=== PATIENT | female | born 1960 | race Caucasian/White ===

== ENCOUNTER 2016-12-29 17:51 | Inpatient (IN) | payer MEDICARE ==
[~2016-12-29] VITALS: Ht 175.3 cm; Wt 99.9 kg
[~2016-12-29 17:51] MED LIST: ALLEGRA-D 1212 HOUR PO; ALPRAZOLAM0.5 MG OR; ALPRAZOLAM0.5 MG PO; AUGMENTIN500TAB PO; BACTRIM DS1 TAB PO; BAYER ASPIRIN325 M1 PO; CALCIUM600 M1 PO; CAPOTEN12.5 MG PO; CIPRO XR500 MG PO; CIPROFLOXACN500 MG PO; DICLOXACILL500 MG PO; DOXYCYCL HYC100 MG PO; ECOTRIN325 MG PO; ENALAPRIL10 MG PO; FISH OIL1000 MG PO; FLONASE NASAL50 MCG; GLIPIZIDE10 M2 PO; GLIPIZIDE10 MG PO; K-99 PO; KEFLEX500 M1 PO; KEFLEX500 MG OR; KEPPRA500 M1 PO; KEPPRA500 M2 PO; KEPPRA500 MG PO; LASIX40 MG PO; LEVAQUIN500 MG PO; LEVAQUIN750 MG PO; LEVETIRACETAM500 MG PO; LEVOTHYROXIN100 MC1 PO; LEVOTHYROXIN125 MC1 PO; LEVOTHYROXIN125 MCG PO; LEVOTHYROXIN200 MCG PO; Levaquin PO; MACROBID100 MG PO; MAG OXIDE400 MG PO; MAGNESIUM200 MG PO; MAGNESIUM400 MG PO; MEDDOSEPAK PO; METFORMIN1000 MG PO; METFORMIN500 M1 PO; METRONIDAZOL500 MG PO; PERCOCET 5/325M1 TAB PO; POTASSIUM99 MG PO; ROBITUSSIN AC10 ML PO; SYNTHROID100 MCG PO; SYNTHROID125 MCG PO; SYNTHROID25 MCG PO; SYNTHROID300 MCG PO; TUMS500 MG PO; VENTOLIN HFA IN; VITAMIN D400 UNI1 PO; VITAMIN D400 UNI2 PO
[2016-12-29 18:40] LABS: HEMATOCRIT 29.4 % (37.0-47.0); HEMOGLOBIN 9.4 g/dl (12.0-16.0); IMMATURE GRANULOCYTES 0.5 % (0.0-1.0); MEAN CELL VOLUME 79.5 fL CALC (80.0-100.0); MEAN CORPUSCULAR HGB 25.4 pG CALC (26.0-32.0); NEUT# 8.28 thou/uL (2.00-7.15); RED BLOOD COUNT 3.7 mill/uL (4.20-5.60)
[2016-12-29 18:49] LABS: ALKALINE PHOSPHATASE 80 u/l (38-126); ANION GAP 17 (6-22 (CALC)); BILIRUBIN, TOTAL 0.4 mg/dL (0.0-1.4); BUN 16 mg/dL (7-17); BUN/CREATININE RATIO 21 (12-20 (CALC)); CARBON DIOXIDE 28 mmol/l (22-30); CHLORIDE 94 mmol/l (95-108); CREATININE 0.8 mg/dL (0.5-1.0); GFR > 60 ML/MIN (>=60 (CALC)); GFR FOR AFR.AMER. > 60 ML/MIN (>=60 (CALC)); GLUCOSE 224 mg/dL (65-105); POTASSIUM 4.1 mmol/l (3.5-5.1); SGOT/AST 49 u/l (14-36); SGPT/ALT 39 u/l (9-52); SODIUM 134 mmol/l (137-146); TOTAL PROTEIN 7.7 g/dL (6.3-8.2)
[2016-12-29 18:56] LABS: CALCIUM 4.3 mg/dL (8.4-10.2)
[2016-12-29 19:01] LABS: MYOGLOBIN 54 ng/mL (0 - 62)
[2016-12-29 23:00] VITALS: BP 138/77
[2016-12-29 23:30] VITALS: BP 138/63
[2016-12-29 23:45] VITALS: BP 135/82
[2016-12-29 23:53] LABS: URINE BILIRUBIN - DIPSTICK NEGATIVE (NEGATIVE); URINE BLOOD DIPSTICK SMALL (NEGATIVE); URINE CLARITY CLEAR; URINE COLOR YELLOW; URINE GLUCOSE - DIPSTICK NEGATIVE (NEGATIVE); URINE KETONE NEGATIVE (NEGATIVE); URINE LEUK ESTERASE TRACE (Negative); URINE NITRITE - DIPSTICK NEGATIVE (Negative); URINE PH 6.5 (4.5-8.0); URINE PROTEIN - DIPSTICK NEGATIVE (NEG-TRACE); URINE SPECIFIC GRAVITY <=1.005; URINE UROBILINOGEN - DIPSTICK 0.2 E.U./dL (0.2)
[2016-12-30 00:01] VITALS: BP 124/69
[2016-12-30 00:33] LABS: URINE SQUAMOUS EPITHELIAL CELL FEW EPI/hpf (0-FEW); URINE WBC 0-2 WBC/hpf (0-5)
[2016-12-30 02:00] VITALS: BP 139/65
[2016-12-30 04:00] VITALS: BP 128/70
[2016-12-30 06:00] VITALS: BP 127/77
[2016-12-30 06:22] LABS: HEMATOCRIT 29.1 % (37.0-47.0); HEMOGLOBIN 9.3 g/dl (12.0-16.0); IMMATURE GRANULOCYTES 0.2 % (0.0-1.0); MEAN CELL VOLUME 78.9 fL CALC (80.0-100.0); MEAN CORPUSCULAR HGB 25.2 pG CALC (26.0-32.0); NEUT# 6.09 thou/uL (2.00-7.15); RED BLOOD COUNT 3.69 mill/uL (4.20-5.60)
[2016-12-30 06:34] LABS: ALBUMIN 3.8 g/dL (3.2-5.0); ALKALINE PHOSPHATASE 90 u/l (38-126); ANION GAP 15 (6-22 (CALC)); BILIRUBIN, TOTAL 0.4 mg/dL (0.0-1.4); BUN 13 mg/dL (7-17); BUN/CREATININE RATIO 18 (12-20 (CALC)); CARBON DIOXIDE 28 mmol/l (22-30); CHLORIDE 98 mmol/l (95-108); CREATININE 0.7 mg/dL (0.5-1.0); GFR > 60 ML/MIN (>=60 (CALC)); GFR FOR AFR.AMER. > 60 ML/MIN (>=60 (CALC)); GLUCOSE 126 mg/dL (65-105); POTASSIUM 4.1 mmol/l (3.5-5.1); SGOT/AST 23 u/l (14-36); SGPT/ALT 38 u/l (9-52); SODIUM 136 mmol/l (137-146); TOTAL PROTEIN 7.4 g/dL (6.3-8.2)
[2016-12-30 07:53] LABS: TSH, 3RD GENERATION 3.4 uIU/mL (0.47 - 4.68)
[2016-12-30 13:23] LABS: C. DIFFICILE TOXIN A&B NEGATIVE (NEGATIVE)
[2016-12-30 18:47] LABS: ANION GAP 13 (6-22 (CALC)); BUN 12 mg/dL (7-17); BUN/CREATININE RATIO 22 (12-20 (CALC)); CARBON DIOXIDE 21 mmol/l (22-30); CHLORIDE 105 mmol/l (95-108); CREATININE 0.6 mg/dL (0.5-1.0); GFR > 60 ML/MIN (>=60 (CALC)); GFR FOR AFR.AMER. > 60 ML/MIN (>=60 (CALC)); GLUCOSE 134 mg/dL (65-105); POTASSIUM 4.1 mmol/l (3.5-5.1); SODIUM 136 mmol/l (137-146)
[2016-12-30 18:48] LABS: CALCIUM 4.4 mg/dL (8.4-10.2)
[2016-12-30 19:00] VITALS: BP 110/53
[2016-12-30 23:00] VITALS: BP 114/73
[2016-12-31] VITALS (9 sets, daily range): BP systolic 99–121; BP diastolic 52–71
[2016-12-31 06:33] LABS: HEMATOCRIT 30.4 % (37.0-47.0); HEMOGLOBIN 9.5 g/dl (12.0-16.0); IMMATURE GRANULOCYTES 0.4 % (0.0-1.0); MEAN CELL VOLUME 80.4 fL CALC (80.0-100.0); MEAN CORPUSCULAR HGB 25.1 pG CALC (26.0-32.0); MEAN CORPUSCULAR HGB CONC 31.3 g/L CALC (32.0-36.0); NEUT# 5.09 thou/uL (2.00-7.15); RED BLOOD COUNT 3.78 mill/uL (4.20-5.60); RED CELL DISTRI WIDTH 16.2 % (11.5-15.5)
[2016-12-31 06:52] LABS: ANION GAP 18 (6-22 (CALC)); BUN 14 mg/dL (7-17); BUN/CREATININE RATIO 19 (12-20 (CALC)); CARBON DIOXIDE 26 mmol/l (22-30); CHLORIDE 98 mmol/l (95-108); CREATININE 0.7 mg/dL (0.5-1.0); GFR > 60 ML/MIN (>=60 (CALC)); GFR FOR AFR.AMER. > 60 ML/MIN (>=60 (CALC)); GLUCOSE 96 mg/dL (65-105); POTASSIUM 4.4 mmol/l (3.5-5.1); SODIUM 137 mmol/l (137-146)
[2016-12-31 07:01] LABS: CALCIUM 5.5 mg/dL (8.4-10.2)
[2016-12-31 16:47] LABS: ALBUMIN 3.5 g/dL (3.2-5.0); ALKALINE PHOSPHATASE 69 u/l (38-126); ANION GAP 15 (6-22 (CALC)); BILIRUBIN, TOTAL 0.3 mg/dL (0.0-1.4); BUN 14 mg/dL (7-17); BUN/CREATININE RATIO 18 (12-20 (CALC)); CARBON DIOXIDE 27 mmol/l (22-30); CHLORIDE 103 mmol/l (95-108); CREATININE 0.8 mg/dL (0.5-1.0); GFR > 60 ML/MIN (>=60 (CALC)); GFR FOR AFR.AMER. > 60 ML/MIN (>=60 (CALC)); GLUCOSE 95 mg/dL (65-105); POTASSIUM 4.4 mmol/l (3.5-5.1); SGOT/AST 20 u/l (14-36); SGPT/ALT 32 u/l (9-52); SODIUM 140 mmol/l (137-146); TOTAL PROTEIN 6.8 g/dL (6.3-8.2)
[2016-12-31 16:55] LABS: CALCIUM 5.9 mg/dL (8.4-10.2)
[2017-01-01] VITALS (8 sets, daily range): BP systolic 106–140; BP diastolic 58–78
[2017-01-01 04:26] LABS: IMMATURE GRANULOCYTES 0.3 % (0.0-1.0); MEAN CELL VOLUME 81.7 fL CALC (80.0-100.0); MEAN CORPUSCULAR HGB 25.4 pG CALC (26.0-32.0); NEUT# 4.16 thou/uL (2.00-7.15); RED BLOOD COUNT 3.55 mill/uL (4.20-5.60); RED CELL DISTRI WIDTH 16.1 % (11.5-15.5)
[2017-01-01 04:31] LABS: ALBUMIN 3.5 g/dL (3.2-5.0); ALKALINE PHOSPHATASE 77 u/l (38-126); ANION GAP 15 (6-22 (CALC)); BILIRUBIN, TOTAL 0.3 mg/dL (0.0-1.4); BUN 15 mg/dL (7-17); BUN/CREATININE RATIO 21 (12-20 (CALC)); CARBON DIOXIDE 24 mmol/l (22-30); CHLORIDE 106 mmol/l (95-108); CREATININE 0.7 mg/dL (0.5-1.0); GFR > 60 ML/MIN (>=60 (CALC)); GFR FOR AFR.AMER. > 60 ML/MIN (>=60 (CALC)); GLUCOSE 101 mg/dL (65-105); POTASSIUM 4.9 mmol/l (3.5-5.1); SGOT/AST 68 u/l (14-36); SGPT/ALT 39 u/l (9-52); SODIUM 140 mmol/l (137-146); TOTAL PROTEIN 6.8 g/dL (6.3-8.2)
[2017-01-01 04:34] LABS: CALCIUM 5.6 mg/dL (8.4-10.2)
[2017-01-01 18:19] LABS: ANION GAP 17 (6-22 (CALC)); BUN 13 mg/dL (7-17); BUN/CREATININE RATIO 17 (12-20 (CALC)); CARBON DIOXIDE 26 mmol/l (22-30); CHLORIDE 103 mmol/l (95-108); CREATININE 0.7 mg/dL (0.5-1.0); GFR > 60 ML/MIN (>=60 (CALC)); GFR FOR AFR.AMER. > 60 ML/MIN (>=60 (CALC)); GLUCOSE 111 mg/dL (65-105); POTASSIUM 4.5 mmol/l (3.5-5.1); SODIUM 142 mmol/l (137-146)
[2017-01-02 02:00] VITALS: BP 101/53
[2017-01-02 03:03] VITALS: BP 110/70
[2017-01-02 04:02] VITALS: BP 110/68
[2017-01-02 04:41] LABS: HEMATOCRIT 28.5 % (37.0-47.0); HEMOGLOBIN 8.9 g/dl (12.0-16.0); IMMATURE GRANULOCYTES 0.3 % (0.0-1.0); MEAN CELL VOLUME 82.1 fL CALC (80.0-100.0); MEAN CORPUSCULAR HGB 25.6 pG CALC (26.0-32.0); MEAN CORPUSCULAR HGB CONC 31.2 g/L CALC (32.0-36.0); NEUT# 4.85 thou/uL (2.00-7.15); RED BLOOD COUNT 3.47 mill/uL (4.20-5.60); RED CELL DISTRI WIDTH 16.3 % (11.5-15.5)
[2017-01-02 04:49] LABS: ALBUMIN 3.7 g/dL (3.2-5.0); ALKALINE PHOSPHATASE 72 u/l (38-126); ANION GAP 15 (6-22 (CALC)); BILIRUBIN, TOTAL 0.3 mg/dL (0.0-1.4); BUN 13 mg/dL (7-17); BUN/CREATININE RATIO 17 (12-20 (CALC)); CARBON DIOXIDE 25 mmol/l (22-30); CHLORIDE 105 mmol/l (95-108); CREATININE 0.8 mg/dL (0.5-1.0); GFR > 60 ML/MIN (>=60 (CALC)); GFR FOR AFR.AMER. > 60 ML/MIN (>=60 (CALC)); GLUCOSE 74 mg/dL (65-105); POTASSIUM 4.8 mmol/l (3.5-5.1); SGOT/AST 31 u/l (14-36); SGPT/ALT 41 u/l (9-52); SODIUM 140 mmol/l (137-146)
[2017-01-02 06:10] VITALS: BP 103/58
[2017-01-02 19:00] VITALS: BP 136/71
[2017-01-02 22:40] VITALS: BP 119/67
[2017-01-03 04:32] LABS: HEMATOCRIT 29.5 % (37.0-47.0); HEMOGLOBIN 9.1 g/dl (12.0-16.0); IMMATURE GRANULOCYTES 0.4 % (0.0-1.0); MEAN CELL VOLUME 80.6 fL CALC (80.0-100.0); MEAN CORPUSCULAR HGB 24.9 pG CALC (26.0-32.0); MEAN CORPUSCULAR HGB CONC 30.8 g/L CALC (32.0-36.0); NEUT# 5.53 thou/uL (2.00-7.15); RED BLOOD COUNT 3.66 mill/uL (4.20-5.60); RED CELL DISTRI WIDTH 16.4 % (11.5-15.5)
[2017-01-03 04:45] LABS: ALBUMIN 3.6 g/dL (3.2-5.0); ALKALINE PHOSPHATASE 80 u/l (38-126); ANION GAP 14 (6-22 (CALC)); BILIRUBIN, TOTAL 0.4 mg/dL (0.0-1.4); BUN 12 mg/dL (7-17); BUN/CREATININE RATIO 15 (12-20 (CALC)); CARBON DIOXIDE 27 mmol/l (22-30); CHLORIDE 104 mmol/l (95-108); CREATININE 0.8 mg/dL (0.5-1.0); GFR > 60 ML/MIN (>=60 (CALC)); GFR FOR AFR.AMER. > 60 ML/MIN (>=60 (CALC)); GLUCOSE 76 mg/dL (65-105); POTASSIUM 4.4 mmol/l (3.5-5.1); SGOT/AST 23 u/l (14-36); SGPT/ALT 41 u/l (9-52); SODIUM 140 mmol/l (137-146); TOTAL PROTEIN 6.8 g/dL (6.3-8.2)
[2017-01-03 06:00] VITALS: BP 110/60
[2017-01-03] MEDS ORDERED: METRONIDAZOLE500 MG PO (07:48)
[2017-01-03] MEDS ORDERED: DICYCLOMINE HCL10 MG PO (07:49)
[2017-01-03 07:53] VITALS: BP 143/81
== END 2017-01-03 08:25 | disposition home or self-care (01) | DRG 641 ==
LOC: ENPENDDIS → ED 17:51 → ED-I 20:59 → ED 21:17 → ICU 21:17
PROVIDERS: Emergency Medicine; ADMIT Internal Medicine Geriatric Medicine; ATTEND Internal Medicine Geriatric Medicine
DX: E83.51 Hypocalcemia (principal); I11.0 Hypertensive heart disease with heart failure; I50.9 Heart failure, unspecified; E11.40 Type 2 diabetes mellitus with diabetic neuropathy, unspecified; I48.91 Unspecified atrial fibrillation; F32.9 Major depressive disorder, single episode, unspecified; E86.0 Dehydration; E87.1 Hypo-osmolality and hyponatremia; E78.5 Hyperlipidemia, unspecified; J44.9 Chronic obstructive pulmonary disease, unspecified; F17.210 Nicotine dependence, cigarettes, uncomplicated; E89.2 Postprocedural hypoparathyroidism; I25.10 Atherosclerotic heart disease of native coronary artery without angina pectoris; F41.9 Anxiety disorder, unspecified; M19.90 Unspecified osteoarthritis, unspecified site; M81.8 Other osteoporosis without current pathological fracture; E89.0 Postprocedural hypothyroidism; R19.7 Diarrhea, unspecified; Z91.14 Patient's other noncompliance with medication regimen; Z89.421 Acquired absence of other right toe(s); Z89.411 Acquired absence of right great toe
CPT/HCPCS: P9047

== ENCOUNTER 2017-02-12 16:35 | Inpatient (IN) | payer MEDICARE ==
[~2017-02-12] VITALS: Ht 175.3 cm; Wt 94.0 kg
[~2017-02-12 16:35] MED LIST changes: +DICYCLOMINE HCL10 MG PO; +METRONIDAZOLE500 MG PO
[2017-02-12 17:26] LABS: HEMATOCRIT 52.7 % (37.0-47.0); HEMOGLOBIN 16.7 g/dl (12.0-16.0); IMMATURE GRANULOCYTES 0.4 % (0.0-1.0); MEAN CELL VOLUME 82.7 fL CALC (80.0-100.0); MEAN CORPUSCULAR HGB 26.2 pG CALC (26.0-32.0); MEAN CORPUSCULAR HGB CONC 31.7 g/L CALC (32.0-36.0); NEUT# 9.82 thou/uL (2.00-7.15); RED BLOOD COUNT 6.37 mill/uL (4.20-5.60); RED CELL DISTRI WIDTH 23.7 % (11.5-15.5)
[2017-02-12 17:59] LABS: INTERNATIONAL NORMALIZED RATIO 1.5 RATIO (0.7-1.3); PROTHROMBIN TIME 16.4 SECONDS (9.0-12.5)
[2017-02-12 18:06] LABS: ALBUMIN 4.9 g/dL (3.2-5.0); BILIRUBIN, TOTAL 0.5 mg/dL (0.0-1.4); CALCIUM 6.7 mg/dL (8.4-10.2); CREATININE 1.2 mg/dL (0.5-1.0); POTASSIUM 4.4 mmol/l (3.5-5.1); TOTAL PROTEIN 8.7 g/dL (6.3-8.2)
[2017-02-12 18:14] LABS: C. DIFFICILE TOXIN A&B NEGATIVE (NEGATIVE)
[2017-02-12 18:21] LABS: URINE BILIRUBIN - DIPSTICK NEGATIVE (NEGATIVE); URINE BLOOD DIPSTICK NEGATIVE (NEGATIVE); URINE CLARITY CLEAR; URINE COLOR YELLOW; URINE GLUCOSE - DIPSTICK NEGATIVE (NEGATIVE); URINE KETONE TRACE mg/dL (NEGATIVE); URINE LEUK ESTERASE NEGATIVE (NEGATIVE); URINE NITRITE - DIPSTICK NEGATIVE (Negative); URINE PH 5.5 (4.5-8.0); URINE PROTEIN - DIPSTICK 30 mg/dL (NEG-TRACE); URINE SPECIFIC GRAVITY >=1.030; URINE UROBILINOGEN - DIPSTICK 0.2 E.U./dL (0.2)
[2017-02-12] MEDS ORDERED: LEVOTHYROXIN200 MCG PO (18:49)
[2017-02-12 18:51] LABS: URINE SQUAMOUS EPITHELIAL CELL FEW EPI/hpf (0-FEW)
[2017-02-12 19:40] VITALS: BP 112/53
[2017-02-13 00:04] VITALS: BP 115/64
[2017-02-13 04:44] VITALS: BP 113/66
[2017-02-13 05:33] LABS: HEMATOCRIT 36.6 % (37.0-47.0); HEMOGLOBIN 11.8 g/dl (12.0-16.0); IMMATURE GRANULOCYTES 0.4 % (0.0-1.0); MEAN CELL VOLUME 81.7 fL CALC (80.0-100.0); MEAN CORPUSCULAR HGB 26.3 pG CALC (26.0-32.0); MEAN CORPUSCULAR HGB CONC 32.2 g/L CALC (32.0-36.0); NEUT# 4.98 thou/uL (2.00-7.15); RED BLOOD COUNT 4.48 mill/uL (4.20-5.60); RED CELL DISTRI WIDTH 22.7 % (11.5-15.5)
[2017-02-13 05:51] LABS: ALBUMIN 3.5 g/dL (3.2-5.0); ALKALINE PHOSPHATASE 60 u/l (38-126); ANION GAP 14 (6-22 (CALC)); BILIRUBIN, TOTAL 0.5 mg/dL (0.0-1.4); BUN 20 mg/dL (7-17); BUN/CREATININE RATIO 26 (12-20 (CALC)); CARBON DIOXIDE 21 mmol/l (22-30); CHLORIDE 106 mmol/l (95-108); CREATININE 0.8 mg/dL (0.5-1.0); GFR > 60 ML/MIN (>=60 (CALC)); GFR FOR AFR.AMER. > 60 ML/MIN (>=60 (CALC)); GLUCOSE 97 mg/dL (65-105); POTASSIUM 4.4 mmol/l (3.5-5.1); SGOT/AST 17 u/l (14-36); SGPT/ALT 31 u/l (9-52); SODIUM 137 mmol/l (137-146); TOTAL PROTEIN 6.1 g/dL (6.3-8.2)
[2017-02-13 05:57] LABS: CALCIUM 5.6 mg/dL (8.4-10.2)
[2017-02-13 07:00] VITALS: BP 111/72
[2017-02-13 16:00] VITALS: BP 111/74
[2017-02-13 19:29] VITALS: BP 108/50
[2017-02-14 04:15] VITALS: BP 111/65
[2017-02-14 06:05] LABS: HEMATOCRIT 36.7 % (37.0-47.0); HEMOGLOBIN 12.4 g/dl (12.0-16.0); RED BLOOD COUNT 4.46 mill/uL (4.20-5.60)
[2017-02-14 06:06] LABS: LYMPH% 30 % (15-41); MEAN CELL VOLUME 82.3 fL CALC (80.0-100.0); MEAN CORPUSCULAR HGB 27.8 pG CALC (26.0-32.0); MEAN CORPUSCULAR HGB CONC 33.8 g/L CALC (32.0-36.0); NEUT% 61 % (42-76); PLATELET COUNT 218 thou/uL (130-400); RED CELL DISTRI WIDTH 21.7 % (11.5-15.5)
[2017-02-14 06:07] LABS: MONO% 9 % (2-13)
[2017-02-14 06:23] LABS: ALBUMIN 3.9 g/dL (3.2-5.0); ALKALINE PHOSPHATASE 63 u/l (38-126); ANION GAP 15 (6-22 (CALC)); BILIRUBIN, TOTAL 0.3 mg/dL (0.0-1.4); BUN 19 mg/dL (7-17); BUN/CREATININE RATIO 25 (12-20 (CALC)); CALCIUM 6.3 mg/dL (8.4-10.2); CARBON DIOXIDE 26 mmol/l (22-30); CHLORIDE 103 mmol/l (95-108); CREATININE 0.7 mg/dL (0.5-1.0); GFR > 60 ML/MIN (>=60 (CALC)); GFR FOR AFR.AMER. > 60 ML/MIN (>=60 (CALC)); GLUCOSE 89 mg/dL (65-105); POTASSIUM 4.7 mmol/l (3.5-5.1); SGOT/AST 22 u/l (14-36); SGPT/ALT 31 u/l (9-52); SODIUM 139 mmol/l (137-146); TOTAL PROTEIN 6.8 g/dL (6.3-8.2)
[2017-02-14 06:54] LABS: TSH, 3RD GENERATION 7.49 uIU/mL (0.47 - 4.68)
[2017-02-14 07:00] VITALS: BP 115/53
[2017-02-14] MEDS ORDERED: LEVOTHYROXIN100 MC1 PO (14:00)
[2017-02-14] MEDS ORDERED: LEVOTHYROXIN50 MC1 PO (14:01)
[2017-02-14] MEDS ORDERED: METRONIDAZOLE500 MG PO (14:02)
[2017-02-14 14:58] LABS: ALBUMIN 3.9 g/dL (3.2-5.0); ALKALINE PHOSPHATASE 56 u/l (38-126); ANION GAP 15 (6-22 (CALC)); BILIRUBIN, TOTAL 0.2 mg/dL (0.0-1.4); BUN 20 mg/dL (7-17); BUN/CREATININE RATIO 26 (12-20 (CALC)); CALCIUM 6.5 mg/dL (8.4-10.2); CARBON DIOXIDE 27 mmol/l (22-30); CHLORIDE 101 mmol/l (95-108); CREATININE 0.8 mg/dL (0.5-1.0); GFR > 60 ML/MIN (>=60 (CALC)); GFR FOR AFR.AMER. > 60 ML/MIN (>=60 (CALC)); GLUCOSE 151 mg/dL (65-105); POTASSIUM 4.9 mmol/l (3.5-5.1); SGOT/AST 28 u/l (14-36); SGPT/ALT 31 u/l (9-52); SODIUM 139 mmol/l (137-146)
== END 2017-02-14 15:56 | disposition home or self-care (01) | DRG 372 ==
LOC: ENPENDDIS → ED 16:35 → ED-I 18:23 → ED 18:48 → MS2 18:49
PROVIDERS: Emergency Medicine; ADMIT Internal Medicine; ATTEND Internal Medicine Geriatric Medicine
DX: A04.5 Campylobacter enteritis (principal); N17.9 Acute kidney failure, unspecified; E11.42 Type 2 diabetes mellitus with diabetic polyneuropathy; E11.51 Type 2 diabetes mellitus with diabetic peripheral angiopathy without gangrene; E83.51 Hypocalcemia; F17.210 Nicotine dependence, cigarettes, uncomplicated; E89.2 Postprocedural hypoparathyroidism; J44.9 Chronic obstructive pulmonary disease, unspecified; I25.10 Atherosclerotic heart disease of native coronary artery without angina pectoris; I48.91 Unspecified atrial fibrillation; F41.9 Anxiety disorder, unspecified; F32.9 Major depressive disorder, single episode, unspecified; M19.90 Unspecified osteoarthritis, unspecified site; Z89.411 Acquired absence of right great toe; Z91.14 Patient's other noncompliance with medication regimen
CPT/HCPCS: G0378

== ENCOUNTER 2017-04-20 13:40 | Emergency (ER) | payer MEDICARE ==
[~2017-04-20] VITALS: Ht 175.3 cm; Wt 80.0 kg
[~2017-04-20 13:40] MED LIST changes: +LEVOTHYROXIN50 MC1 PO
[2017-04-20] MEDS ORDERED: MUPIROCIN2 % EX (13:55)
[2017-04-20] MEDS ORDERED: BACTRIM DS1 TAB PO (13:57)
[2017-04-20 14:01] VITALS: BP 167/99
== END 2017-04-20 14:01 | disposition home or self-care (01) ==
LOC: ED 13:40
DX: S91.202A Unspecified open wound of left great toe with damage to nail, initial encounter (principal); E11.621 Type 2 diabetes mellitus with foot ulcer; W45.8XXA Other foreign body or object entering through skin, initial encounter; Y93.E8 Activity, other personal hygiene; Y92.009 Unspecified place in unspecified non-institutional (private) residence as the place of occurrence of the external cause

== ENCOUNTER 2017-05-05 19:28 | Emergency (ER) | payer MEDICARE ==
[~2017-05-05] VITALS: Ht 175.3 cm; Wt 60.0 kg
[~2017-05-05 19:28] MED LIST changes: +MUPIROCIN2 % EX
[2017-05-05 21:00] VITALS: BP 101/78
[2017-05-05 21:24] LABS: HEMATOCRIT 44.1 % (37.0-47.0); HEMOGLOBIN 15.3 g/dl (12.0-16.0); IMMATURE GRANULOCYTES 0.2 % (0.0-1.0); MEAN CELL VOLUME 85.3 fL CALC (80.0-100.0); MEAN CORPUSCULAR HGB 29.6 pG CALC (26.0-32.0); MEAN CORPUSCULAR HGB CONC 34.7 g/L CALC (32.0-36.0); NEUT# 9.43 thou/uL (2.00-7.15); RED BLOOD COUNT 5.17 mill/uL (4.20-5.60); RED CELL DISTRI WIDTH 16.1 % (11.5-15.5)
[2017-05-05 21:35] LABS: ALBUMIN 4.3 g/dL (3.2-5.0); ALKALINE PHOSPHATASE 62 u/l (38-126); ANION GAP 19 (6-22 (CALC)); BILIRUBIN, TOTAL 0.6 mg/dL (0.0-1.4); BUN 18 mg/dL (7-17); BUN/CREATININE RATIO 21 (12-20 (CALC)); CALCIUM 7.2 mg/dL (8.4-10.2); CARBON DIOXIDE 22 mmol/l (22-30); CHLORIDE 98 mmol/l (95-108); CREATININE 0.9 mg/dL (0.5-1.0); GFR > 60 ML/MIN (>=60 (CALC)); GFR FOR AFR.AMER. > 60 ML/MIN (>=60 (CALC)); GLUCOSE 144 mg/dL (65-105); SGOT/AST 18 u/l (14-36); SGPT/ALT 32 u/l (9-52); SODIUM 135 mmol/l (137-146); TOTAL PROTEIN 7.4 g/dL (6.3-8.2)
[2017-05-05 22:53] LABS: C. DIFFICILE TOXIN A&B NEGATIVE (NEGATIVE)
== END 2017-05-05 21:05 | disposition left against medical advice (07) ==
LOC: ED 19:28
PROVIDERS: Emergency Medicine
DX: R19.7 Diarrhea, unspecified (principal); S91.302A Unspecified open wound, left foot, initial encounter; E03.9 Hypothyroidism, unspecified; E78.5 Hyperlipidemia, unspecified; J44.9 Chronic obstructive pulmonary disease, unspecified; E11.40 Type 2 diabetes mellitus with diabetic neuropathy, unspecified; I11.0 Hypertensive heart disease with heart failure; I50.9 Heart failure, unspecified; F17.210 Nicotine dependence, cigarettes, uncomplicated; X58.XXXA Exposure to other specified factors, initial encounter; Z91.19 Patient's noncompliance with other medical treatment and regimen

== ENCOUNTER 2017-08-10 12:00 | Inpatient (IN) | payer MEDICARE ==
[~2017-08-10] VITALS: Ht 175.3 cm; Wt 88.0 kg
[2017-08-10] VITALS (8 sets, daily range): BP systolic 96–124; BP diastolic 52–64
[~2017-08-10 12:00] MED LIST changes: +CEPHALEXIN500 MG PO
--- NOTE | 2017-08-10 12:27 | NUR ---
PT TO ROOM 16 VIA EMS, NOW WITH IVF RUNNING, BEDSIDE COMMODE AVAILABLE, BLANKET PROVIDED.
--- NOTE | 2017-08-10 12:40 | NUR ---
PATIENT UP TO BSC WITH STANDBY ASSIST. NO RESP DISTRESS NOTED. STOOL SAMPLE COLLECTED. CALL LIGHT WITHIN REACH, WILL CONTINUE TO MONITOR.
--- NOTE | 2017-08-10 13:05 | NUR ---
REPORT GIVEN TO LEELA URIAS. CARE RELINQUISHED.
[2017-08-10 13:08] LABS: IMMATURE GRANULOCYTES 0.4 % (0.0-1.0); MEAN CELL VOLUME 92.1 fL CALC (80.0-100.0); MEAN CORPUSCULAR HGB 32.1 pG CALC (26.0-32.0); MEAN CORPUSCULAR HGB CONC 34.9 g/L CALC (32.0-36.0); NEUT# 13.73 thou/uL (2.00-7.15); RED BLOOD COUNT 4.67 mill/uL (4.20-5.60); RED CELL DISTRI WIDTH 13.6 % (11.5-15.5)
[2017-08-10 13:20] LABS: ALKALINE PHOSPHATASE 65 u/l (38-126); AMYLASE < 30 u/l (30-110); ANION GAP 16 (6-22 (CALC)); BILIRUBIN, TOTAL 0.4 mg/dL (0.0-1.4); BUN 19 mg/dL (7-17); BUN/CREATININE RATIO 19 (12-20 (CALC)); CARBON DIOXIDE 22 mmol/l (22-30); CHLORIDE 103 mmol/l (95-108); GFR 57 ML/MIN (>=60 (CALC)); GFR FOR AFR.AMER. > 60 ML/MIN (>=60 (CALC)); GLUCOSE 160 mg/dL (65-105); LIPASE 100 u/l (23-300); POTASSIUM 4.7 mmol/l (3.5-5.1); SGOT/AST 19 u/l (14-36); SGPT/ALT 29 u/l (9-52); SODIUM 137 mmol/l (137-146); TOTAL PROTEIN 6.8 g/dL (6.3-8.2)
[2017-08-10 13:22] LABS: CALCIUM 5.5 mg/dL (8.4-10.2)
[2017-08-10 13:31] LABS: MYOGLOBIN 62 ng/mL (0 - 62)
--- NOTE | 2017-08-10 13:45 | NUR ---
SBAR PRINTED TO FLOOR
[2017-08-10 13:57] LABS: C. DIFFICILE TOXIN A&B NEGATIVE (NEGATIVE)
--- NOTE | 2017-08-10 14:25 | NUR ---
PT ADMITTED TO ICU BED 1 FOR HYPOTENSION AND HYPOCALCEMIA, PT ALERT AND ORIENTED, STOOD OFF STRETCHER AND TRANSFERRED TO BED WITH MIN ASSIST, ADMISSION ASSESSMENT COMPLETED SEE INTERVENTIONS, PT COMPLAINS OF WEAKNESS, DIZZINESS AND DIARRHEA AT HOME. 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 PT REQUESTING COFFEE AND FOOD, WHEN INFORMED OF POTENTIAL NPO STATUS PT STATES "THEN I MIGHT WELL GET DRESSED AND GO HOME, CAUSE I AIN'T HAD NOTHING TO EAT SINCE 0500 AM AND I AIN'T GOING ALL NIGHT WITH NOTHING" INFORMED PT OF NEED TO CHECK ORDERS AND WILL CONTACT
--- NOTE | 2017-08-10 14:25 | NUR ---
Admission Note Report Given to: sbar printed to floor Transported by: Wheelchair x Stretcher Transported with: x Nurse Transporter x Patent IV O2 x Reinforcing Metal Worker
--- NOTE | 2017-08-10 14:43 | NUR ---
PT TO ICU-1 WITHOUT INCIDENT, REPORT TO MARTINE SWENSON.
--- NOTE | 2017-08-10 14:55 | NUR ---
DIET PROVIDED AND COFFEE PER PT REQUEST. BP REMAINS STABLE, IVF CONTINUE ORDERED, WILL CONTINUE TO MONITOR.
[2017-08-10 17:30] LABS: URINE BILIRUBIN - DIPSTICK NEGATIVE (NEGATIVE); URINE BLOOD DIPSTICK TRACE-INTACT (NEGATIVE); URINE COLOR YELLOW; URINE GLUCOSE - DIPSTICK NEGATIVE (NEGATIVE); URINE KETONE NEGATIVE (NEGATIVE); URINE LEUK ESTERASE TRACE (NEGATIVE); URINE NITRITE - DIPSTICK NEGATIVE (Negative); URINE PROTEIN - DIPSTICK NEGATIVE (NEG-TRACE); URINE SPECIFIC GRAVITY 1.015; URINE UROBILINOGEN - DIPSTICK 0.2 E.U./dL (0.2)
--- NOTE | 2017-08-10 17:30 | NUR ---
ACCU CHECK COMPLETED AND COVERAGE GIVEN ORDERED, SET UP ASSIST PROVIDED FOR PM MEAL, WILL CONTINUE TO MONITOR
[2017-08-10 17:32] LABS: URINE CLARITY CLEAR
--- NOTE | 2017-08-10 18:47 | NUR ---
PT ASSISTED TO BSC THEN BACK TO SITTING ON EDGE OF BED, CONTINENT OF CLEAR YELLOW URINE, PT DECLINE [facility]. CALL YANG WITHIN REACH
--- NOTE | 2017-08-10 18:50 | NUR ---
REPORT FROM LEELA FARLEY. ASSUMED PT. CARE.
--- NOTE | 2017-08-10 20:00 | NUR ---
PT. FOUND AWAKE, ALERT, ORIENTED X 3. INTRODUCED SELF TO PATIENT. UPDATED ON PLAN OF CARE FOR THE NIGHT, AND ANTIBIOTIC ADMINISTRATION. PT. IS ISOLATION PRECAUTION FOR KNOWN BEDBUG INFESTATION. PER ER STAFF, MULTIPLE BED BUGS WERE DISCOVERED BY PEST CONTROL WHILE THEY WERE TREATING THE ER ROOM DOWNSTAIRS. PT. DENIES COMPLAINTS OF PAIN AT THIS TIME OTHER THAN SOME CHRONIC BACK PAIN. IV FLUIDS INFUSING AT 100 CC/HR AT THIS TIME. PT. PROVIDED WITH MILD, TURKEY SANDWICH, AND PUDDING PER HER REQUEST. RESPS EVEN AND UNLABORED. SKIN WARM AND DRY. AFEBRILE AT 96.8. PT. DENIES OTHER NEEDS. ALL LEADS REPLACED SEVERE ARTIFACT NOTED. PULSES NOTED THROUGHOUT. LUNGS CTA. CALL LIGHT PLACED WITHIN REACH. WILL CONTINUE TO MONITOR.
--- NOTE | 2017-08-10 21:40 | NUR ---
PT. ASSISTED TO BEDSIDE COMMODE AT THIS TIME. PROVIDED WITH WATER PER HER REQUEST. WILL CONTINUE TO MONITOR.
--- NOTE | 2017-08-10 23:40 | NUR ---
PT. ASSISTED TO AND FROM BEDSIDE COMMODE. IV FLUIDS CONTINUE TO INFUSE ORDERED WITHOUT SX OF INFILTRATION OR EXTRAVASATION. AMBIENT ROOM TEMP CHANGED PER PATIENT REQUEST. PT. PLACED BACK ON MONITOR. CALL LIGHT PLACED BACK WITHIN REACH. WILL CONTINUE TO ASSESS.
[2017-08-11] VITALS: BP 113/65
--- NOTE | 2017-08-11 01:14 | NUR ---
PT. ASSISTED BACK TO BEDSIDE COMMODE. PT. AMBULATORY WITH STEADY GAIT TO AND FROM [facility]. PLACED BACK ON THE MONITOR. GOWN CHANGED PT. SPILLED WATER ON HERSELF. DENIES COMPLAINTS OF PAIN OR NEED AT THIS TIME.
--- NOTE | 2017-08-11 01:40 | NUR ---
PT. RESTING IN BED WITH EYES CLOSED. RESPS EVEN AND UNLABORED. DENIES COMPLAINTS OR NEEDS. VSS. REMAINS STABLE. IV FLUIDS CONTINUE TO INFUSE WITHOUT SX OF INFILTRATION.
[2017-08-11 02:00] VITALS: BP 99/55
--- NOTE | 2017-08-11 03:25 | NUR ---
PT. AWAKE, ALERT, ORIENTED X 3. ASSISTED BACK TO RESTROOM AT THIS TIME. APPROX 400 CC CLEAR URINE OUT AT THIS TIME. PT. RESTING COMFORTABLY, ONLY COMPLAINT IS SOME MILD BACK PAIN WHICH SHE INDICATES IS "LAYING DOWN FOR TOO LONG". PT. STATES SHE IS NORMALLY UP AND AROUND. VSS. NO DISTRESS NOTED.
[2017-08-11 04:00] VITALS: BP 128/55
--- NOTE | 2017-08-11 05:16 | NUR ---
PT. ASSISTED BACK TO BEDSIDE COMMODE. PT. SITTING AT BEDSIDE AT THIS TIME. REQUESTING COFFEE. LAB AT BEDSIDE. PT. INFORMED THAT THIS RN WILL MAKE SOME COFFEE AND BRING WHEN DONE. DENIES COMPLAINTS. VSS.
[2017-08-11 05:43] LABS: ANION GAP 14 (6-22 (CALC)); BUN 17 mg/dL (7-17); BUN/CREATININE RATIO 24 (12-20 (CALC)); CARBON DIOXIDE 22 mmol/l (22-30); CHLORIDE 108 mmol/l (95-108); CREATININE 0.7 mg/dL (0.5-1.0); GFR > 60 ML/MIN (>=60 (CALC)); GFR FOR AFR.AMER. > 60 ML/MIN (>=60 (CALC)); GLUCOSE 101 mg/dL (65-105); POTASSIUM 4.7 mmol/l (3.5-5.1); SODIUM 140 mmol/l (137-146)
[2017-08-11 05:45] LABS: HEMATOCRIT 35.6 % (37.0-47.0); HEMOGLOBIN 12.5 g/dl (12.0-16.0); MEAN CELL VOLUME 91.5 fL CALC (80.0-100.0); MEAN CORPUSCULAR HGB 32.1 pG CALC (26.0-32.0); MEAN CORPUSCULAR HGB CONC 35.1 g/L CALC (32.0-36.0); RED BLOOD COUNT 3.89 mill/uL (4.20-5.60); RED CELL DISTRI WIDTH 13.5 % (11.5-15.5)
[2017-08-11 05:49] LABS: CALCIUM 5.5 mg/dL (8.4-10.2)
[2017-08-11 05:59] VITALS: BP 128/55
--- NOTE | 2017-08-11 07:25 | NUR ---
PT ALERT AND ORIENTED SITTING UP IN BED, AM ASSESSMENT COMPLETED, SEE INTERVENTIONS, BP HAS REAMINED STABLE PT STATES SHE IS FEELING BETTER AND HOPING TO GO HOME TODAY, SKIN INTAKE WITH NO BREAKDOWN NOTED, ABD SOFT AND BS ACTIVE, PT DENIES DIARRHEA SINCE ADMISSION, IVF INFUSING AT PRESCRIBED RATE, SITE W/O REDNESS OR SWELLING, ENCOURAGED TO CALL FOR ANY NEEDED ASSISTANCE, WILL CONTINUE TO MONITOR.
--- NOTE | 2017-08-11 07:40 | NUR ---
SET UP ASSISTANCE PROVIDED FOR AM MEAL, ACCU CHECK COMPLETED NO COVERAGE REQUIRED, CALL YANG WITHIN REACH
--- NOTE | 2017-08-11 08:14 | NUR ---
PT UP TO BSC, CONTINENT OF CLEAR YELLOW/MALORIE URINE. AGAIN DECLINES [facility], STILL NO BM SINCE ARRIVAL, IVF CONTINUE TELE READING SR RATE IN THE 60'S, WILL CONTINUE TO MONITOR.
--- NOTE | 2017-08-11 08:36 | NUR ---
SPOUSE AT BEDSIDE. PT OOB TO BSC AGAIN AND BACK TO BED, DECLINES [facility] EVERY TIME, CALL YANG WITHIN REACH
[2017-08-11] MEDS ORDERED: CALCITRIOL0.25 MC1 PO (09:24)
[2017-08-11] MEDS ORDERED: CIPROFLOXACIN250 MG PO (09:24)
[2017-08-11] MEDS ORDERED: METRONIDAZOLE500 MG PO (09:24)
[2017-08-11] MEDS ORDERED: CIPROFLOXACN500 MG PO (10:00)
--- NOTE | 2017-08-11 10:18 | NUR ---
pt received discharge instructions. pt wanted a taxi called 3 different taxis and will have 2 diffferent cabs enroute. inquired if she wanted a wheel chair, said no i want to go downstairs. i am waiting where they have to get labs done. iv site has been discontinued catheter intact,. hrt monitor removed by pt. "stated i just want to get out of here".
== END 2017-08-11 10:20 | disposition home or self-care (01) | DRG 315 ==
LOC: ED 12:00 → ED-I 13:34 → ED 13:49 → ICU 13:50
PROVIDERS: Emergency Medicine; ADMIT Internal Medicine; ATTEND Internal Medicine
DX: I95.9 Hypotension, unspecified (principal); E87.1 Hypo-osmolality and hyponatremia; E11.40 Type 2 diabetes mellitus with diabetic neuropathy, unspecified; K52.9 Noninfective gastroenteritis and colitis, unspecified; E86.0 Dehydration; E83.51 Hypocalcemia; E89.2 Postprocedural hypoparathyroidism; I10 Essential (primary) hypertension; E78.5 Hyperlipidemia, unspecified; J44.9 Chronic obstructive pulmonary disease, unspecified; F17.210 Nicotine dependence, cigarettes, uncomplicated; E03.9 Hypothyroidism, unspecified; G40.909 Epilepsy, unspecified, not intractable, without status epilepticus

== ENCOUNTER 2017-09-28 14:27 | Emergency (ER) | payer MEDICARE ==
[~2017-09-28] VITALS: Ht 175.3 cm; Wt 90.0 kg
[~2017-09-28 14:27] MED LIST changes: +CALCITRIOL0.25 MC1 PO; +CIPROFLOXACIN250 MG PO; -VITAMIN D400 UNI2 PO
[2017-09-28] MEDS ORDERED: OS-CAL 500500 M1 PO (15:16)
[2017-09-28] MEDS ORDERED: METFORMIN500 M2 PO (15:19)
[2017-09-28] MEDS ORDERED: GLUCOTROL10 MG PO (15:20)
[2017-09-28] MEDS ORDERED: LEVETIRACETAM500 MG PO (15:21)
[2017-09-28] MEDS ORDERED: LEVOTHYROXIN100 MC1 PO (15:22)
[2017-09-28] MEDS ORDERED: LASIX 40 MG TAB40 MG PO (15:23)
[2017-09-28] MEDS ORDERED: ENALAPRIL10 MG PO (15:23)
[2017-09-28 17:45] VITALS: BP 170/79
[2017-09-28] MEDS ORDERED: LORTAB 5/3255 MG PO (17:49)
== END 2017-09-28 17:45 | disposition home or self-care (01) ==
LOC: ED 14:27
DX: S32.10XA Unspecified fracture of sacrum, initial encounter for closed fracture (principal); W18.39XA Other fall on same level, initial encounter; Y92.009 Unspecified place in unspecified non-institutional (private) residence as the place of occurrence of the external cause; R94.31 Abnormal electrocardiogram [ECG] [EKG]; I10 Essential (primary) hypertension; G40.909 Epilepsy, unspecified, not intractable, without status epilepticus; F17.210 Nicotine dependence, cigarettes, uncomplicated

== ENCOUNTER 2017-09-29 15:48 | Inpatient (IN) | payer MEDICARE ==
[2017-09-29] VITALS (8 sets, daily range): BP systolic 148–179; BP diastolic 59–83
[~2017-09-29] VITALS: Ht 274.3 cm; Wt 81.0 kg
[~2017-09-29 15:48] MED LIST changes: +GLUCOTROL10 MG PO; +LASIX 40 MG TAB40 MG PO; +LORTAB 5/3255 MG PO; +METFORMIN500 M2 PO; +OS-CAL 500500 M1 PO
[2017-09-29 16:58] LABS: HEMATOCRIT 42.3 % (37.0-47.0); HEMOGLOBIN 14.5 g/dl (12.0-16.0); IMMATURE GRANULOCYTES 0.5 % (0.0-1.0); MEAN CELL VOLUME 94.4 fL CALC (80.0-100.0); MEAN CORPUSCULAR HGB 32.4 pG CALC (26.0-32.0); MEAN CORPUSCULAR HGB CONC 34.3 g/L CALC (32.0-36.0); NEUT# 8.91 thou/uL (2.00-7.15); RED BLOOD COUNT 4.48 mill/uL (4.20-5.60); RED CELL DISTRI WIDTH 12.4 % (11.5-15.5)
[2017-09-29 17:30] LABS: ALBUMIN 4.3 g/dL (3.2-5.0); BILIRUBIN, TOTAL 0.7 mg/dL (0.0-1.4); CREATININE 2.4 mg/dL (0.5-1.0); POTASSIUM 3.8 mmol/l (3.5-5.1)
[2017-09-29 17:39] LABS: CALCIUM 18.1 mg/dL (8.4-10.2)
[2017-09-29 17:44] LABS: URINE BILIRUBIN - DIPSTICK NEGATIVE (NEGATIVE); URINE BLOOD DIPSTICK TRACE-INTACT (NEGATIVE); URINE COLOR YELLOW; URINE GLUCOSE - DIPSTICK NEGATIVE (NEGATIVE); URINE KETONE TRACE mg/dL (NEGATIVE); URINE LEUK ESTERASE TRACE (NEGATIVE); URINE NITRITE - DIPSTICK NEGATIVE (Negative); URINE PH 6.5 (4.5-8.0); URINE PROTEIN - DIPSTICK NEGATIVE (NEG-TRACE); URINE SPECIFIC GRAVITY 1.015; URINE UROBILINOGEN - DIPSTICK 0.2 E.U./dL (0.2)
[2017-09-29 17:52] LABS: URINE CLARITY CLEAR
[2017-09-29 18:03] LABS: BARBITURATES NEGATIVE (NEGATIVE); COCAINE NEGATIVE (NEGATIVE); METHADONE NEGATIVE (NEGATIVE); OXCYCODONE NEGATIVE (NEGATIVE); TETRAHYDROCANNABIONOL NEGATIVE (NEGATIVE); TRICYLIC ANTIDEPRESSANTS NEGATIVE (NEGATIVE)
[2017-09-29 18:05] LABS: INFLUENZA A NONE DETECTED (NONE DETECT); INFLUENZA B NONE DETECTED (NONE DETECT)
[2017-09-29 20:27] LABS: CREATININE 2.2 mg/dL (0.5-1.0); POTASSIUM 3.4 mmol/l (3.5-5.1)
[2017-09-29 20:40] LABS: CALCIUM 17.8 mg/dL (8.4-10.2)
[2017-09-30] VITALS (10 sets, daily range): BP systolic 138–171; BP diastolic 68–89
[2017-09-30 05:06] LABS: HEMATOCRIT 45.4 % (37.0-47.0); HEMOGLOBIN 15.8 g/dl (12.0-16.0); MEAN CELL VOLUME 92.5 fL CALC (80.0-100.0); MEAN CORPUSCULAR HGB 32.2 pG CALC (26.0-32.0); MEAN CORPUSCULAR HGB CONC 34.8 g/L CALC (32.0-36.0); RED BLOOD COUNT 4.91 mill/uL (4.20-5.60); RED CELL DISTRI WIDTH 12.3 % (11.5-15.5)
[2017-09-30 05:27] LABS: ALBUMIN 5.1 g/dL (3.2-5.0); BUN 48 mg/dL (7-17); CHLORIDE 91 mmol/l (95-108); CREATININE 2.4 mg/dL (0.5-1.0); GFR 21 ML/MIN (>=60 (CALC)); GFR FOR AFR.AMER. 25 ML/MIN (>=60 (CALC)); GLUCOSE 72 mg/dL (65-105); POTASSIUM 3.2 mmol/l (3.5-5.1); SODIUM 145 mmol/l (137-146)
[2017-09-30 05:34] LABS: CARBON DIOXIDE 39 mmol/l (22-30)
[2017-09-30 08:06] LABS: CREATININE 2.4 mg/dL (0.5-1.0); POTASSIUM 3.3 mmol/l (3.5-5.1)
[2017-09-30 08:17] LABS: CALCIUM 18.2 mg/dL (8.4-10.2)
== END 2017-09-30 11:49 | DRG 917 ==
LOC: ED 15:48 → ED-I 17:49 → ED 18:06 → ICU 18:07
PROVIDERS: Family Medicine; Internal Medicine Nephrology; ADMIT Internal Medicine; ATTEND Internal Medicine
PROC: 0T9B70Z Drainage of Bladder with Drainage Device, Via Natural or Artificial Opening (ICD-10-PCS; principal; 2017-09-29)
DX: T47.1X1A Poisoning by other antacids and anti-gastric-secretion drugs, accidental (unintentional), initial encounter (principal); G93.41 Metabolic encephalopathy; N17.9 Acute kidney failure, unspecified; E11.40 Type 2 diabetes mellitus with diabetic neuropathy, unspecified; E83.52 Hypercalcemia; E11.649 Type 2 diabetes mellitus with hypoglycemia without coma; I10 Essential (primary) hypertension; F17.210 Nicotine dependence, cigarettes, uncomplicated; G40.909 Epilepsy, unspecified, not intractable, without status epilepticus; E89.0 Postprocedural hypothyroidism; E89.2 Postprocedural hypoparathyroidism; E78.5 Hyperlipidemia, unspecified; J44.9 Chronic obstructive pulmonary disease, unspecified; E87.6 Hypokalemia
CPT/HCPCS: J3489

== ENCOUNTER 2017-10-15 21:28 | Observation (INO) | payer MEDICARE ==
[~2017-10-15] VITALS: Ht 172.7 cm; Wt 78.9 kg
[2017-10-15 22:01] LABS: HEMATOCRIT 34.3 % (37.0-47.0); HEMOGLOBIN 12.2 g/dl (12.0-16.0); IMMATURE GRANULOCYTES 0.7 % (0.0-1.0); MEAN CELL VOLUME 89.6 fL CALC (80.0-100.0); MEAN CORPUSCULAR HGB 31.9 pG CALC (26.0-32.0); MEAN CORPUSCULAR HGB CONC 35.6 g/L CALC (32.0-36.0); NEUT# 5.82 thou/uL (2.00-7.15); RED BLOOD COUNT 3.83 mill/uL (4.20-5.60); RED CELL DISTRI WIDTH 14.2 % (11.5-15.5)
[2017-10-15 22:27] LABS: ALBUMIN 3.4 g/dL (3.2-5.0); BILIRUBIN, TOTAL 0.1 mg/dL (0.0-1.4); CREATININE 1.5 mg/dL (0.5-1.0); POTASSIUM 4.7 mmol/l (3.5-5.1)
--- NOTE | 2017-10-15 22:51 | NUR ---
PT GIVEN BLANKETS/REPOSITIONED A COUPLE OF TIMES. PT PLACED ON BEDPAN. AT BEDSIDE.
--- NOTE | 2017-10-15 23:20 | NUR ---
PT GIVEN WATER
--- NOTE | 2017-10-15 23:39 | NUR ---
REGISTRATION AT BEDSIDE
--- NOTE | 2017-10-16 00:15 | NUR ---
PT GIVEN TURKEY SANDWICH/DRINK.
--- NOTE | 2017-10-16 00:26 | NUR ---
REPORT TO DEAN SWENSON.
--- NOTE | 2017-10-16 01:10 | NUR ---
PT TO ICU BED 1 VIA STRETCHER ACCOMPANIED BY ER STAFF. PT TRANSFERRED TO BED MINIMAL ASSIST. PT IS ALERT AND ORIENTED X3. PERRLA. LUNGS ARE CLEAR. RESP ARE EVEN AND UNLABORED. PT DENIES PAIN. HR REGULAR. PULSES PALPABLE THROUGHOUT. NO EDEMA NOTED. BS ACTIVE. PT REPORTS A NORMAL BM EARLIER TODAY. #20 LFA WITH NS @100cc/HR INFUSING. NO REDNESS OR EDEMA NOTED. WILL CONTINUE TO MONITOR
[2017-10-16 01:15] VITALS: BP 115/54
--- NOTE | 2017-10-16 04:30 | NUR ---
COMPLETE BED CHANGE. PT STATES THAT SHE URINATED IN TRASH CAN. URINE NOTED ON FLOOR. PT CONTINUES TO BE ALERT AND ORIENTED X3. VSS.
--- NOTE | 2017-10-16 06:21 | NUR ---
LAB INTO DRAW AM LABS
[2017-10-16 06:55] LABS: CREATININE 1.2 mg/dL (0.5-1.0)
[2017-10-16 07:00] LABS: POTASSIUM 5.2 mmol/l (3.5-5.1)
--- NOTE | 2017-10-16 07:10 | NUR ---
resting in bed with eyes closed; easily aroused; no distress noted; assessment completed at this time; pt alert and oriented; denies pain/chest pain; no n/v noted; resp even and unlabored; lungs clear; ra; skin color wnl; hr reg; strong radial pulses; strong left pedal pulses; no edema noted; sr on monitor; abd soft with bs present; no bm noted per designer writer; pt admits to voiding without pain or burning; no urine to inspect at this time; bsc; #20 ems site in lac patent with ivf infusing without complication; no redness or edema noted at site; bruising noted to lower abd; right partial foot amputee; plan of care/ am meds explained; call light within reach; will continue to monitor
[2017-10-16 08:00] VITALS: BP 104/60
--- NOTE | 2017-10-16 08:10 | NUR ---
Dr Byers at bedside to discuss plan of care
--- NOTE | 2017-10-16 11:34 | NUR ---
pt refused accucheck check; pt demanding to be discharged within 1 hr; pt states "I'll just get up and get out of her myself";
--- NOTE | 2017-10-16 11:49 | NUR ---
pt states to staff "you have 30 minutes and I'm leaving"
--- NOTE | 2017-10-16 11:58 | NUR ---
meal tray provided; pt states "I/m ready to get the hell out of here"; pt states she has olny received her tums this am; administered meds reviewed; pt becomes veru agitated; awaiting MD
--- NOTE | 2017-10-16 12:00 | NUR ---
Dr Byers notified of pt request to leave NOW; informed pt wishes to sign out AMA: no orders received; will continue to monitor
--- NOTE | 2017-10-16 12:10 | NUR ---
pt explained risks of leaving AMA; pt continues to demand to leave; MD aware; AMA signed; #20 removed from rac with catheter tip intact; pt explained to return to ER or MD office is symptoms or condition worsens;
[2017-10-16 12:27] VITALS: BP 115/53
== END 2017-10-16 12:21 | disposition left against medical advice (07) ==
LOC: ED 21:28 → ED-I 23:11 → ED 23:21 → ICU 23:22
PROVIDERS: Emergency Medicine; ADMIT Internal Medicine; ATTEND Internal Medicine
DX: R07.9 Chest pain, unspecified (principal); N17.9 Acute kidney failure, unspecified; E87.2 Acidosis; I12.9 Hypertensive chronic kidney disease with stage 1 through stage 4 chronic kidney disease, or unspecified chronic kidney disease; E11.22 Type 2 diabetes mellitus with diabetic chronic kidney disease; N18.9 Chronic kidney disease, unspecified; E11.40 Type 2 diabetes mellitus with diabetic neuropathy, unspecified; G40.909 Epilepsy, unspecified, not intractable, without status epilepticus; F17.210 Nicotine dependence, cigarettes, uncomplicated; E83.51 Hypocalcemia; E78.5 Hyperlipidemia, unspecified; J44.9 Chronic obstructive pulmonary disease, unspecified; E89.0 Postprocedural hypothyroidism; E89.2 Postprocedural hypoparathyroidism; Z79.84 Long term (current) use of oral hypoglycemic drugs

== ENCOUNTER 2017-10-24 01:47 | Emergency (ER) | payer MEDICARE ==
[~2017-10-24] VITALS: Ht 172.7 cm; Wt 81.8 kg
[2017-10-24 02:29] LABS: HEMATOCRIT 28.8 % (37.0-47.0); HEMOGLOBIN 10.2 g/dl (12.0-16.0); IMMATURE GRANULOCYTES 0.3 % (0.0-1.0); MEAN CELL VOLUME 90.3 fL CALC (80.0-100.0); MEAN CORPUSCULAR HGB CONC 35.4 g/L CALC (32.0-36.0); NEUT# 6.4 thou/uL (2.00-7.15); RED BLOOD COUNT 3.19 mill/uL (4.20-5.60); RED CELL DISTRI WIDTH 13.6 % (11.5-15.5)
[2017-10-24 02:47] LABS: ALKALINE PHOSPHATASE 78 u/l (38-126); ANION GAP 17 (6-22 (CALC)); BILIRUBIN, TOTAL 0.2 mg/dL (0.0-1.4); BUN 18 mg/dL (7-17); BUN/CREATININE RATIO 22 (12-20 (CALC)); CARBON DIOXIDE 21 mmol/l (22-30); CHLORIDE 100 mmol/l (95-108); CREATININE 0.8 mg/dL (0.5-1.0); GFR > 60 ML/MIN (>=60 (CALC)); GFR FOR AFR.AMER. > 60 ML/MIN (>=60 (CALC)); POTASSIUM 4.4 mmol/l (3.5-5.1); SGOT/AST 15 u/l (14-36); SGPT/ALT 24 u/l (9-52); SODIUM 134 mmol/l (137-146); TOTAL PROTEIN 5.3 g/dL (6.3-8.2)
[2017-10-24 04:21] LABS: URINE BILIRUBIN - DIPSTICK NEGATIVE (NEGATIVE); URINE BLOOD DIPSTICK NEGATIVE (NEGATIVE); URINE COLOR YELLOW; URINE GLUCOSE - DIPSTICK >=1000 mg/dL (NEGATIVE); URINE KETONE NEGATIVE (NEGATIVE); URINE LEUK ESTERASE NEGATIVE (NEGATIVE); URINE NITRITE - DIPSTICK NEGATIVE (Negative); URINE PH 5.5 (4.5-8.0); URINE PROTEIN - DIPSTICK NEGATIVE (NEG-TRACE); URINE UROBILINOGEN - DIPSTICK 0.2 E.U./dL (0.2)
[2017-10-24 04:35] LABS: URINE CLARITY SL CLOUDY
[2017-10-24 06:14] VITALS: BP 123/58
== END 2017-10-24 06:35 | disposition home or self-care (01) ==
LOC: ED 01:47
PROVIDERS: Emergency Medicine
DX: E83.51 Hypocalcemia (principal); M62.830 Muscle spasm of back; Z91.81 History of falling; I10 Essential (primary) hypertension; F17.210 Nicotine dependence, cigarettes, uncomplicated

== ENCOUNTER 2017-10-24 08:00 | Inpatient (IN) | payer MEDICARE ==
[2017-10-24] VITALS (8 sets, daily range): BP systolic 90–122; BP diastolic 43–68
[~2017-10-24] VITALS: Ht 175.3 cm; Wt 86.2 kg
[2017-10-24 08:29] LABS: HEMATOCRIT 29.8 % (37.0-47.0); HEMOGLOBIN 10.6 g/dl (12.0-16.0); IMMATURE GRANULOCYTES 0.2 % (0.0-1.0); MEAN CELL VOLUME 90.6 fL CALC (80.0-100.0); MEAN CORPUSCULAR HGB 32.2 pG CALC (26.0-32.0); MEAN CORPUSCULAR HGB CONC 35.6 g/L CALC (32.0-36.0); NEUT# 6.08 thou/uL (2.00-7.15); RED BLOOD COUNT 3.29 mill/uL (4.20-5.60); RED CELL DISTRI WIDTH 13.7 % (11.5-15.5)
[2017-10-24 08:42] LABS: ALBUMIN 3.1 g/dL (3.2-5.0); ALKALINE PHOSPHATASE 74 u/l (38-126); ANION GAP 17 (6-22 (CALC)); BILIRUBIN, TOTAL 0.3 mg/dL (0.0-1.4); BUN 18 mg/dL (7-17); BUN/CREATININE RATIO 20 (12-20 (CALC)); CARBON DIOXIDE 24 mmol/l (22-30); CHLORIDE 98 mmol/l (95-108); CREATININE 0.9 mg/dL (0.5-1.0); GFR > 60 ML/MIN (>=60 (CALC)); GFR FOR AFR.AMER. > 60 ML/MIN (>=60 (CALC)); MAGNESIUM 1.7 mg/dL (1.6-2.3); POTASSIUM 4.3 mmol/l (3.5-5.1); SGOT/AST 16 u/l (14-36); SGPT/ALT 23 u/l (9-52); SODIUM 134 mmol/l (137-146); TOTAL PROTEIN 5.5 g/dL (6.3-8.2)
[2017-10-24 09:54] LABS: URINE BILIRUBIN - DIPSTICK NEGATIVE (NEGATIVE); URINE BLOOD DIPSTICK NEGATIVE (NEGATIVE); URINE COLOR YELLOW; URINE GLUCOSE - DIPSTICK 250 mg/dL (NEGATIVE); URINE KETONE NEGATIVE (NEGATIVE); URINE LEUK ESTERASE NEGATIVE (NEGATIVE); URINE NITRITE - DIPSTICK NEGATIVE (Negative); URINE PH 6.5 (4.5-8.0); URINE PROTEIN - DIPSTICK NEGATIVE (NEG-TRACE); URINE UROBILINOGEN - DIPSTICK 0.2 E.U./dL (0.2)
[2017-10-24 10:14] LABS: URINE CLARITY CLEAR
[2017-10-24 17:33] LABS: ANION GAP 14 (6-22 (CALC)); BUN 19 mg/dL (7-17); BUN/CREATININE RATIO 24 (12-20 (CALC)); CARBON DIOXIDE 26 mmol/l (22-30); CHLORIDE 101 mmol/l (95-108); CREATININE 0.8 mg/dL (0.5-1.0); GFR > 60 ML/MIN (>=60 (CALC)); GFR FOR AFR.AMER. > 60 ML/MIN (>=60 (CALC)); POTASSIUM 4.8 mmol/l (3.5-5.1); SODIUM 137 mmol/l (137-146)
[2017-10-25] VITALS (8 sets, daily range): BP systolic 95–123; BP diastolic 40–64
[2017-10-25 06:55] LABS: HEMATOCRIT 29.9 % (37.0-47.0); HEMOGLOBIN 10.4 g/dl (12.0-16.0); IMMATURE GRANULOCYTES 0.3 % (0.0-1.0); MEAN CELL VOLUME 90.3 fL CALC (80.0-100.0); MEAN CORPUSCULAR HGB 31.4 pG CALC (26.0-32.0); MEAN CORPUSCULAR HGB CONC 34.8 g/L CALC (32.0-36.0); NEUT# 4.45 thou/uL (2.00-7.15); RED BLOOD COUNT 3.31 mill/uL (4.20-5.60); RED CELL DISTRI WIDTH 13.6 % (11.5-15.5)
[2017-10-25 07:09] LABS: ALBUMIN 2.7 g/dL (3.2-5.0); ALKALINE PHOSPHATASE 74 u/l (38-126); ANION GAP 16 (6-22 (CALC)); BILIRUBIN, TOTAL 0.2 mg/dL (0.0-1.4); BUN 18 mg/dL (7-17); BUN/CREATININE RATIO 26 (12-20 (CALC)); CARBON DIOXIDE 24 mmol/l (22-30); CHLORIDE 100 mmol/l (95-108); CREATININE 0.7 mg/dL (0.5-1.0); GFR > 60 ML/MIN (>=60 (CALC)); GFR FOR AFR.AMER. > 60 ML/MIN (>=60 (CALC)); SGOT/AST 13 u/l (14-36); SGPT/ALT 22 u/l (9-52); SODIUM 134 mmol/l (137-146); TOTAL PROTEIN 4.8 g/dL (6.3-8.2)
[2017-10-25 07:17] LABS: POTASSIUM 5.5 mmol/l (3.5-5.1)
[2017-10-26 02:00] VITALS: BP 94/40
[2017-10-26 05:01] VITALS: BP 107/56
[2017-10-26 06:06] LABS: HEMATOCRIT 31.5 % (37.0-47.0); HEMOGLOBIN 10.9 g/dl (12.0-16.0); IMMATURE GRANULOCYTES 0.5 % (0.0-1.0); MEAN CORPUSCULAR HGB 31.5 pG CALC (26.0-32.0); MEAN CORPUSCULAR HGB CONC 34.6 g/L CALC (32.0-36.0); NEUT# 4.77 thou/uL (2.00-7.15); RED BLOOD COUNT 3.46 mill/uL (4.20-5.60); RED CELL DISTRI WIDTH 13.4 % (11.5-15.5)
[2017-10-26 06:15] LABS: ALBUMIN 2.9 g/dL (3.2-5.0); ALKALINE PHOSPHATASE 78 u/l (38-126); ANION GAP 15 (6-22 (CALC)); BILIRUBIN, TOTAL 0.2 mg/dL (0.0-1.4); BUN 19 mg/dL (7-17); BUN/CREATININE RATIO 26 (12-20 (CALC)); CARBON DIOXIDE 26 mmol/l (22-30); CHLORIDE 100 mmol/l (95-108); CREATININE 0.7 mg/dL (0.5-1.0); GFR > 60 ML/MIN (>=60 (CALC)); GFR FOR AFR.AMER. > 60 ML/MIN (>=60 (CALC)); POTASSIUM 4.8 mmol/l (3.5-5.1); SGOT/AST 11 u/l (14-36); SGPT/ALT 26 u/l (9-52); SODIUM 137 mmol/l (137-146)
[2017-10-26 08:00] VITALS: BP 117/62
[2017-10-26 10:19] VITALS: BP 119/58
[2017-10-26 15:56] VITALS: BP 109/52
[2017-10-26 19:00] VITALS: BP 113/63
[2017-10-27 05:20] VITALS: BP 115/55
[2017-10-27 05:51] LABS: HEMATOCRIT 33.1 % (37.0-47.0); HEMOGLOBIN 11.5 g/dl (12.0-16.0); IMMATURE GRANULOCYTES 0.4 % (0.0-1.0); MEAN CELL VOLUME 92.5 fL CALC (80.0-100.0); MEAN CORPUSCULAR HGB 32.1 pG CALC (26.0-32.0); MEAN CORPUSCULAR HGB CONC 34.7 g/L CALC (32.0-36.0); NEUT# 4.68 thou/uL (2.00-7.15); RED BLOOD COUNT 3.58 mill/uL (4.20-5.60); RED CELL DISTRI WIDTH 13.2 % (11.5-15.5)
[2017-10-27 06:13] LABS: ALBUMIN 3.1 g/dL (3.2-5.0); ALKALINE PHOSPHATASE 77 u/l (38-126); ANION GAP 14 (6-22 (CALC)); BILIRUBIN, TOTAL 0.2 mg/dL (0.0-1.4); BUN 20 mg/dL (7-17); BUN/CREATININE RATIO 28 (12-20 (CALC)); CARBON DIOXIDE 26 mmol/l (22-30); CHLORIDE 100 mmol/l (95-108); CREATININE 0.7 mg/dL (0.5-1.0); GFR > 60 ML/MIN (>=60 (CALC)); GFR FOR AFR.AMER. > 60 ML/MIN (>=60 (CALC)); POTASSIUM 4.9 mmol/l (3.5-5.1); SGOT/AST 13 u/l (14-36); SGPT/ALT 27 u/l (9-52); SODIUM 136 mmol/l (137-146); TOTAL PROTEIN 5.3 g/dL (6.3-8.2)
[2017-10-27 07:45] VITALS: BP 104/65
[2017-10-27 07:47] VITALS: BP 104/65
[2017-10-27] MEDS ORDERED: LEVOTHYROXIN50 MCG PO (08:11)
[2017-10-27] MEDS ORDERED: LORTAB 7.57.5 MG PO (08:41)
== END 2017-10-27 08:48 | disposition home or self-care (01) | DRG 641 ==
LOC: ED 08:00 → ED-I 08:58 → ED 09:19 → ICU 09:20 → MS2 10-26 09:50
PROVIDERS: Emergency Medicine; ADMIT Internal Medicine Geriatric Medicine; ATTEND Internal Medicine Geriatric Medicine
DX: E83.51 Hypocalcemia (principal); I48.91 Unspecified atrial fibrillation; E11.9 Type 2 diabetes mellitus without complications; G40.909 Epilepsy, unspecified, not intractable, without status epilepticus; E89.0 Postprocedural hypothyroidism; E89.2 Postprocedural hypoparathyroidism; F17.210 Nicotine dependence, cigarettes, uncomplicated; I10 Essential (primary) hypertension; I25.10 Atherosclerotic heart disease of native coronary artery without angina pectoris; J44.9 Chronic obstructive pulmonary disease, unspecified; K21.9 Gastro-esophageal reflux disease without esophagitis; K27.9 Peptic ulcer, site unspecified, unspecified as acute or chronic, without hemorrhage or perforation; F41.9 Anxiety disorder, unspecified; F32.9 Major depressive disorder, single episode, unspecified; M19.90 Unspecified osteoarthritis, unspecified site; M81.0 Age-related osteoporosis without current pathological fracture; M53.3 Sacrococcygeal disorders, not elsewhere classified; W19.XXXA Unspecified fall, initial encounter; F41.1 Generalized anxiety disorder; Y83.8 Other surgical procedures as the cause of abnormal reaction of the patient, or of later complication, without mention of misadventure at the time of the procedure; Z91.14 Patient's other noncompliance with medication regimen
CPT/HCPCS: J2060

== ENCOUNTER 2017-11-19 12:37 | Inpatient (IN) | payer MEDICARE ==
[~2017-11-19] VITALS: Ht 175.3 cm; Wt 77.6 kg
[~2017-11-19 12:37] MED LIST changes: +LEVOTHYROXIN50 MCG PO; +LORTAB 7.57.5 MG PO
--- NOTE | 2017-11-19 12:43 | NUR ---
PT TO ROOM FOR EXAM
--- NOTE | 2017-11-19 12:52 | NUR ---
PT STRAIGHT CATHED FOR URINE SPECIMEN. TOLERATED WELL.
--- NOTE | 2017-11-19 13:09 | NUR ---
PT FREQUENTLY ACCOUNTING ADMINISTRATIVE ASSISTANT LIGHT, MULTIPLE REQUESTS. NO ADDITIONAL NEEDS AT THIS TIME.
[2017-11-19 13:11] LABS: URINE BILIRUBIN - DIPSTICK NEGATIVE (NEGATIVE); URINE BLOOD DIPSTICK NEGATIVE (NEGATIVE); URINE COLOR YELLOW; URINE GLUCOSE - DIPSTICK >=1000 mg/dL (NEGATIVE); URINE KETONE TRACE mg/dL (NEGATIVE); URINE LEUK ESTERASE NEGATIVE (NEGATIVE); URINE NITRITE - DIPSTICK NEGATIVE (Negative); URINE PH 5.5 (4.5-8.0); URINE PROTEIN - DIPSTICK NEGATIVE (NEG-TRACE); URINE SPECIFIC GRAVITY <=1.005; URINE UROBILINOGEN - DIPSTICK 0.2 E.U./dL (0.2)
[2017-11-19 13:12] LABS: HEMATOCRIT 36.9 % (37.0-47.0); IMMATURE GRANULOCYTES 0.3 % (0.0-1.0); MEAN CELL VOLUME 91.8 fL CALC (80.0-100.0); MEAN CORPUSCULAR HGB 32.3 pG CALC (26.0-32.0); MEAN CORPUSCULAR HGB CONC 35.2 g/L CALC (32.0-36.0); NEUT# 6.89 thou/uL (2.00-7.15); RED BLOOD COUNT 4.02 mill/uL (4.20-5.60); RED CELL DISTRI WIDTH 13.4 % (11.5-15.5)
[2017-11-19 13:13] LABS: URINE CLARITY CLEAR
--- NOTE | 2017-11-19 13:15 | NUR ---
WARM BLANKET PROVIDED PER REQUEST.
[2017-11-19 13:27] LABS: ALKALINE PHOSPHATASE 98 u/l (38-126); ANION GAP 17 (6-22 (CALC)); BILIRUBIN, TOTAL 0.3 mg/dL (0.0-1.4); BUN 11 mg/dL (7-17); BUN/CREATININE RATIO 14 (12-20 (CALC)); CARBON DIOXIDE 24 mmol/l (22-30); CHLORIDE 95 mmol/l (95-108); CREATININE 0.8 mg/dL (0.5-1.0); GFR > 60 ML/MIN (>=60 (CALC)); GFR FOR AFR.AMER. > 60 ML/MIN (>=60 (CALC)); POTASSIUM 4.2 mmol/l (3.5-5.1); SGOT/AST 11 u/l (14-36); SGPT/ALT 28 u/l (9-52); SODIUM 131 mmol/l (137-146); TOTAL PROTEIN 6.2 g/dL (6.3-8.2)
[2017-11-19 13:33] LABS: ALBUMIN 3.8 g/dL (3.2-5.0)
--- NOTE | 2017-11-19 13:48 | NUR ---
PT GIVEN WATER, PER PTS REQUEST. 2 VISITORS BREIFLY AT BEDSIDE.
[2017-11-19] MEDS ORDERED: TUMS ULTRA 101000 MG PO (14:35)
--- NOTE | 2017-11-19 14:39 | NUR ---
PT FREQUENTLY WIDE AREA NETWORK ADMINISTRATOR LIGHT, MULTIPLE REQUESTS. NO ADDITIONAL NEEDS AT THIS TIME.
--- NOTE | 2017-11-19 14:48 | NUR ---
Admission Note Report Given to: [facility] Transported by: X Wheelchair Stretcher Transported with: X Nurse Transporter Patent IV O2 X Crown Presser
[2017-11-19 15:15] VITALS: BP 111/72
--- NOTE | 2017-11-19 15:15 | NUR ---
PT CAME VIA STRETCHER BY JESUS. PT AMBULATED TO SCALE AND BED WITH STAND BY ASSIST. TAX COMPLIANCE AGENT IN ROOM.
--- NOTE | 2017-11-19 15:20 | NUR ---
PT TRANSPORTED TO [facility] 272 IN STABLE CONDITION BY STRETCHER WITH TELE. RECVING RN @ BEDSIDE.
--- NOTE | 2017-11-19 16:00 | NUR ---
ASSESSMENT DONE AND TELE IN PLACE. RESPS EVEN AND UNLABORED. LUNGS SOUND DIMINISHED/CLEAR. #20 RFA THAT APPEARS HEALTHY. RIGHT PARTIAL FOOT AMPUTATION. PT DENIES PAIN AT THIS TIME. ORIENTED TO CALL LIGHT AND SAFETY PRECAUTIONS REINFORCED.
--- NOTE | 2017-11-19 17:26 | NUR ---
DR. VELIZ AT BEDSIDE TO ASSESS PT.
--- NOTE | 2017-11-19 19:00 | NUR ---
PT REFUSES TO HAVE THE UPPER SIDE BED RAILS PADDED FOR HX OF SEIZURES, ONLY ALLOWED ME TO PAD THE RIGHT SIDE RAIL. STATES "I DON'T NEED THIS JUST GIVE MY KEPPRA PILL AND I'LL BE FINE." NO ORDERS FOR KEPPRA, WILL NOTIFY DR. VELIZ.
[2017-11-19 20:00] VITALS: BP 113/72
[2017-11-19 20:42] LABS: HEMATOCRIT 35.4 % (37.0-47.0); HEMOGLOBIN 12.4 g/dl (12.0-16.0); IMMATURE GRANULOCYTES 0.4 % (0.0-1.0); MEAN CELL VOLUME 91.7 fL CALC (80.0-100.0); MEAN CORPUSCULAR HGB 32.1 pG CALC (26.0-32.0); NEUT# 6.2 thou/uL (2.00-7.15); RED BLOOD COUNT 3.86 mill/uL (4.20-5.60); RED CELL DISTRI WIDTH 13.5 % (11.5-15.5)
--- NOTE | 2017-11-19 20:48 | NUR ---
PT REFUSED LISINOPRIL PILL STATES "I TOOK IT THIS MORNING, AND I DON'T TAKE IT TWICE." PT ASKING FOR HER LEVETIRACETAM PILL STATES "I TAKE IT TWICE IN THE MORINING AND IN THE EVENING AND IF I DON'T TAKE IT I GET SEIZURES." "WHEN I HAVE SEIZURES I ONLY YIELD VERY LOUD, I DON'T SHAKE." DENIES ANY PAIN AT THIS TIME, WILL CONTINUE TO MONITOR, NO DISTRESS NOTED RESP ARE EVEN AND UNLABORED, AT 1999 ACCU CHECK 177 AND VSS. ENCOURAGED TO CALL IF NEEDED, CALL YANG AND NEEDED SUPPLIES WITHIN REACH. PT EATING A SNACK AT THIS TIME.
[2017-11-19 21:34] LABS: ALBUMIN 3.5 g/dL (3.2-5.0); ALKALINE PHOSPHATASE 81 u/l (38-126); ANION GAP 16 (6-22 (CALC)); BILIRUBIN, TOTAL 0.3 mg/dL (0.0-1.4); BUN 13 mg/dL (7-17); BUN/CREATININE RATIO 14 (12-20 (CALC)); CARBON DIOXIDE 25 mmol/l (22-30); CHLORIDE 99 mmol/l (95-108); CREATININE 0.9 mg/dL (0.5-1.0); GFR > 60 ML/MIN (>=60 (CALC)); GFR FOR AFR.AMER. > 60 ML/MIN (>=60 (CALC)); MAGNESIUM 1.4 mg/dL (1.6-2.3); POTASSIUM 4.3 mmol/l (3.5-5.1); SGOT/AST 13 u/l (14-36); SGPT/ALT 17 u/l (9-52); SODIUM 135 mmol/l (137-146); TOTAL PROTEIN 6.1 g/dL (6.3-8.2)
[2017-11-19 22:04] LABS: TSH, 3RD GENERATION 0.75 uIU/mL (0.47 - 4.68)
--- NOTE | 2017-11-19 22:10 | NUR ---
ASSISTED PT TO BSC, VOIDED 300CC OF CLEAR YELLOW URINE, C/O ACHING LOWER BACK PAIN, MEDICATED WITH LORTAB, NO DISTRESS NOTED, WILL CONTINUE TO REASSESS.
[2017-11-20 00:39] VITALS: BP 95/60
--- NOTE | 2017-11-20 01:25 | NUR ---
pt resting in bed with eyes closed, no distress noted, voices no complaints, call dial at reach, ivf infusing per orders, iv site remains free of s/s of infiltration, will monitor closely.
[2017-11-20 04:00] VITALS: BP 100/52
--- NOTE | 2017-11-20 04:15 | NUR ---
PT RESTING IN BED, AWAKE, ASSISTED TO BSC, VOIDED 300CC CLEAR YELLOW URINE, SMALL BM NOTED, REQUESTING HER MEDS AT THIS TIME, STATES "AT HOME, AT THIS TIME I WOULD BE DRINKING COFFEE AND TAKING ALL MY MEDICATIONS." EDUCATED ABOUT MED SCHEDULE, PT IS A&OX3, NS INFUSING AT 100ML/HR WITHOUT DIFFICULTY TO PATENT IV SITE, RESP ARE EVEN AND UNLABORED ON ROOM AIR, VSS, AFEBRILE, PT APPEARS TO BE HUNGRY, REQUESTING COFFEE, CRACKERS, AND MILK. PROVIDED WITH A PLAIN BLACK DECAF COFFEE AND X2 CRACKERS. DENIES PAIN OR SOB, WILL CONTINUE TO MONITOR.
[2017-11-20 04:42] LABS: HEMATOCRIT 35.2 % (37.0-47.0); HEMOGLOBIN 12.4 g/dl (12.0-16.0); IMMATURE GRANULOCYTES 0.4 % (0.0-1.0); MEAN CELL VOLUME 91.7 fL CALC (80.0-100.0); MEAN CORPUSCULAR HGB 32.3 pG CALC (26.0-32.0); MEAN CORPUSCULAR HGB CONC 35.2 g/L CALC (32.0-36.0); NEUT# 4.77 thou/uL (2.00-7.15); RED BLOOD COUNT 3.84 mill/uL (4.20-5.60); RED CELL DISTRI WIDTH 13.4 % (11.5-15.5)
[2017-11-20 04:43] LABS: ALBUMIN 3.3 g/dL (3.2-5.0); ALKALINE PHOSPHATASE 83 u/l (38-126); ANION GAP 14 (6-22 (CALC)); BILIRUBIN, TOTAL 0.4 mg/dL (0.0-1.4); BUN 13 mg/dL (7-17); BUN/CREATININE RATIO 17 (12-20 (CALC)); CARBON DIOXIDE 25 mmol/l (22-30); CHLORIDE 101 mmol/l (95-108); CREATININE 0.7 mg/dL (0.5-1.0); GFR > 60 ML/MIN (>=60 (CALC)); GFR FOR AFR.AMER. > 60 ML/MIN (>=60 (CALC)); MAGNESIUM 1.4 mg/dL (1.6-2.3); POTASSIUM 4.3 mmol/l (3.5-5.1); SGOT/AST 11 u/l (14-36); SGPT/ALT 22 u/l (9-52); SODIUM 135 mmol/l (137-146); TOTAL PROTEIN 5.7 g/dL (6.3-8.2)
--- NOTE | 2017-11-20 05:33 | NUR ---
PT IS HAVING FREQUENT EPISODES OF DRY KILN MAINTENANCE COUGH.
--- NOTE | 2017-11-20 06:39 | NUR ---
NOTIFIED DR. VELIZ OF LAB RESULTS AND ACCU CHECK FINGERSTICK 341; ORDER TO ADMINISTER 5 UNITS OF REGULAR INSULIN X1 DOSE NOW. ORDER FAXED TO .
--- NOTE | 2017-11-20 07:05 | NUR ---
RECEIVED REPORT FROM OFF GOING NURSE, TREY. PT RESTING QUIETLY IN BED. NO RESP. DISTRESS NOTED. NO COMPLAINTS VOICED. NO RESP. DISTRESS NOTED. CALL LIGHT WITHIN REACH.
[2017-11-20 11:17] VITALS: BP 113/65
--- NOTE | 2017-11-20 11:57 | NUR ---
PT CONTINUES TO REST QUIETLY IN BED. NO RESP. DISTRES NOTED. NO CHANGE IN ASSESSMENT. PT ASSISTED X 2 TO BSC COMMODE, STEADY GAIT. NO RESP. DISTRESS NOTED WITH TRANSFER. IV FLUIDS CONTINUE TO INFUSE WITHOUT DIFFICULTY. CALL LIGHT WITHIN REACH. WILL CONTINUE TO MONITOR.
[2017-11-20 15:16] VITALS: BP 99/54
--- NOTE | 2017-11-20 16:00 | NUR ---
PT CONTINUES TO REST QUIETLY IN BED. NO RESP. DISTRESS NOTED. NO CHANGE IN ASSESMENT. CALL LIGHT WITHIN REACH.
--- NOTE | 2017-11-20 19:40 | NUR ---
REPORT RECEIVED FROM LEELA PATTON;PT RESTING AT BEDSIDE;INTRODUCED SELF TO PT AND POC DISCUSSED;SEIZURE PRECAUTIONS IN PLACE;PT ENCOURAGED TO EXPRESS CONCERNS;BED IN THE LOWEST POSITION WITH CALL LIGHT WITHIN REACH;WILL CONTINUE TO MONITOR
[2017-11-20 20:38] VITALS: BP 132/70
--- NOTE | 2017-11-20 21:20 | NUR ---
PT AMBULATED TO BEDSIDE COMMODE WITH WEAK GAIT AND 1 PERSON ASSIST;VOIDED 300CC OF YELLOW/CLOUDY URINE;RE-POSITIONED BACK INTO BED;A&O X3;ASSESSMENT COMPLETED;RESPIRATIONS EVEN AND UNLABORED ON RA,CLEAR LUNG SOUNDS;ABDOMEN SOFT ON PALPATIONS WITH X4 ACTIVE BOWEL SOUNDS;EVENING SNACK PROVIDED WITH INSULIN FOR A BS OF 229;STRONG PEDAL PULSE TO LEFT FOOT,PARTIAL FOOT AMPUTATION NOTED TO RIGHT;TELE MONITOR IN PLACE;#20G TO RIGHT FOREARM INFUSING NS @ 20ML/HR,SITE APPEARS HEALTHY;ABSCESS NOTED TO LEFT UNDERARM,RED AND WARM TO TOUCH;WARM COMPRESSIONS EDUCATED;PT DENIES ANY OTHER NEEDS;SAFETY PRECAUTIONS REINFORCED;CALL LIGHT WITHIN REACH;WILL CONTINUE TO MONITOR
[2017-11-20 23:28] VITALS: BP 115/71
--- NOTE | 2017-11-21 00:30 | NUR ---
PT APPEARS TO BE SLEEPING IN SUPINE POSITION;NO S/S OF DISTRESS NOTED;RESPIRATIONS EVEN AND UNLABORED ON RA;TELE MONITOR IN PLACE;FALL PRECAUTIONS IN PLACE WITH COMMODE AT BEDSIDE;WILL CONTINUE TO MONITOR
--- NOTE | 2017-11-21 01:55 | NUR ---
PT COMPLAINS OF LOWER BACK ACHING RATING 8/10 ON THE PAIN SCALE AND REQUEST PAIN MEDICATION;PT MEDICATED WITH LORTAB 7.5MG PO AT THIS TIME;WILL MONITOR FOR EFFECTIVENESS
[2017-11-21 04:40] VITALS: BP 103/67
--- NOTE | 2017-11-21 04:50 | NUR ---
PT RESTING IN BED WATCHING TV;IV SITE PATENT RUNNING AT 20ML/HR;TELE MONITOR IN PLACE;RESPIRATIONS EVEN AND UNLABORED ON RA;FALL PRECAUTIONS IN PLACE WITH CALL LIGHT IN REACH;WILL CONTINUE TO MONITOR
[2017-11-21 06:02] LABS: IMMATURE GRANULOCYTES 0.4 % (0.0-1.0); MEAN CELL VOLUME 92.3 fL CALC (80.0-100.0); MEAN CORPUSCULAR HGB CONC 34.7 g/L CALC (32.0-36.0); NEUT# 8.51 thou/uL (2.00-7.15); RED BLOOD COUNT 4.53 mill/uL (4.20-5.60); RED CELL DISTRI WIDTH 13.2 % (11.5-15.5)
[2017-11-21 06:23] LABS: ALBUMIN 3.5 g/dL (3.2-5.0); ALKALINE PHOSPHATASE 91 u/l (38-126); ANION GAP 16 (6-22 (CALC)); BILIRUBIN, TOTAL 0.4 mg/dL (0.0-1.4); BUN 13 mg/dL (7-17); BUN/CREATININE RATIO 20 (12-20 (CALC)); CARBON DIOXIDE 23 mmol/l (22-30); CHLORIDE 102 mmol/l (95-108); CREATININE 0.6 mg/dL (0.5-1.0); GFR > 60 ML/MIN (>=60 (CALC)); GFR FOR AFR.AMER. > 60 ML/MIN (>=60 (CALC)); MAGNESIUM 1.4 mg/dL (1.6-2.3); POTASSIUM 4.4 mmol/l (3.5-5.1); SGOT/AST 11 u/l (14-36); SGPT/ALT 23 u/l (9-52); SODIUM 136 mmol/l (137-146)
[2017-11-21 06:32] LABS: HEMATOCRIT 41.8 % (37.0-47.0); HEMOGLOBIN 14.5 g/dl (12.0-16.0)
--- NOTE | 2017-11-21 07:44 | NUR ---
ASSESSMENT IS COMPLETED: PT C/O LOWER ABD HURTING, ALSO HAVING LOOSE STOOLS. IV SITE IS FREE FROM REDNESS OR EDEMA. BREATH SOUNDS ARE CLEAR,BILATERALLY, NO C/O SOB,HR IS REG, PULSES ARE STRONG X4. CONTINUE TO OBSERVE AN MONITOR.
[2017-11-21 07:45] VITALS: BP 90/61
[2017-11-21 09:44] LABS: C. DIFFICILE TOXIN A&B NEGATIVE (NEGATIVE)
--- NOTE | 2017-11-21 11:25 | NUR ---
WHILE PT SITTING ON THE BSC, SHE APPEARED TO BE HAVING A SMALL SEIZURE, FOR 2 SECONDS, THEN CAME BACK , HAD LARGE EYES, ATTEMPTING TO RECHECK BP DUE TO BEING LOW. LEFT ARM NOT READING WELL. AND THE R ARM USING A MANUAL BP CUFF BY Wade FOURNIER RN. IS NOW 102/70. PT IS BACK IN BED C/O NAUSEA AND VOMITING 25CC OF CLEAR LIQUID, ALSO DIAPHORETIC. CONTINUE TO RECHECK ON PT.
--- NOTE | 2017-11-21 12:00 | NUR ---
PT IS RESTING IN BED WITH NO DISTRESS NOTED. WAITING TO HAVE A CT SCAN. BEING TRANSPORTED VIA ACCOMPANIED BY STAFF
--- NOTE | 2017-11-21 12:36 | NUR ---
PT TRANSPORTED TO HAVE A CT SCAN COMPLETED: IV SITE ABLE TO BE FLUSHED,
[2017-11-21 15:20] VITALS: BP 120/77
--- NOTE | 2017-11-21 16:05 | NUR ---
PT IS RESTING WITH EYES CLOSED. IV SITE IS FREE FROM REDNESS OR EDEMA. CONTINUE TO OSBERVE AND MONITOR,
[2017-11-21 16:26] LABS: IMMATURE GRANULOCYTES 0.8 % (0.0-1.0); MEAN CELL VOLUME 93.6 fL CALC (80.0-100.0); MEAN CORPUSCULAR HGB CONC 34.3 g/L CALC (32.0-36.0); NEUT# 14.14 thou/uL (2.00-7.15); RED BLOOD COUNT 5.43 mill/uL (4.20-5.60); RED CELL DISTRI WIDTH 13.5 % (11.5-15.5)
[2017-11-21 16:29] LABS: HEMATOCRIT 50.8 % (37.0-47.0); HEMOGLOBIN 17.4 g/dl (12.0-16.0)
[2017-11-21 16:31] LABS: CREATININE 1.3 mg/dL (0.5-1.0)
--- NOTE | 2017-11-21 19:45 | NUR ---
REPORT RECEIVED FROM DAY NURSE, PT.IS IN BED W/BACK TO DOOR APPEARS TO BE SLEEPING AT THIS TIME. CALL LIGHT IS AT SIDE.
[2017-11-21 20:45] VITALS: BP 98/73
--- NOTE | 2017-11-21 21:24 | NUR ---
PT.MEDICATED ORDERS PROVIDE. PT.ASSISTED TO BSC AND BACK TO BED. 1 MODERATE BROWN LOOSE STOOL EMPTIED AT THIS TIME. PT.DENIES ANY OTHER NEEDS AT THIS TIME. CALL LIGHT IS W/IN REACH AND PT.ENCOURAGED TO CALL IF ANY NEEDS ARISE.
[2017-11-22 00:10] VITALS: BP 104/65
--- NOTE | 2017-11-22 02:35 | NUR ---
PT.IN BED SLEEPING AT THIS TIME WITH LIGHTS ON AND DOOR OPEN REQUESTED. CALL LIGHT AT SIDE W/IN REACH
[2017-11-22 04:13] VITALS: BP 114/65
--- NOTE | 2017-11-22 04:13 | NUR ---
PT.V/S ASSESSED, PT.DENIES ANY OTHER NEEDS AT THIS TIME. PT.HAS BEEN NPO SINCE MIDNIGHT. DENIES ANY OTHER NEEDS AT THIS TIME. CALL LIGHT IS W/IN REACH
[2017-11-22 05:32] LABS: IMMATURE GRANULOCYTES 0.5 % (0.0-1.0); MEAN CORPUSCULAR HGB 32.4 pG CALC (26.0-32.0); MEAN CORPUSCULAR HGB CONC 35.2 g/L CALC (32.0-36.0); NEUT# 8.59 thou/uL (2.00-7.15); RED BLOOD COUNT 4.48 mill/uL (4.20-5.60); RED CELL DISTRI WIDTH 13.2 % (11.5-15.5)
[2017-11-22 05:48] LABS: ALBUMIN 3.4 g/dL (3.2-5.0); ALKALINE PHOSPHATASE 84 u/l (38-126); ANION GAP 18 (6-22 (CALC)); BILIRUBIN, TOTAL 0.4 mg/dL (0.0-1.4); BUN 23 mg/dL (7-17); BUN/CREATININE RATIO 23 (12-20 (CALC)); CARBON DIOXIDE 19 mmol/l (22-30); CHLORIDE 103 mmol/l (95-108); GFR 57 ML/MIN (>=60 (CALC)); GFR FOR AFR.AMER. > 60 ML/MIN (>=60 (CALC)); POTASSIUM 4.8 mmol/l (3.5-5.1); SGOT/AST 11 u/l (14-36); SGPT/ALT 18 u/l (9-52); SODIUM 135 mmol/l (137-146); TOTAL PROTEIN 5.9 g/dL (6.3-8.2)
[2017-11-22 05:53] LABS: MAGNESIUM 2.1 mg/dL (1.6-2.3)
[2017-11-22 06:15] LABS: HEMATOCRIT 41.2 % (37.0-47.0); HEMOGLOBIN 14.5 g/dl (12.0-16.0)
[2017-11-22 07:50] VITALS: BP 106/51
--- NOTE | 2017-11-22 07:50 | NUR ---
ASSESSMENT IS CONPLETED: PT HAS A DESIRE TO GO HOME. WAITING FOR THE DR TO COME AND COMPLETE THE I&D ON LEFT AXILLA. IV SITE IS FREE FROM REDNESS OR EDEMA. HR IS REG,PULSES ARE STRONG X4,ABD IS SOFT WITH ACTIVE BS. TELE MONITOR IN PLACE.
--- NOTE | 2017-11-22 10:10 | NUR ---
CALLED RE: PT IF I&D WAS GOING TO BE PERFORMED IN OPERATING ROOM OR IN PT'S ROOM. WAS INFORMED THAT HE WILL DO THE PROCEDURE AT BEDSIDE., AND WOULD BE HERE IN ABOUT 20 MINUTES. INFORMED PT AT [address] FONSECA WOULD BE HERE IN ABOUT 20MIN, VERBALIZED UNDERSTANDING
--- NOTE | 2017-11-22 10:44 | NUR ---
IN TO VISIT WITH PT. PREPARED PT FOR THE I&D AND CLEANED AREA WITH BETADINE, PT HAD SIGNED CONSENT AT 1020. NUMBED AREA WITH LIDOCAINE. PT TOLERATED WELL. CUT A SMALL SLIT IN LEFT AXILLA WITH BLADE. THEN SQUEEZED THE INFECTION OUT OF AREA. ALL USING STERILE TECHNIQUE. PLACED 2 4X4 FOLDED AND TAPED DOWN ON AREA, PT TOLERATED WELL, CONTINUE TO OSBERVE AND MONITOR.
[2017-11-22 11:07] VITALS: BP 121/65
--- NOTE | 2017-11-22 12:00 | NUR ---
PT IS RELAXING IN BED WITH NO DISTRESS NOTED. IV SITE IS FREE FROM REDNESS OR EDEMA. CONTINUE TO OBSERVE AND MONITOR,
[2017-11-22 15:12] VITALS: BP 115/66
--- NOTE | 2017-11-22 16:30 | NUR ---
PT IS RELAXING IN BED WITH MINIMAL AMOUNT OF PAIN VOICED. IV SITE IS FREE FROM REDNESS OR EDEMA.
--- NOTE | 2017-11-22 18:34 | NUR ---
PT HAD A LARGE LOOSE CHERELLE BM WITH PILLS IN IT. PT WANTING TO GO HOME TOMORROW.
--- NOTE | 2017-11-22 19:05 | NUR ---
REPORT RECEIVED FROM KRISTINA WINSLOW;PT RESTING IN SUPINE POSITION WITH EYES CLOSED;NO S/S OF DISTRESS NOTED;RESPIRATIONS EVEN AND UNLABORED;IV SITE APPEARS PATENT;FALL PRECAUTIONS IN PLACE,WILL CONTINUE TO MONITOR
[2017-11-22 20:00] VITALS: BP 96/49
--- NOTE | 2017-11-22 21:15 | NUR ---
ACCUCHECK OF 57 OBTAINED BY NATALY WALLACE;PT ASYMPTOMATIC;KRISTEN CRACKERS,ORANGE JUICE AND PUDDING PROVIDED;WILL CONTINUE TO MONITOR
--- NOTE | 2017-11-22 22:00 | NUR ---
PT RESTING IN BED WATCHING TV;A&O X3;ASSESSMENT COMPLETED;RESPIRATIONS EVEN AND UNLABORED ON RA,CLEAR LUNG SOUNDS NOTED;ABDOMEN SOFT WITH 4 ACTIVE BOWEL SOUNDS;STRONG PEDAL PULSE NOTED TO LEFT FOOT;PARTIAL AMPUTATION NOTED TO RIGHT FOOT;SURGICAL SITE TO LEFT AXILLA REMAINS CDI;PT DENIES ANY PAIN OR DISCOMFORTS;TELE MONITOR IN PLACE;#20G TO LEFT FOREARM INFUSING NS @ 20ML/HR,SITE APPEARS HEALTHY;SEIZURE PRECAUTIONS IN PLACE;PT DENIES ANY CURRENT NEEDS;ENCOURAGED TO CALL FOR ASSISTANCE IF NEEDED;FALL PRECAUTIONS;WILL CONTINUE TO MONITOR
--- NOTE | 2017-11-22 23:22 | NUR ---
BLOOD SUGAR RE-CHECK 182
--- NOTE | 2017-11-23 00:20 | NUR ---
PT APPEARS TO BE SLEEPING IN SUPINE POSITION;NO S/S OF DISTRESS NOTED;RESPIRATIONS EVEN AND UNLABORED ON RA;IV SITE PATENT;TELE MONITOR IN PLACE;CALL LIGHT WITHIN REACH;WILL CONTINUE TO MONITOR
[2017-11-23 00:21] VITALS: BP 104/55
[2017-11-23 03:22] VITALS: BP 98/56
--- NOTE | 2017-11-23 03:27 | NUR ---
PT RESTING IN BED WATCHING TV;PT DENIES ANY PAIN OR DISCOMFORTS;RESPIRATIONS EVEN AND UNLABORED ON RA;TELE MONITOR IN PLACE;IV SITE PATENT;FRESH COFFEE PROVIDED PER REQUEST;CALL LIGHT IN REACH;WILL CONTINUE TO MONITOR
--- NOTE | 2017-11-23 07:00 | NUR ---
SHIFT CHANGE REPORT FROM DL, PT AWAKE ALERT AND ORIENTED, STATES SHE FEELS MUCH BETTER AND WANTS TO GO HOME TODAY, ADVISED WILL DISCUSS WITH MD LATER. DR VELIZ ARRIVED AND ROUNDED, PT INFORMED HIM FIRMLY SHE WANTS TO GO HOME TODAY, WILL CONTINUE TO MONITOR, CALL YANG IN REACH.
[2017-11-23 07:55] VITALS: BP 124/74
[2017-11-23] MEDS ORDERED: CLINDAMYCIN300 M1 PO (08:11)
[2017-11-23] MEDS ORDERED: LEVEMIR100 UNIT/M SC (08:12)
[2017-11-23 09:26] VITALS: BP 124/74
--- NOTE | 2017-11-23 09:34 | NUR ---
Discharge instructions given. Patient verbalizes understanding of same. Discharged in good condition via Ambulatory to Home with family. All belongings sent with pt.
--- NOTE | 2017-11-23 11:03 | NUR ---
PT ANXIOUS TO LEAVE AND SHOUTING IN ROOM "I WANT TO GO HOME NOW", REFUSED SOME MEDICATIONS STATING SHE WILL TAKE THEM AT HOME AND SHE JUST WANTS TO GO NOW, SHE WAS RELEASED AND SENT HOME AFTER D/C ORDERS WRITTEN.
== END 2017-11-23 09:34 | disposition home or self-care (01) | DRG 638 ==
LOC: ED 12:37 → ED-I 14:29 → ED 14:46 → MS2 14:47
PROVIDERS: Emergency Medicine; ADMIT Internal Medicine Geriatric Medicine; ATTEND Internal Medicine Geriatric Medicine
PROC: 0X950ZZ Drainage of Left Axilla, Open Approach (ICD-10-PCS; principal; 2017-11-22)
DX: E11.65 Type 2 diabetes mellitus with hyperglycemia (principal); L02.412 Cutaneous abscess of left axilla; E83.42 Hypomagnesemia; E11.40 Type 2 diabetes mellitus with diabetic neuropathy, unspecified; E83.51 Hypocalcemia; G40.909 Epilepsy, unspecified, not intractable, without status epilepticus; I48.91 Unspecified atrial fibrillation; E89.0 Postprocedural hypothyroidism; I10 Essential (primary) hypertension; F17.210 Nicotine dependence, cigarettes, uncomplicated; E89.2 Postprocedural hypoparathyroidism; F32.9 Major depressive disorder, single episode, unspecified; I25.10 Atherosclerotic heart disease of native coronary artery without angina pectoris; J44.9 Chronic obstructive pulmonary disease, unspecified; K21.9 Gastro-esophageal reflux disease without esophagitis; F41.9 Anxiety disorder, unspecified; K27.9 Peptic ulcer, site unspecified, unspecified as acute or chronic, without hemorrhage or perforation; M19.90 Unspecified osteoarthritis, unspecified site; M81.0 Age-related osteoporosis without current pathological fracture; K52.9 Noninfective gastroenteritis and colitis, unspecified; Z91.11 Patient's noncompliance with dietary regimen; Z91.14 Patient's other noncompliance with medication regimen; Z79.84 Long term (current) use of oral hypoglycemic drugs; Z89.421 Acquired absence of other right toe(s)
CPT/HCPCS: G0378; Q9967

== ENCOUNTER 2018-02-21 15:52 | Inpatient (IN) | payer MEDICARE ==
[~2018-02-21] VITALS: Ht 175.3 cm; Wt 74.0 kg
[~2018-02-21 15:52] MED LIST changes: +CLINDAMYCIN300 M1 PO; +LEVEMIR100 UNIT/M SC; +TUMS ULTRA 101000 MG PO
--- NOTE | 2018-02-21 16:23 | NUR ---
PT TO ROOM 15 VIA WHEELCHAIR.
--- NOTE | 2018-02-21 17:54 | NUR ---
PT STATES SHE IS FEELING BETTER SINCE SITTING IN AIR CONDITIONED WAITING ROOM, SHE STATES SHE WALKED OUT OF A ROUTINE VISIT AT DR. JOY AND BECAME LIGHTHEADED/DIZZY/HEADACHE. PT STATES SHE HAS BEEN VERY STRESSED LATELY WITH PEOPLE THAT ARE LIVING WITH HER. PT ALERT/ORIENTED X3, VITAL SIGNS STABLE. ADVISED OF BUSY ER STATUS AND THAT WOULD BE WITH HER SOON POSSIBLE
[2018-02-21] MEDS ORDERED: KEFLEX500 M1 PO (17:55)
[2018-02-21 18:01] LABS: HEMATOCRIT 49.9 % (37.0-47.0); HEMOGLOBIN 16.9 g/dl (12.0-16.0); IMMATURE GRANULOCYTES 0.5 % (0.0-1.0); MEAN CELL VOLUME 90.7 fL CALC (80.0-100.0); MEAN CORPUSCULAR HGB 30.7 pG CALC (26.0-32.0); MEAN CORPUSCULAR HGB CONC 33.9 g/L CALC (32.0-36.0); NEUT# 14.31 thou/uL (2.00-7.15); RED BLOOD COUNT 5.5 mill/uL (4.20-5.60); RED CELL DISTRI WIDTH 12.7 % (11.5-15.5)
[2018-02-21 18:07] LABS: URINE BLOOD DIPSTICK NEGATIVE (NEGATIVE); URINE COLOR YELLOW; URINE GLUCOSE - DIPSTICK 100 mg/dL (NEGATIVE); URINE KETONE 15 mg/dL (NEGATIVE); URINE NITRITE - DIPSTICK NEGATIVE (Negative); URINE PROTEIN - DIPSTICK 30 mg/dL (NEG-TRACE); URINE SPECIFIC GRAVITY >=1.030
[2018-02-21 18:09] LABS: URINE BILIRUBIN - DIPSTICK NEGATIVE (NEGATIVE); URINE CLARITY SL CLOUDY; URINE LEUK ESTERASE SMALL (NEGATIVE)
[2018-02-21 18:10] LABS: URINE MUCUS FEW hpf (NONE-FEW); URINE SQUAMOUS EPITHELIAL CELL MANY EPI/hpf (0-FEW)
[2018-02-21 18:15] LABS: ALBUMIN 3.9 g/dL (3.2-5.0); ALKALINE PHOSPHATASE 62 u/l (38-126); BILIRUBIN, TOTAL 0.5 mg/dL (0.0-1.4); BUN 20 mg/dL (7-17); BUN/CREATININE RATIO 21 (12-20 (CALC)); CHLORIDE 100 mmol/l (95-108); CREATININE 0.9 mg/dL (0.5-1.0); GFR > 60 ML/MIN (>=60 (CALC)); GFR FOR AFR.AMER. > 60 ML/MIN (>=60 (CALC)); POTASSIUM 4.4 mmol/l (3.5-5.1); SGOT/AST 21 u/l (14-36); SGPT/ALT 23 u/l (9-52); TOTAL PROTEIN 7.3 g/dL (6.3-8.2)
[2018-02-21 18:16] LABS: ANION GAP 16 (6-22 (CALC)); SODIUM 131 mmol/l (137-146)
[2018-02-21 18:17] LABS: CARBON DIOXIDE 19 mmol/l (22-30)
[2018-02-21 18:26] LABS: MYOGLOBIN 37 ng/mL (0 - 62)
--- NOTE | 2018-02-21 18:45 | NUR ---
REPORT GIVEN TO LEELA LEE.
--- NOTE | 2018-02-21 18:47 | NUR ---
PT TRANSFERED TO ER ROOM 12. REPORT RECVD FROM KRISTINA SULTANA.
[2018-02-21] MEDS ORDERED: LEVOTHYROXIN200 MC2 PO (18:56)
--- NOTE | 2018-02-21 19:02 | NUR ---
PT LAYING IN BED, YELLING ON THE PHONE. IVF RUNNING.
--- NOTE | 2018-02-21 19:42 | NUR ---
PT GIVEN KRISTEN CRACKERS AND DIET GINGERALE
--- NOTE | 2018-02-21 19:50 | NUR ---
IV ROCEPHIN INITIATED TO RFA. INFUSING WITHOUT DIFFCIULTY. SITE FREE FROM REDNESS/SWELLING/WARMTH. NORMAL SALINE CONTINUES TO INFUSE TO RFA. VERBALIZES NO NEEDS AT THIS TIME.
--- NOTE | 2018-02-21 20:13 | NUR ---
ATTEMPTED TO CALL REPORT, NURSE BUSY AT MOMENT.
--- NOTE | 2018-02-21 20:35 | NUR ---
ATTEMPTED TO CALL REPORT NURSE BUSY.
--- NOTE | 2018-02-21 20:45 | NUR ---
RECVING LEELA MENDIETA.
[2018-02-21 21:00] VITALS: BP 104/66
--- NOTE | 2018-02-21 21:00 | NUR ---
RECEIVED FROM ER VIA STRETCHER ACCOMPANIED BY STAFF, AMBULATING TO STANDING SCALE THEN TO BED WITH MINIMAL ASSISTANCE, USES CANE AT HOME. HISTORY OF PARTIAL FOOT AMPUTATIONS TO RLE. ACCUCHECK 225 PRIOR TO ARRIVING TO THE [facility]. A/O X3, RESPIRATIONS EVEN AND UNLABORED. NS INFUSING TO RFA AT 15CC/HR. PT VOICES CONCERNS REGARDING TAKING HOME MEDS. THIS WRITTER CALLED DR. VELIZ AND STATES WILL ADRESS HOME MEDS.
--- NOTE | 2018-02-21 21:05 | NUR ---
REPORT GIVEN TO KRISTINA LGUO.
--- NOTE | 2018-02-21 21:10 | NUR ---
Admission Note Report Given to: KRISTINA LUGO Transported by: Wheelchair X Stretcher Transported with: X Nurse Transporter X Patent IV O2 Knowledge Management Consultant PT TRANSPORTED TO [facility] IN STABLE CONDITION VIA STRETCHER WITH IVF.
--- NOTE | 2018-02-21 23:43 | NUR ---
POTASSIUM AND CALCIUM PO ADMINISTERED PER NOV, LISINOPRIL HELD DUE TO B/P 111/58, HR 70. PT ASKING IF SEIZURE AND THYROID MEDICATION ORDERED FOT THE MORNING. NO SEIZURE MED OR THYROID MEDICATION SEEN ON NOV. PT STATES SHE DOES NOT REMEMBER THE NAME OF THE SEIZURE MED, [facility] DR. VELIZ CALLED AND NOTIFIED OF PT'S CONCERN AND STATES WILL ADDRESS MEDS IN AM. PT AWARE.
[2018-02-22 00:10] VITALS: BP 98/56
--- NOTE | 2018-02-22 01:50 | NUR ---
OOB TO BSC WITH SAMMIE INGRAM'S ASSISTANCE.
--- NOTE | 2018-02-22 04:00 | NUR ---
RESTING IN BED WITH EYES CLOSED, RESPIRATIONS EVEN AND UNLABORED. CALL LIGHT IN REACH.
[2018-02-22 04:32] VITALS: BP 98/48
[2018-02-22 08:30] VITALS: BP 111/62
--- NOTE | 2018-02-22 08:30 | NUR ---
PT ASSESSMENT COMPLETED: IV SITE IS FREE FROM REDNESS OR EDEMA. HR IS REG, PULSES ARE STRONG X4, ABD IS SOFT WITH ACTIVE BS. CONTINUE TO OSBERVE AND MONITOR. TELE MONITOR IN PLACE.
[2018-02-22] MEDS ORDERED: LEVOTHYROXIN50 MCG PO (10:24)
[2018-02-22] MEDS ORDERED: LEVETIRACETAM500 MG PO (10:52)
[2018-02-22 11:17] VITALS: BP 103/67
[2018-02-22] MEDS ORDERED: AUGMENTIN500TAB PO (13:08)
--- NOTE | 2018-02-22 13:40 | NUR ---
IN TO VISIT WITH PT . INQUIRING WHAT SHE WOULD LIKE TO DO. STATING "DO U WANT TO GO HOME WITH ABT?" PT STATED "YES". IV SITE REMOVED AND CATHETER INTACT. PT WANTS TO SMOKE . DISCHARGE INSTRUCTIONS GIVEN AND VERBALIZED UNDERSTANDING. Discharge instructions given. Patient verbalizes understanding of same. Discharged in stable condition via Ambulatory to Home with family. All belongings sent with pt.
== END 2018-02-22 13:40 | disposition home or self-care (01) | DRG 641 ==
LOC: ED 15:52 → ED-I 19:34 → ED 19:45 → MS2 19:46
PROVIDERS: Emergency Medicine; ADMIT Internal Medicine Geriatric Medicine; ATTEND Internal Medicine Geriatric Medicine
DX: E83.51 Hypocalcemia (principal); I95.9 Hypotension, unspecified; E89.2 Postprocedural hypoparathyroidism; E89.0 Postprocedural hypothyroidism; K52.9 Noninfective gastroenteritis and colitis, unspecified; E11.649 Type 2 diabetes mellitus with hypoglycemia without coma; I48.91 Unspecified atrial fibrillation; I25.10 Atherosclerotic heart disease of native coronary artery without angina pectoris; J44.9 Chronic obstructive pulmonary disease, unspecified; K21.9 Gastro-esophageal reflux disease without esophagitis; K27.9 Peptic ulcer, site unspecified, unspecified as acute or chronic, without hemorrhage or perforation; F41.9 Anxiety disorder, unspecified; F32.9 Major depressive disorder, single episode, unspecified; M19.90 Unspecified osteoarthritis, unspecified site; F17.210 Nicotine dependence, cigarettes, uncomplicated; E83.42 Hypomagnesemia; Z91.19 Patient's noncompliance with other medical treatment and regimen

== ENCOUNTER 2018-02-27 11:25 | Emergency (ER) | payer MEDICARE ==
[~2018-02-27] VITALS: Ht 175.3 cm; Wt 75.5 kg
[~2018-02-27 11:25] MED LIST changes: +LEVOTHYROXIN200 MC2 PO
[2018-02-27 12:23] LABS: IMMATURE GRANULOCYTES 0.2 % (0.0-1.0); MEAN CORPUSCULAR HGB 30.9 pG CALC (26.0-32.0); NEUT# 4.29 thou/uL (2.00-7.15); RED BLOOD COUNT 4.43 mill/uL (4.20-5.60); RED CELL DISTRI WIDTH 12.7 % (11.5-15.5)
[2018-02-27 12:26] LABS: HEMATOCRIT 40.3 % (37.0-47.0); HEMOGLOBIN 13.7 g/dl (12.0-16.0)
[2018-02-27 12:41] LABS: ALKALINE PHOSPHATASE 70 u/l (38-126); BILIRUBIN, TOTAL 0.4 mg/dL (0.0-1.4); BUN 15 mg/dL (7-17); BUN/CREATININE RATIO 25 (12-20 (CALC)); CHLORIDE 97 mmol/l (95-108); CREATININE 0.6 mg/dL (0.5-1.0); GFR > 60 ML/MIN (>=60 (CALC)); GFR FOR AFR.AMER. > 60 ML/MIN (>=60 (CALC)); SGOT/AST 11 u/l (14-36); SGPT/ALT 29 u/l (9-52); SODIUM 133 mmol/l (137-146); TOTAL PROTEIN 6.9 g/dL (6.3-8.2)
[2018-02-27 12:43] LABS: ANION GAP 14 (6-22 (CALC)); CARBON DIOXIDE 26 mmol/l (22-30)
[2018-02-27 13:31] LABS: BARBITURATES NEGATIVE (NEGATIVE); COCAINE NEGATIVE (NEGATIVE); METHADONE NEGATIVE (NEGATIVE); OXCYCODONE NEGATIVE (NEGATIVE); TETRAHYDROCANNABIONOL NEGATIVE (NEGATIVE); TRICYLIC ANTIDEPRESSANTS NEGATIVE (NEGATIVE)
[2018-02-27 14:20] VITALS: BP 108/66
== END 2018-02-27 14:20 | disposition home or self-care (01) ==
LOC: ED 11:25 → ED-I 13:36 → ED 14:20
PROVIDERS: Emergency Medicine
DX: R53.1 Weakness (principal); I10 Essential (primary) hypertension; E11.9 Type 2 diabetes mellitus without complications; G40.909 Epilepsy, unspecified, not intractable, without status epilepticus; F17.210 Nicotine dependence, cigarettes, uncomplicated; R94.31 Abnormal electrocardiogram [ECG] [EKG]

== ENCOUNTER 2018-02-27 20:06 | Emergency (ER) | payer MEDICARE ==
[~2018-02-27] VITALS: Ht 175.3 cm; Wt 75.5 kg
[2018-02-27 20:36] LABS: HEMATOCRIT 41.8 % (37.0-47.0); HEMOGLOBIN 14.2 g/dl (12.0-16.0); IMMATURE GRANULOCYTES 0.2 % (0.0-1.0); MEAN CELL VOLUME 91.3 fL CALC (80.0-100.0); NEUT# 6.15 thou/uL (2.00-7.15); RED BLOOD COUNT 4.58 mill/uL (4.20-5.60); RED CELL DISTRI WIDTH 12.8 % (11.5-15.5)
[2018-02-27 20:47] LABS: ALBUMIN 4.2 g/dL (3.2-5.0); ALKALINE PHOSPHATASE 61 u/l (38-126); ANION GAP 14 (6-22 (CALC)); BILIRUBIN, TOTAL 0.3 mg/dL (0.0-1.4); BUN 16 mg/dL (7-17); BUN/CREATININE RATIO 24 (12-20 (CALC)); CARBON DIOXIDE 30 mmol/l (22-30); CHLORIDE 91 mmol/l (95-108); CREATININE 0.6 mg/dL (0.5-1.0); GFR > 60 ML/MIN (>=60 (CALC)); GFR FOR AFR.AMER. > 60 ML/MIN (>=60 (CALC)); POTASSIUM 4.6 mmol/l (3.5-5.1); SGOT/AST 15 u/l (14-36); SGPT/ALT 32 u/l (9-52); SODIUM 130 mmol/l (137-146); TOTAL PROTEIN 7.3 g/dL (6.3-8.2)
[2018-02-27 21:00] LABS: MYOGLOBIN 24 ng/mL (0 - 62)
[2018-02-27 21:40] VITALS: BP 122/63
== END 2018-02-27 21:40 | disposition home or self-care (01) ==
LOC: ED 20:06
DX: R53.1 Weakness (principal); R42 Dizziness and giddiness; R11.2 Nausea with vomiting, unspecified; G40.909 Epilepsy, unspecified, not intractable, without status epilepticus; E11.9 Type 2 diabetes mellitus without complications; I10 Essential (primary) hypertension; F32.9 Major depressive disorder, single episode, unspecified; F41.9 Anxiety disorder, unspecified; F17.210 Nicotine dependence, cigarettes, uncomplicated; R94.31 Abnormal electrocardiogram [ECG] [EKG]

== ENCOUNTER 2018-03-01 16:25 | Observation (INO) | payer MEDICARE ==
[~2018-03-01] VITALS: Ht 175.3 cm; Wt 74.5 kg
--- NOTE | 2018-03-01 16:25 | NUR ---
PT TO ROOM VIA EMS STRETCHER.
--- NOTE | 2018-03-01 16:55 | NUR ---
IVF HUNG AND PATIENT MEDICATED FOR NAUSEA ORDERED. WILL MONITOR FOR EFFECT. PATIENT ONLY COMPLAINT AT THIS TIME IS DIZZINESS
[2018-03-01 16:57] LABS: HEMATOCRIT 39.6 % (37.0-47.0); HEMOGLOBIN 13.6 g/dl (12.0-16.0); IMMATURE GRANULOCYTES 0.3 % (0.0-1.0); MEAN CELL VOLUME 91.2 fL CALC (80.0-100.0); MEAN CORPUSCULAR HGB 31.3 pG CALC (26.0-32.0); MEAN CORPUSCULAR HGB CONC 34.3 g/L CALC (32.0-36.0); NEUT# 3.94 thou/uL (2.00-7.15); RED BLOOD COUNT 4.34 mill/uL (4.20-5.60); RED CELL DISTRI WIDTH 12.7 % (11.5-15.5)
[2018-03-01 17:20] LABS: ALBUMIN 3.8 g/dL (3.2-5.0); ALKALINE PHOSPHATASE 63 u/l (38-126); BILIRUBIN, TOTAL 0.3 mg/dL (0.0-1.4); BUN 12 mg/dL (7-17); BUN/CREATININE RATIO 18 (12-20 (CALC)); CARBON DIOXIDE 27 mmol/l (22-30); CHLORIDE 97 mmol/l (95-108); CREATININE 0.7 mg/dL (0.5-1.0); GFR > 60 ML/MIN (>=60 (CALC)); GFR FOR AFR.AMER. > 60 ML/MIN (>=60 (CALC)); LIPASE 49 u/l (23-300); SGOT/AST 12 u/l (14-36); SGPT/ALT 26 u/l (9-52); SODIUM 131 mmol/l (137-146); TOTAL PROTEIN 6.9 g/dL (6.3-8.2)
[2018-03-01 17:21] LABS: ANION GAP 11 (6-22 (CALC)); POTASSIUM 3.6 mmol/l (3.5-5.1)
--- NOTE | 2018-03-01 17:40 | NUR ---
SBAR PRINTED TO FLOOR
--- NOTE | 2018-03-01 17:50 | NUR ---
CALCIUM GLUCONATE STARTED. PATIENT NAUSEA IMRPOVED, REQUESTING MEAL TRY. PATIENT AWARE OF PLANS TO ADMIT TO THE FLOOR.
--- NOTE | 2018-03-01 18:03 | NUR ---
REPORT CALLED TO DEBBY. PATIENT READIED FOR TRANSPORT TO FLOOR VIA STRETCHER, WITH RN, ON TELE.
--- NOTE | 2018-03-01 18:24 | NUR ---
PT CAME FROM ER VIA STRETCHER BY NURSE EUGENE. PT STATED THAT SHE IS HUNGRY WILL ORDER A FOOD TRAY. PT DENIES ANY OTHER NEEDS AT THIS TIME. CALCIUM GLUCONATE INFUSING WELL. CALL LIGHT IN REACH.
[2018-03-01 18:30] VITALS: BP 124/70
[2018-03-01 18:43] LABS: URINE BILIRUBIN - DIPSTICK NEGATIVE (NEGATIVE); URINE BLOOD DIPSTICK TRACE-LYSED (NEGATIVE); URINE COLOR YELLOW; URINE GLUCOSE - DIPSTICK NEGATIVE (NEGATIVE); URINE KETONE NEGATIVE (NEGATIVE); URINE LEUK ESTERASE NEGATIVE (NEGATIVE); URINE NITRITE - DIPSTICK NEGATIVE (Negative); URINE PH 7.5 (4.5-8.0); URINE PROTEIN - DIPSTICK NEGATIVE (NEG-TRACE); URINE UROBILINOGEN - DIPSTICK 0.2 E.U./dL (0.2)
[2018-03-01 18:44] LABS: URINE CLARITY CLEAR
[2018-03-01 19:19] LABS: C. DIFFICILE TOXIN A&B NEGATIVE (NEGATIVE)
--- NOTE | 2018-03-01 20:00 | NUR ---
BEDSIDE REPORT RECEIVED FROM LEELA GUARDADO. PT RESTING IN BED ON RIGHT SIDE; ALERT AND ORIENTED. DENIES PAIN CURRENTLY. RESPIRATIONS EVEN AND UNLABORED ON ROOM AIR. PLAN OF CARE DISCUSSED. PT ENCOURAGED TO VERBALIZE CONCERNS. STATES UNDERSTANDING. SAFETY MEASURES IN PLACE. CALL LIGHT WITHIN REACH.
[2018-03-01 22:35] VITALS: BP 112/65
--- NOTE | 2018-03-02 00:12 | NUR ---
PT RESTING IN BED WITH EYES CLOSED. RESPIRATIONS EVEN AND UNLABROED ON ROOM AIR. ONE PERSON ASSIST TO BSC R/T RIGHT FOOT STUMP. PT HAS HAD 4 INCONTINENT EPISODES OF LOOSE BOWEL MOVEMENT; SHE STATES THAT SHE TOOK AM IMMODIUM YESTERDAY AT HOME AND THIS HAPPENS OCCASIONALLY; PT ALLOWED STAFF TO ASSIST WITH HYGIENE. IV FLUIDS INFUSING WITHOUT DIFFICULTY; IV SITE APPEARS HEALTHY. PT HAS NO REQUESTS OR CONCERNS AT THIS TIME. SAFETY MEASURES IN PLACE. CALL LIGHT WITHIN REACH.
--- NOTE | 2018-03-02 04:01 | NUR ---
PT ASLEEP AT THIS TIME WITH NO SIGNS OF DISTRESS. RESPIRATIONS EVEN AND UNLABORED ON ROOM AIR. NO ACUTE CHANGES IN CONDITION THROUGHOUT THE NIGHT. SAFETY MEASURES IN PLACE. CALL LIGHT WITHIN REACH.
[2018-03-02 04:15] VITALS: BP 107/60
[2018-03-02 06:06] LABS: HEMATOCRIT 38.8 % (37.0-47.0); HEMOGLOBIN 13.2 g/dl (12.0-16.0); IMMATURE GRANULOCYTES 0.3 % (0.0-1.0); MEAN CELL VOLUME 92.2 fL CALC (80.0-100.0); MEAN CORPUSCULAR HGB 31.4 pG CALC (26.0-32.0); NEUT# 3.7 thou/uL (2.00-7.15); RED BLOOD COUNT 4.21 mill/uL (4.20-5.60); RED CELL DISTRI WIDTH 12.8 % (11.5-15.5)
[2018-03-02 06:17] LABS: ALBUMIN 3.2 g/dL (3.2-5.0); ALKALINE PHOSPHATASE 56 u/l (38-126); ANION GAP 7 (6-22 (CALC)); BILIRUBIN, TOTAL 0.3 mg/dL (0.0-1.4); BUN 12 mg/dL (7-17); BUN/CREATININE RATIO 19 (12-20 (CALC)); CARBON DIOXIDE 28 mmol/l (22-30); CHLORIDE 105 mmol/l (95-108); CREATININE 0.6 mg/dL (0.5-1.0); GFR > 60 ML/MIN (>=60 (CALC)); GFR FOR AFR.AMER. > 60 ML/MIN (>=60 (CALC)); MAGNESIUM 1.7 mg/dL (1.6-2.3); POTASSIUM 4.1 mmol/l (3.5-5.1); SGOT/AST 8 u/l (14-36); SGPT/ALT 22 u/l (9-52); SODIUM 136 mmol/l (137-146); TOTAL PROTEIN 5.8 g/dL (6.3-8.2)
[2018-03-02 07:45] VITALS: BP 107/57
--- NOTE | 2018-03-02 07:45 | NUR ---
ASSESSMENT IS COMPLETED: IV SITE IS FREE FROM REDNESS OR EDEMA. HR IS REG, PULSES ARE STRONG X4, ABD IS SOFT WITH ACTIVE BS, TELE MONITOR IN PLACE. CONTINUE TO OBSERVE AND MONITOR
[2018-03-02 09:34] VITALS: BP 107/57
--- NOTE | 2018-03-02 11:00 | NUR ---
DISCHARGE INSTRUCTIONS GIVEN, IV SITE IS FREE FROM REDNESS OR EDEMA. DISCONTINUED CATHETER INTACT. [facility] CALLED FOR PT. CONTINUE TO OSBERVE AND MONITOR. Discharge instructions given. Patient verbalizes understanding of same. Discharged in stable condition via Wheelchair to Home with family. All belongings sent with pt.
== END 2018-03-02 10:42 | disposition home or self-care (01) ==
LOC: ED 16:25 → ED-I 17:21 → ED 17:38 → MS2 17:39
PROVIDERS: Family Medicine; ADMIT Internal Medicine Geriatric Medicine; ATTEND Internal Medicine Geriatric Medicine
DX: E86.0 Dehydration (principal); E83.51 Hypocalcemia; G40.909 Epilepsy, unspecified, not intractable, without status epilepticus; E89.2 Postprocedural hypoparathyroidism; I10 Essential (primary) hypertension; E87.1 Hypo-osmolality and hyponatremia; F32.9 Major depressive disorder, single episode, unspecified; E11.65 Type 2 diabetes mellitus with hyperglycemia; F17.210 Nicotine dependence, cigarettes, uncomplicated; K52.9 Noninfective gastroenteritis and colitis, unspecified; J44.9 Chronic obstructive pulmonary disease, unspecified; E89.0 Postprocedural hypothyroidism; F41.1 Generalized anxiety disorder; I48.91 Unspecified atrial fibrillation; I25.10 Atherosclerotic heart disease of native coronary artery without angina pectoris; Z91.19 Patient's noncompliance with other medical treatment and regimen; Z79.4 Long term (current) use of insulin

== ENCOUNTER 2018-07-16 16:47 | Emergency (ER) | payer MEDICARE, MEDICAID ==
[~2018-07-16] VITALS: Ht 175.3 cm; Wt 76.0 kg
[2018-07-16 18:04] LABS: HEMATOCRIT 35.2 % (37.0-47.0); HEMOGLOBIN 12.6 g/dl (12.0-16.0); IMMATURE GRANULOCYTES 0.3 % (0.0-5.0); MEAN CELL VOLUME 92.1 fL CALC (80.0-100.0); MEAN CORPUSCULAR HGB CONC 35.8 g/L CALC (32.0-36.0); NEUT# 5.42 thou/uL (2.00-7.15); RED BLOOD COUNT 3.82 mill/uL (4.20-5.60); RED CELL DISTRI WIDTH 13.2 % (11.5-15.5)
[2018-07-16 18:07] LABS: ALBUMIN 3.5 g/dL (3.2-5.0); ALKALINE PHOSPHATASE 48 u/l (38-126); BILIRUBIN, TOTAL 0.3 mg/dL (0.0-1.4); BUN 14 mg/dL (7-17); BUN/CREATININE RATIO 20 (12-20 (CALC)); CARBON DIOXIDE 21 mmol/l (22-30); CHLORIDE 98 mmol/l (95-108); CREATININE 0.7 mg/dL (0.5-1.0); GFR > 60 ML/MIN (>=60 (CALC)); GFR FOR AFR.AMER. > 60 ML/MIN (>=60 (CALC)); POTASSIUM 4.4 mmol/l (3.5-5.1); TOTAL PROTEIN 6.1 g/dL (6.3-8.2)
[2018-07-16 18:08] LABS: ANION GAP 15 (6-22 (CALC)); SODIUM 130 mmol/l (137-146)
[2018-07-16 18:09] LABS: SGOT/AST 23 u/l (14-36)
[2018-07-16 18:56] VITALS: BP 108/55
== END 2018-07-16 18:56 | disposition left against medical advice (07) ==
LOC: ED 16:47
PROVIDERS: Emergency Medicine
DX: E83.51 Hypocalcemia (principal); E11.65 Type 2 diabetes mellitus with hyperglycemia; Z79.84 Long term (current) use of oral hypoglycemic drugs; F17.210 Nicotine dependence, cigarettes, uncomplicated; Z91.19 Patient's noncompliance with other medical treatment and regimen

== ENCOUNTER 2018-07-23 15:17 | Observation (INO) | payer MEDICARE ==
[~2018-07-23] VITALS: Ht 165.1 cm; Wt 72.0 kg
--- NOTE | 2018-07-23 15:51 | NUR ---
PT AWARE OF BUSY ED AND WAIT TIME. PT AMBULATED TO ROOM WTIH A STEADY GAIT TO AWAIT ROOM ASSIGNMENT.
[2018-07-23 16:48] LABS: IMMATURE GRANULOCYTES 0.4 % (0.0-5.0); MEAN CELL VOLUME 91.1 fL CALC (80.0-100.0); MEAN CORPUSCULAR HGB 32.8 pG CALC (26.0-32.0); MEAN CORPUSCULAR HGB CONC 35.9 g/L CALC (32.0-36.0); NEUT# 4.78 thou/uL (2.00-7.15); RED BLOOD COUNT 4.06 mill/uL (4.20-5.60); RED CELL DISTRI WIDTH 12.9 % (11.5-15.5)
[2018-07-23 16:50] LABS: HEMOGLOBIN 13.3 g/dl (12.0-16.0)
--- NOTE | 2018-07-23 17:00 | NUR ---
PATIENT DIRECTOR MANUFACTURING ENGINEERING LIGHT REQUESTING MEAL TRAY.
[2018-07-23 17:02] LABS: ALKALINE PHOSPHATASE 56 u/l (38-126); ANION GAP 14 (6-22 (CALC)); BILIRUBIN, TOTAL 0.3 mg/dL (0.0-1.4); BUN 12 mg/dL (7-17); BUN/CREATININE RATIO 18 (12-20 (CALC)); CARBON DIOXIDE 25 mmol/l (22-30); CHLORIDE 93 mmol/l (95-108); CREATININE 0.6 mg/dL (0.5-1.0); GFR > 60 ML/MIN (>=60 (CALC)); GFR FOR AFR.AMER. > 60 ML/MIN (>=60 (CALC)); LIPASE 134 u/l (23-300); POTASSIUM 4.5 mmol/l (3.5-5.1); SGOT/AST 16 u/l (14-36); SODIUM 127 mmol/l (137-146); TOTAL PROTEIN 6.8 g/dL (6.3-8.2)
--- NOTE | 2018-07-23 17:20 | NUR ---
EKG OBATINED, PLACED ON ADULT EDUCATION PROFESSIONAL. SOCKS AND WARM BLANKET PROVIDED PER REQUEST. UPDATED ON PLAN OF CARE VERBAL UNDERSTANDING.
[2018-07-23] MEDS ORDERED: ASPIRIN81 MG PO (17:23)
[2018-07-23 17:41] LABS: URINE BILIRUBIN - DIPSTICK NEGATIVE (NEGATIVE); URINE BLOOD DIPSTICK TRACE-INTACT (NEGATIVE); URINE COLOR YELLOW; URINE GLUCOSE - DIPSTICK NEGATIVE (NEGATIVE); URINE KETONE NEGATIVE (NEGATIVE); URINE LEUK ESTERASE NEGATIVE (NEGATIVE); URINE NITRITE - DIPSTICK NEGATIVE (Negative); URINE PH 7.5 (4.5-8.0); URINE PROTEIN - DIPSTICK NEGATIVE (NEG-TRACE); URINE UROBILINOGEN - DIPSTICK 0.2 E.U./dL (0.2)
[2018-07-23 17:53] LABS: URINE CLARITY CLEAR
--- NOTE | 2018-07-23 18:22 | NUR ---
PATIENT DIRECTOR OF REVENUE LIGHT, ASSISTED UP TO BSC, 600 ML OF CLEAR YELLOW URINE OUT IN TOTAL SINCE ARRIVAL TO ED. ASSISTED BACK ONTO STRETCHER, CALL LIGHT WITHIN REACH.
--- NOTE | 2018-07-23 18:40 | NUR ---
PATIENT ASSISTED TO AND FROM BSC.
--- NOTE | 2018-07-23 18:50 | NUR ---
REPORT GIVEN TO LEELA CHILD. INFORMED ON BLOOD CULTURE ORDERS AND ANTIBIOTIC ORDER. CARE RELINQUISHED. PATIENT IN STABLE CONDITION.
--- NOTE | 2018-07-23 19:20 | NUR ---
REPORT CALLED TO CHANTEL.
[2018-07-23 19:40] VITALS: BP 113/63
--- NOTE | 2018-07-23 19:40 | NUR ---
PT TRANSPORTED TO FLOOR BY MATEUSZ.
--- NOTE | 2018-07-23 20:00 | NUR ---
pt arrived on floor at 1940 via M-Factorcher. pt alert oriented. able to transfer with min. assist. assessment complete. pt denies pain at this time. continues to have diarrhea. skin clear no open wounds. 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 pt has iv bilatal forearm with calcium and zosyn. no adverse reactions noted. will monitor.
--- NOTE | 2018-07-23 20:10 | NUR ---
pt assisted to bedside commonde. linen changed, gown provided.
--- NOTE | 2018-07-23 20:50 | NUR ---
water and coffee provided to patient. pt assisted to bedside commode bu nurse.
[2018-07-24 00:47] VITALS: BP 87/55
[2018-07-24 04:00] VITALS: BP 122/62
--- NOTE | 2018-07-24 05:14 | NUR ---
PT ASSISTED TO BSC. PT REQUESTED A CUP OF COFFEE. COFFEE PROVIDED. DIARRHEA SLOWING DOWN FROM EARLY IIN THE SHIFT.NO ABDOMINAL PAIN VOICED.
[2018-07-24 05:16] LABS: HEMOGLOBIN 13.2 g/dl (12.0-16.0); IMMATURE GRANULOCYTES 0.3 % (0.0-5.0); MEAN CELL VOLUME 90.9 fL CALC (80.0-100.0); MEAN CORPUSCULAR HGB 32.4 pG CALC (26.0-32.0); MEAN CORPUSCULAR HGB CONC 35.7 g/L CALC (32.0-36.0); NEUT# 3.69 thou/uL (2.00-7.15); RED BLOOD COUNT 4.07 mill/uL (4.20-5.60); RED CELL DISTRI WIDTH 12.9 % (11.5-15.5)
[2018-07-24 05:22] LABS: ALBUMIN 3.3 g/dL (3.2-5.0); ALKALINE PHOSPHATASE 46 u/l (38-126); BILIRUBIN, TOTAL 0.2 mg/dL (0.0-1.4); BUN 12 mg/dL (7-17); BUN/CREATININE RATIO 18 (12-20 (CALC)); CARBON DIOXIDE 24 mmol/l (22-30); CREATININE 0.6 mg/dL (0.5-1.0); GFR > 60 ML/MIN (>=60 (CALC)); GFR FOR AFR.AMER. > 60 ML/MIN (>=60 (CALC)); POTASSIUM 4.1 mmol/l (3.5-5.1); SGOT/AST 16 u/l (14-36); TOTAL PROTEIN 5.7 g/dL (6.3-8.2)
[2018-07-24 05:28] LABS: ANION GAP 11 (6-22 (CALC)); CHLORIDE 106 mmol/l (95-108); SODIUM 137 mmol/l (137-146)
[2018-07-24 05:50] LABS: TSH, 3RD GENERATION 1.61 uIU/mL (0.47 - 4.68)
--- NOTE | 2018-07-24 07:05 | NUR ---
PT REPORT RECIEVED FROM DORARN. PT SITTING ON SIDE OF BED. NO S/S OF DISTRESS. CALL LIGHT IN REACH. WILL CONTINUE TO MONITOR
[2018-07-24 09:20] VITALS: BP 109/54
--- NOTE | 2018-07-24 09:34 | NUR ---
PT ASSESSMENT COMPLETE. A/O X3. SPEECH IS CLEAR. RESP EVEN AND UNLABORED. LUNG SOUNDS CLEAR. BOWEL SOUNDS ACTIVE X4. STRONG RADIAL AND PEDAL PULSES. #20 RFA AND #20 LW SL. FLUSHED AND PATENT. SITE APPEARS HEALTHY. PARTIAL RT FOOT AMPUTE. SKIN INTACT. PT REQUESTING CRACKES AND PUDDING. POC DISCUSSED. SAFETY PRECAUTIONS IN PLACE. BSC NEAR BED. CALL LIGHT IN REACH. WILL CONTINUE TO MONITOR.
[2018-07-24 11:10] VITALS: BP 112/64
--- NOTE | 2018-07-24 12:11 | NUR ---
PT C/O HEADACHE 10 OUT OF 10 ON PAIN SCALE. MEDICATED W/ TWO 325MG TYLENOL TABLETS. PT REQUESTING COFFEE AT THIS TIME. BSC NEAR BED. CALL LIGHT IN REACH. WILL CONTINUE TO MONITOR
--- NOTE | 2018-07-24 14:09 | NUR ---
PT STATES HEADACHE HAS GONE AWAY. PT DENIES ANY FURTHER NEEDS. WILL CONTINUE TO MONITOR
--- NOTE | 2018-07-24 14:41 | NUR ---
Spoke to patient about medication history and adverse effects of medications. Patient verbally understood. Counseled patient on diabetes and thyroid medication.
[2018-07-24 15:00] VITALS: BP 122/54
--- NOTE | 2018-07-24 17:06 | NUR ---
PT C/O HEADACHE AND ACHING BACK PAIN 8 OUT OF 10 ON PAIN SCALE. MEDICATED W/ TWO 325MG TYLENOL PO. REPOSITIONED FOR COMFORT. BSC NEAR BED. CALL LIGHT IN REACH. WILL CONTINUE TO MONITOR
[2018-07-24 20:00] VITALS: BP 124/68
[2018-07-25 00:52] VITALS: BP 126/64
[2018-07-25 04:00] VITALS: BP 101/61
[2018-07-25 05:27] LABS: HEMATOCRIT 37.9 % (37.0-47.0); HEMOGLOBIN 13.8 g/dl (12.0-16.0); IMMATURE GRANULOCYTES 0.3 % (0.0-5.0); MEAN CELL VOLUME 90.5 fL CALC (80.0-100.0); MEAN CORPUSCULAR HGB 32.9 pG CALC (26.0-32.0); MEAN CORPUSCULAR HGB CONC 36.4 g/L CALC (32.0-36.0); NEUT# 6.74 thou/uL (2.00-7.15); RED BLOOD COUNT 4.19 mill/uL (4.20-5.60); RED CELL DISTRI WIDTH 12.8 % (11.5-15.5)
[2018-07-25 05:39] LABS: ALBUMIN 3.4 g/dL (3.2-5.0); ALKALINE PHOSPHATASE 56 u/l (38-126); ANION GAP 11 (6-22 (CALC)); BILIRUBIN, TOTAL 0.4 mg/dL (0.0-1.4); BUN 13 mg/dL (7-17); BUN/CREATININE RATIO 22 (12-20 (CALC)); CARBON DIOXIDE 24 mmol/l (22-30); CHLORIDE 105 mmol/l (95-108); CREATININE 0.6 mg/dL (0.5-1.0); GFR > 60 ML/MIN (>=60 (CALC)); GFR FOR AFR.AMER. > 60 ML/MIN (>=60 (CALC)); POTASSIUM 4.1 mmol/l (3.5-5.1); SGOT/AST 21 u/l (14-36); SODIUM 135 mmol/l (137-146); TOTAL PROTEIN 5.9 g/dL (6.3-8.2)
--- NOTE | 2018-07-25 07:00 | NUR ---
PT REPORT RECIEVED FROM LEELA MA. PT WATCHING TELEVISION. NO S/S OF DISTRESS. CALL LIGHT IN REACH. WILL CONTINUE TO MONITOR
[2018-07-25 07:26] VITALS: BP 109/60
--- NOTE | 2018-07-25 07:26 | NUR ---
PT ASSESSMENT COMPLETE. A/O X3. SPEECH IS CLEAR. RESP EVEN AND UNLABORED. TELE IN PPLACE. LUNG SOUNDS CLEAR. BOWEL SOUNDS ACTIVE X4. STRONG RADIAL AND PEDAL PULSES. #20 RFA AND #20 LW SL. FLUSHED AND PATENT. SITES APPEARS HEALTHY. PT HAS PARTIAL RT FOOT AMPUTE, HEALED. SKIN INTACT.PT DENIES ANY PAIN OR NEEDS. BSC NEAR BED. CANE AT BEDSIDE. SAFETY PRECAUTIONS IN PLACE. CALL LIGHT IN REACH. WILL CONTINUE TO MONITOR
--- NOTE | 2018-07-25 09:00 | NUR ---
D/C INSTRUCTIONS REVIEWED W/ PT. BOTH IV SITES REMOVED. CATHETERS INTACT. VOLUNTEER UP TO TRANSPORT PT DOWNSTAIRS VIA WHEELCHAIR.
--- NOTE | 2018-07-25 09:14 | NUR ---
Discharge instructions given. Patient verbalizes understanding of same. Discharged in stable condition via Wheelchair to Home with family. All belongings sent with pt.
== END 2018-07-25 09:13 | disposition home or self-care (01) ==
LOC: ED 15:17 → ED-I 18:24 → ED 18:39 → MS2 18:40
PROVIDERS: Family Medicine; ADMIT Internal Medicine Geriatric Medicine; ATTEND Internal Medicine Geriatric Medicine
DX: K59.00 Constipation, unspecified (principal); E83.51 Hypocalcemia; E89.0 Postprocedural hypothyroidism; E89.2 Postprocedural hypoparathyroidism; E83.42 Hypomagnesemia; E11.65 Type 2 diabetes mellitus with hyperglycemia; E11.51 Type 2 diabetes mellitus with diabetic peripheral angiopathy without gangrene; I10 Essential (primary) hypertension; J44.9 Chronic obstructive pulmonary disease, unspecified; I48.91 Unspecified atrial fibrillation; G40.909 Epilepsy, unspecified, not intractable, without status epilepticus; F17.210 Nicotine dependence, cigarettes, uncomplicated; I25.10 Atherosclerotic heart disease of native coronary artery without angina pectoris; F32.9 Major depressive disorder, single episode, unspecified; F41.9 Anxiety disorder, unspecified
CPT/HCPCS: Q9967

== ENCOUNTER 2018-08-11 16:36 | Inpatient (IN) | payer MEDICARE ==
[~2018-08-11] VITALS: Ht 165.1 cm; Wt 70.0 kg
[~2018-08-11 16:36] MED LIST changes: +ASPIRIN81 MG PO
--- NOTE | 2018-08-11 16:46 | NUR ---
PT TO ROOM VIA EMS PT STATES THAT SHE HAS FELT DIZZY FOR THE LAST 24 HOURS. PT STATES THAT SHE HAS NOT HAD ANY SENSORY OR MOTOR FUNCTION CHANGES. PT IS AOX4. PT DENIES ANY C/P, SOB, N/V. PT STATES HAVING CHRONIC LEG PAIN.
[2018-08-11 17:18] LABS: HEMATOCRIT 41.1 % (37.0-47.0); HEMOGLOBIN 14.3 g/dl (12.0-16.0); IMMATURE GRANULOCYTES 0.3 % (0.0-5.0); MEAN CELL VOLUME 93.2 fL CALC (80.0-100.0); MEAN CORPUSCULAR HGB 32.4 pG CALC (26.0-32.0); MEAN CORPUSCULAR HGB CONC 34.8 g/L CALC (32.0-36.0); NEUT# 6.57 thou/uL (2.00-7.15); RED BLOOD COUNT 4.41 mill/uL (4.20-5.60); RED CELL DISTRI WIDTH 12.6 % (11.5-15.5)
--- NOTE | 2018-08-11 17:46 | NUR ---
PT RESTING ON STRETCHER, USING CELL PHONE. NO COMPLAINTS STATED AT THIS TIME.
[2018-08-11 18:04] LABS: BILIRUBIN, TOTAL 0.7 mg/dL (0.0-1.4); CREATININE 1.3 mg/dL (0.5-1.0)
[2018-08-11 18:11] LABS: ALBUMIN 4.1 g/dL (3.2-5.0); POTASSIUM 3.2 mmol/l (3.5-5.1); TOTAL PROTEIN 7.1 g/dL (6.3-8.2)
[2018-08-11 18:25] LABS: URINE BILIRUBIN - DIPSTICK NEGATIVE (NEGATIVE); URINE BLOOD DIPSTICK TRACE-LYSED (NEGATIVE); URINE COLOR YELLOW; URINE GLUCOSE - DIPSTICK NEGATIVE (NEGATIVE); URINE KETONE NEGATIVE (NEGATIVE); URINE LEUK ESTERASE NEGATIVE (NEGATIVE); URINE NITRITE - DIPSTICK NEGATIVE (Negative); URINE PH 7.5 (4.5-8.0); URINE PROTEIN - DIPSTICK TRACE mg/dL (NEG-TRACE); URINE UROBILINOGEN - DIPSTICK 0.2 E.U./dL (0.2)
[2018-08-11 18:27] LABS: URINE CLARITY CLEAR
[2018-08-11 18:28] LABS: BARBITURATES NEGATIVE (NEGATIVE); COCAINE NEGATIVE (NEGATIVE); METHADONE NEGATIVE (NEGATIVE); OXCYCODONE NEGATIVE (NEGATIVE); TETRAHYDROCANNABIONOL NEGATIVE (NEGATIVE); TRICYLIC ANTIDEPRESSANTS NEGATIVE (NEGATIVE)
--- NOTE | 2018-08-11 18:46 | NUR ---
PT RESTING ON STRETCHER, NO COMPLAINTS STATED AT THIS TIME
--- NOTE | 2018-08-11 19:46 | NUR ---
PT UP TO BEDSIDE COMMODE. AND BACK TO BED
--- NOTE | 2018-08-11 20:46 | NUR ---
PT ASLEEP ON STRETCHER, VITALS BEING MONITORED
--- NOTE | 2018-08-11 21:28 | NUR ---
PT ASLEEP ON STRETCHER REPORT CALLED TO ICU- REPORT GIVEN TO IAN SWENSON
--- NOTE | 2018-08-11 21:40 | NUR ---
PT. ARRIVES VIA STRETCHER FROM ER. AMBULATORY WITH SLOW, CANE WALKING GAIT TO STANDING ELECTRONIC SCALE AND THEN TO BED. PT. FOUND TO HAVE ADULT DIAPER COMPLETELY SOILED WITH STOOL. ER STRETCHER NOTED STAINED WITH STOOL WELL. ORIENTED TO PERSON, PLACE AND TIME. DENIES DIZZINESS ON ARRIVAL TO ICU. ASKING FOR FOOD IMMEDIATELY ON ARRIVAL TO UNIT. UNCOOPERATIVE WITH CARE. CLEANSED OF STOOL THAT IS OLD AND DRIED. PT. STATES SHE "DOES THE BEST SHE CAN" WITH TAKING CARE OF HERSELF AT HOME. MARKEDLY UNKEMPT. FINGERNAILS COMPLETELY DIRTY. STOOL DRIED. DILLON AREA RED/EXCORIATED. COPIOUS CLEANING DONE. WHEN ATTEMPTING TO SIT PATIENT UP, SHE IS UNCOOPERATIVE, ASKING TO BE COVERED AND LAID DOWN. PT. UPDATED ON CURRENT PLAN OF CARE FOR THE NIGHT.
[2018-08-11 21:45] VITALS: BP 135/80
--- NOTE | 2018-08-11 21:48 | NUR ---
Admission Note Report Given to: IAN SWENSON Transported by: Wheelchair X Stretcher Transported with: X Nurse Transporter X Patent IV O2 X Train Brake Operator TRANSPORTED TO ICU 2 WITHOUT INCIDENT
[2018-08-11 22:00] VITALS: BP 145/81
[2018-08-11 22:30] VITALS: BP 149/76
--- NOTE | 2018-08-11 22:30 | NUR ---
PT. ASSISTED TO BSC. INCONTINENT OF URINE IN BRIEF. APPROX 250 CC URINE OUT AT THIS TIME TO BSC. UNDERGARMENT APPLIED AFTER ASSISTED BACK TO BED.
--- NOTE | 2018-08-11 22:44 | NUR ---
PT. PROVIDED WITH A TURKEY SANDWICH, YOGURT, KRISTEN CRACKERS AND COFFEE PER HER REQUEST. WILL CONTINUE TO MONITOR.
[2018-08-11 23:00] VITALS: BP 125/47
--- NOTE | 2018-08-11 23:24 | NUR ---
PT. AGAIN ASSISTED TO BSC. INCONTINENT OF URINE AND STOOL. PT. HAS YOGURT ALL OVER GOWN. GOWN CHANGED AND ALL LINENS CHANGED PT. HAS SOILED THEM WITH FOOD. DIAPER CHANGED AND CLEANSED OF STOOL AND URINE. PROVIDED WITH NEW SHEET AND BLANKET.
--- NOTE | 2018-08-11 23:55 | NUR ---
PT. AGAIN CLEANSED OF STOOL. DIAPER CHANGED.
[2018-08-12] VITALS (8 sets, daily range): BP systolic 108–147; BP diastolic 49–75
--- NOTE | 2018-08-12 01:32 | NUR ---
PT. RESTING IN BED WITH SNORING RESPIRATIONS. REMAINS IN NO DISTRESS AT THIS TIME. VSS. WILL CONTINUE TO ASSESS.
--- NOTE | 2018-08-12 01:49 | NUR ---
PT. AGAIN INCONTINENT OF URINE AND STOOL. AGAIN ASSISTED TO BEDSIDE COMMODE. REMAINS STABLE IN NO DISTRESS. REMAINS UNCOOPERATIVE. URINATED ON THE FLOOR PRIOR TO GETTING TO BSC. DILLON-CARE PROVIDED.
--- NOTE | 2018-08-12 02:56 | NUR ---
PT. AGAIN CLEANSED OF STOOL INCONTINENCE. DENIES OTHER COMPLAINTS OR NEEDS AT THIS TIME. REMAINS HIGHLY STABLE.
--- NOTE | 2018-08-12 04:09 | NUR ---
PT. RESTGIN IN BED IN NO DISTRESS. REMAINS STABLE IN NO DISTRESS. CALL LIGHT REMAINS WITHIN REACH. WILL CONTINUE TO ASSESS.
--- NOTE | 2018-08-12 05:30 | NUR ---
PT. AGAIN INCONTINENT OF STOOL. ALL LINENS CHANGED AND PARTIAL BED BATH GIVEN. PT. DENIES OTHER COMPLAINTS OR NEEDS AT THIS TIME.
--- NOTE | 2018-08-12 05:49 | NUR ---
LAB AT BEDSIDE AT THIS TIME.
[2018-08-12 06:05] LABS: HEMATOCRIT 35.8 % (37.0-47.0); HEMOGLOBIN 12.5 g/dl (12.0-16.0); IMMATURE GRANULOCYTES 0.4 % (0.0-5.0); MEAN CELL VOLUME 94.5 fL CALC (80.0-100.0); MEAN CORPUSCULAR HGB CONC 34.9 g/L CALC (32.0-36.0); NEUT# 7.12 thou/uL (2.00-7.15); RED BLOOD COUNT 3.79 mill/uL (4.20-5.60); RED CELL DISTRI WIDTH 12.7 % (11.5-15.5)
--- NOTE | 2018-08-12 06:26 | NUR ---
PT. RESTING ON RT. SIDE IN NO DISTRESS. DENIES COMPLAINTS OR NEEDS. MEDICATED PER PHYSICIAN ORDERS.
[2018-08-12 06:29] LABS: ALBUMIN 3.6 g/dL (3.2-5.0); BILIRUBIN, TOTAL 0.5 mg/dL (0.0-1.4); CREATININE 1.2 mg/dL (0.5-1.0); POTASSIUM 3.1 mmol/l (3.5-5.1); TOTAL PROTEIN 6.3 g/dL (6.3-8.2)
[2018-08-12 06:32] LABS: MAGNESIUM 2.4 mg/dL (1.6-2.3)
--- NOTE | 2018-08-12 06:50 | NUR ---
REPORT RECVD FROM LEELA SOSA @ START OF SHIFT.
--- NOTE | 2018-08-12 07:45 | NUR ---
PT SLEEPING. WILL HOLD BREAKFAST UNTIL PT IS AWAKE.
--- NOTE | 2018-08-12 08:14 | NUR ---
DR VELIZ @BEDSIDE, ASSESSING PT, DISCUSSING POC & TEST RESULTS.
--- NOTE | 2018-08-12 08:21 | NUR ---
PT SITTING UP IN BED, EATING BREAKFAST. PT REMINDED HOW TO USE THE CONTROLS ON HER BED.
--- NOTE | 2018-08-12 08:36 | NUR ---
PER DR VELIZ, PT WILL BE DOWN GRADED TO [facility]. HE IS PUTTING THE ORDER IN NOW.
--- NOTE | 2018-08-12 09:16 | NUR ---
PT ASSISTED UP TO BSC. APPROX 150CC YELLOW OUTPUT. PT IMPATIENT FOR STAFFS HELP, MOVED HERSELF BACK TO BED. PT REMINDED TO WAIT FOR STAFF. PT RESPONDED "I'D RATHER THAN COME TO THIS HOSPITAL"
--- NOTE | 2018-08-12 10:29 | NUR ---
CALLED [facility] FOR TRANSFER BED ASSIGNMENT. WILL GO TO 278 AFTER ROOM IS CLEANED.
--- NOTE | 2018-08-12 11:38 | NUR ---
LAB @BEDSIDE FOR DRAW. RADIOLOGY WILL BE READY FOR 2V CHEST XR IN 15 [place] NS.
[2018-08-12 11:54] LABS: HEMATOCRIT 37.4 % (37.0-47.0); HEMOGLOBIN 12.8 g/dl (12.0-16.0); IMMATURE GRANULOCYTES 0.2 % (0.0-5.0); MEAN CELL VOLUME 94.4 fL CALC (80.0-100.0); MEAN CORPUSCULAR HGB 32.3 pG CALC (26.0-32.0); MEAN CORPUSCULAR HGB CONC 34.2 g/L CALC (32.0-36.0); NEUT# 5.5 thou/uL (2.00-7.15); RED BLOOD COUNT 3.96 mill/uL (4.20-5.60); RED CELL DISTRI WIDTH 12.5 % (11.5-15.5)
[2018-08-12 12:09] LABS: CREATININE 1.2 mg/dL (0.5-1.0); POTASSIUM 2.9 mmol/l (3.5-5.1)
--- NOTE | 2018-08-12 13:10 | NUR ---
Pt pivited to wheelchair with assist of one. No resp. distress noted. Pt transported to radiology deparment for chest xray. Pt tolerated procedure well.
--- NOTE | 2018-08-12 13:27 | NUR ---
Pt returned from radiology, No resp. distress noted. Pt inspected room for personal belonging which were taken to new room on the Med/Surg unit (278) up while she was in radiology. Pt stated "Nothing in the room is mine". Pt than transferred to Med/Surg room 278 via wheelchair.
--- NOTE | 2018-08-12 13:30 | NUR ---
PT ARRIVED FROM ICU VIA WHEELCHAIR BY STAFF. PT VOICES NO NEEDS OR COMPLAINTS AT THIS TIME. RESP EVEN AND UNLABORED. PT STABLE, PARTIAL R AMPUTATION TO R FOOT, PT AMBULATES WITH CANE. CANE IN ROOM BROUGHT FROM HOME. PT STATES SHE DOES NOT KNOW WHERE HER PRECAST WORKER IS, STATES SHE WAS "UPSTAIRS LAST NIGHT THEN WENT TO ICU" INFORMED PT THAT SHE WAS IN ER LAST NIGHT AND THEN DIRECTLY ADMITTED TO ICU. PT ADAMENT THAT SHE WAS ON SECOND FLOOR LAST NIGHT AND LEFT HER PRECAST WORKER. NOTIFIED STAFF IN ICU AND ER TO CHECK;ASSESSMENT COMPLETED. CALL LIGHT IN REACH,CONTINUE TO MONITOR.
--- NOTE | 2018-08-12 14:03 | NUR ---
BIG DATA HADOOP DEVELOPER FOUND IN ER, REPLACED BIG DATA HADOOP DEVELOPER TO PT. PT CONTENT CALL LIGHT IN REACH,CONTINUE TO MONITOR.
--- NOTE | 2018-08-12 14:23 | NUR ---
ENTERED ROOM, IVF WITH 20MEq KCL INITATED, PT IN AGREEMENT. CALL LIGHT IN REACH,CONTINUE TO MONITOR.
--- NOTE | 2018-08-12 19:50 | NUR ---
REPORT FROM XOCHILT ACEVEDO. PT RESTING IN BED. IVF INFUSING WITHOUT DIFFICULTY.IV SITE APPEARS HEALTHY. PT DENIES ANY PAIN OR DISCOMFORT. BSC IN ROOM. DISCUSSED PLAN OF CARE. ENCOURAGED PT TO CALL FOR ASSISTANCE. PT VERBALIZED UNDERSTANDING. CALL LIGHT WITHIN REACH. WILL CONTINUE TO MONITOR.
--- NOTE | 2018-08-12 23:16 | NUR ---
PT RESTING IN BED WITH EYES CLOSED. IVF INFUSING WITHOUT DIFFICULTY. CALL LIGHT WITHIN REACH.
[2018-08-13 04:37] VITALS: BP 112/59
--- NOTE | 2018-08-13 05:00 | NUR ---
EMS IV site discontinued, cath intact. No edema , no redness, voices no discomfort. Peripheral IV started. IV access obtained with #22 AutoGuard at Right Forearm with 1 IV stick attempts. Flushes easily with good blood return.
[2018-08-13 06:02] LABS: ALBUMIN 3.3 g/dL (3.2-5.0); ALKALINE PHOSPHATASE 54 u/l (38-126); ANION GAP 7 (6-22 (CALC)); BILIRUBIN, TOTAL 0.3 mg/dL (0.0-1.4); BUN 22 mg/dL (7-17); BUN/CREATININE RATIO 19 (12-20 (CALC)); CARBON DIOXIDE 30 mmol/l (22-30); CHLORIDE 104 mmol/l (95-108); CREATININE 1.1 mg/dL (0.5-1.0); GFR 51 ML/MIN (>=60 (CALC)); GFR FOR AFR.AMER. > 60 ML/MIN (>=60 (CALC)); POTASSIUM 3.4 mmol/l (3.5-5.1); SGOT/AST 12 u/l (14-36); SODIUM 138 mmol/l (137-146); TOTAL PROTEIN 5.7 g/dL (6.3-8.2)
--- NOTE | 2018-08-13 07:00 | NUR ---
REPORT RECEIVED FROM LEELA SHAFFER;PT RESTING IN SEMI FOWLERS POSITION;INTRODUCED SELF TO PT AND POC DISCUSSED;PT DENIES ANY CURRENT PAIN OR NEEDS;IV SITE INFUSING WELL TO RIGHT FOREARM;ALL SAFETY PRECAUTIONS IN PLACE WITH BED IN THE LOWEST POSITION AND CALL LIGHT IN REACH;WILL CONTINUE TO MONITOR
[2018-08-13 07:48] VITALS: BP 115/65
--- NOTE | 2018-08-13 07:48 | NUR ---
PT RESTING IN SEMI FOWLERS POSITION;ASSESSMENT COMPLETED AND VS OBTAINED;RESPIRATIONS EVEN AND UNLABORED ON RA,CLEAR LUNG SOUNDS;ABDOMEN SOFT ON PALPATION AND ACTIVE IN ALL 4 QUADRANTS;WEAK PEDAL PULSES;PARTIAL AMPUTEE NOTED TO RIGHT FOOT;ACCUCHECK 217, PT COVERED WITH NOVOLOG PER ORDER;#22G INFUSING D5 NS W 20MEQ OF K AT 125ML/HR PER ORDER,SITE APPEARS HEALTHY;PT DENIES ANY CURRENT NEEDS AND IS INSTUCTED TO CALL FOR ASSISTANCE IF NEEDED;FALL PRECAUTIONS IN PLACE WITH CALL LIGHT IN REACH;WILL CONTINUE TO MONITOR
--- NOTE | 2018-08-13 08:06 | NUR ---
AT BEDSIDE DISCUSSING POC.
[2018-08-13 08:44] VITALS: BP 115/65
--- NOTE | 2018-08-13 08:52 | NUR ---
DISCHARGE PLAN DISCUSSED AT THIS TIME, ALL QUESTIONS ANSWERED AND PT VERBALIZES UNDERSTANDING;IV SITE REMOVED WITH CATHETER INTACT.
--- NOTE | 2018-08-13 09:08 | NUR ---
Discharge instructions given. Patient verbalizes understanding of same. Discharged in stable condition via Wheelchair to Home with *Other. All belongings sent with pt. Pt wheelchaired downstairs for discharge in stable condition accompanied by candie vann;Marge called for pt transportation home.
--- NOTE | 2018-08-13 09:08 | NUR ---
IN TO SPEAK WITH PT REGARDING HER "COMPLAINTS" (PER DR VELIZ) PT DENIES ANY COMMENTS, QUESTIONS OR COMPLAINTS AT THIS TIME, ASKED 2 TIMES PT DENIED. PT STATES SHE IS JUST READY TO GO HOME. CAB WAS CALLED.
== END 2018-08-13 09:08 | disposition home or self-care (01) | DRG 641 ==
LOC: ED 16:36 → ED-I 18:36 → ED 19:13 → MS2 19:14 → ICU 19:14 → MS2 08-12 13:30
PROVIDERS: Emergency Medicine; ADMIT Internal Medicine Geriatric Medicine; ATTEND Internal Medicine Geriatric Medicine
DX: E83.52 Hypercalcemia (principal); T50.3X5A Adverse effect of electrolytic, caloric and water-balance agents, initial encounter; E83.41 Hypermagnesemia; I10 Essential (primary) hypertension; E11.9 Type 2 diabetes mellitus without complications; J44.9 Chronic obstructive pulmonary disease, unspecified; E89.0 Postprocedural hypothyroidism; G40.909 Epilepsy, unspecified, not intractable, without status epilepticus; E89.2 Postprocedural hypoparathyroidism; E83.51 Hypocalcemia; E83.42 Hypomagnesemia; F32.9 Major depressive disorder, single episode, unspecified; F17.210 Nicotine dependence, cigarettes, uncomplicated; F41.1 Generalized anxiety disorder; I48.91 Unspecified atrial fibrillation; I25.10 Atherosclerotic heart disease of native coronary artery without angina pectoris; K21.9 Gastro-esophageal reflux disease without esophagitis; Z87.11 Personal history of peptic ulcer disease; Z91.19 Patient's noncompliance with other medical treatment and regimen

== ENCOUNTER 2018-09-07 10:53 | Inpatient (IN) | payer MEDICARE ==
[~2018-09-07] VITALS: Ht 165.1 cm; Wt 69.9 kg
--- NOTE | 2018-09-07 11:05 | NUR ---
PT ARRIVED ON FLOOR VIA W/C ACCOMPANIED BY A VOLUNTEER; PT AMBULTED FROM W/C TO BATHROOM WITH STEADY GAIT USING A CANE; PT REFUSED HELP TO THE BATHROOM; WEIGHT OBTAINED; NON PRODUCTIVE COUGH NOTED; PT ORIENT TO ROOM AND CALL YANG SYSTEM; PT COMPLAIN OF BEING HUNGRY AND COLD; WARM BLANKETS PROVIDED; ASSURE PT LUNCH WILL BE HERE SOON; PT VOICED NO OTHER CONERNS;
[2018-09-07 11:20] VITALS: BP 95/47
[2018-09-07 11:49] LABS: HEMATOCRIT 39.7 % (37.0-47.0); HEMOGLOBIN 14.1 g/dl (12.0-16.0); IMMATURE GRANULOCYTES 0.4 % (0.0-5.0); MEAN CELL VOLUME 91.9 fL CALC (80.0-100.0); MEAN CORPUSCULAR HGB 32.6 pG CALC (26.0-32.0); MEAN CORPUSCULAR HGB CONC 35.5 g/L CALC (32.0-36.0); NEUT# 5.48 thou/uL (2.00-7.15); RED BLOOD COUNT 4.32 mill/uL (4.20-5.60); RED CELL DISTRI WIDTH 13.5 % (11.5-15.5)
[2018-09-07 12:03] LABS: ANION GAP 13 (6-22 (CALC)); BUN 14 mg/dL (7-17); BUN/CREATININE RATIO 19 (12-20 (CALC)); CARBON DIOXIDE 26 mmol/l (22-30); CHLORIDE 98 mmol/l (95-108); CREATININE 0.7 mg/dL (0.5-1.0); GFR > 60 ML/MIN (>=60 (CALC)); GFR FOR AFR.AMER. > 60 ML/MIN (>=60 (CALC)); SODIUM 132 mmol/l (137-146)
[2018-09-07 13:35] LABS: URINE BILIRUBIN - DIPSTICK NEGATIVE (NEGATIVE); URINE BLOOD DIPSTICK TRACE-INTACT (NEGATIVE); URINE COLOR YELLOW; URINE GLUCOSE - DIPSTICK >=1000 mg/dL (NEGATIVE); URINE KETONE NEGATIVE (NEGATIVE); URINE LEUK ESTERASE TRACE (NEGATIVE); URINE NITRITE - DIPSTICK NEGATIVE (Negative); URINE PH 7.5 (4.5-8.0); URINE PROTEIN - DIPSTICK NEGATIVE (NEG-TRACE); URINE UROBILINOGEN - DIPSTICK 0.2 E.U./dL (0.2)
[2018-09-07 15:25] VITALS: BP 112/60
--- NOTE | 2018-09-07 15:30 | NUR ---
PT LAYING IN BED WATCHING TV; PT HAD HER FEET SOAKED IN WARM WATER AND WASHED BY ORNAMENTAL RAIL INSTALLER; PT UP TO BSC SEVERAL TIMES, VOIDES CLEAR, YELLOW URINE; PT TALKING ON HER CELL PHONE SEVERAL TIMES; TELE IN PLACE; IVF INFUSING WITHOUT DIFFICULTY; PT VOICE NO CONCERNS; CALL YANG IN REACH. WILL CONTINUE TO MONITOR.
--- NOTE | 2018-09-07 15:46 | NUR ---
ENTERED ROOM PT STATES "THAT WATER ON OXYGEN MAKES ME COUGH AND MY EYES WATER" REMOVE WATER FROM 02; 02 2L REMAIN IN NOSTRILS; PT NOW TALKING ON THE PHONE;
--- NOTE | 2018-09-07 16:30 | NUR ---
ENTERED ROOM PT COMPLAIN OF LEG PAIN; DR JOSE ALFREDO SANDERSON DILAUDID FOR PAIN; PT UP SEVERAL TIMES TO BSC; VOIDES CLEAR, YELLOW URINE; VOICE NO OTHER COMPLAIN. CALL YANG IN REACH.
[2018-09-07 16:53] LABS: ANION GAP 13 (6-22 (CALC)); BUN 15 mg/dL (7-17); BUN/CREATININE RATIO 20 (12-20 (CALC)); CARBON DIOXIDE 24 mmol/l (22-30); CHLORIDE 101 mmol/l (95-108); CREATININE 0.8 mg/dL (0.5-1.0); GFR > 60 ML/MIN (>=60 (CALC)); GFR FOR AFR.AMER. > 60 ML/MIN (>=60 (CALC)); MAGNESIUM 1.3 mg/dL (1.6-2.3); POTASSIUM 3.9 mmol/l (3.5-5.1); SODIUM 133 mmol/l (137-146)
--- NOTE | 2018-09-07 17:19 | NUR ---
DR VELIZ AT BEDSIDE TO DISCUSS POC. PT SITTING UP IN BED WATCHING TV; RESP EVEN AND UNLABORED; NO S/S OF DISTRESS NOTED;
[2018-09-07 19:16] VITALS: BP 116/64
--- NOTE | 2018-09-07 21:04 | NUR ---
CALLED DR. VELIZ AND NOTIFIED HIM OF PT'S BS BEING 391 WITH NO NIGHT TIME COVERAGE AND THAT DAYSHIFT NURSE ADMINISTERED 15 UNITS OF LEVEMIR; NEW ORDERS RECEIVED AND TO BE CARRIED OUT;
--- NOTE | 2018-09-07 21:39 | NUR ---
ASSESSMENT COMPLETED; NO RESP DISTRESS NOTED; PT. DECLINES THE 02; REMOVED AT THIS TIME; ASSISTED ON AND OFF OF BSC WITH STBY ASSISTANCE; RIGHT FOOT PARTIALLY MISSING DUE TO PREVIOUS AMPUTATION WITH DISCOLARTION NOTED TO STUMP; INTACT; NO REDNESS NOTED; PT. C/O BACK AND LOGAN FEET PAIN; MEDICATED WITH ORDERED PRN DILAUDID AND ONE TIME DOSE OF INSULIN D/T ELEVATED SUGAR OF 391; SNACK PROVIDED; UPDATED ON POC; CALL LIGHT IS IN REACH; WILL CONTINUE TO MONITOR.
[2018-09-07 23:58] VITALS: BP 84/42; BP 98/43
--- NOTE | 2018-09-08 00:03 | NUR ---
NOTIFIED OF LOW B/P 98/43 AND OF PT. BEING ADMINISTERED DILAUDID PREVIOUSLY; NO NEW ORDERS GIVEN; PER MD; STILL OKAY TO GIVE DILAUDID WHEN DUE IF DIASTOLIC IS IN THE 90'S; WILL CONTINUE TO MONITOR.
[2018-09-08 04:05] VITALS: BP 96/50
--- NOTE | 2018-09-08 05:16 | NUR ---
PT. RESTING IN BED ON LEFT SIDE WITH EYES CLOSED; AWAKENED FOR AM MED; PO FLUIDS OFFERED. FRESH WATER GIVEN; ENCOURAGED TO CALL FOR ANY NEEDS; CALL LIGHT IS IN REACH.
[2018-09-08 05:45] LABS: HEMATOCRIT 37.3 % (37.0-47.0); HEMOGLOBIN 12.9 g/dl (12.0-16.0); IMMATURE GRANULOCYTES 0.5 % (0.0-5.0); MEAN CELL VOLUME 93.5 fL CALC (80.0-100.0); MEAN CORPUSCULAR HGB 32.3 pG CALC (26.0-32.0); MEAN CORPUSCULAR HGB CONC 34.6 g/L CALC (32.0-36.0); NEUT# 5.35 thou/uL (2.00-7.15); RED BLOOD COUNT 3.99 mill/uL (4.20-5.60); RED CELL DISTRI WIDTH 13.6 % (11.5-15.5)
[2018-09-08 06:16] LABS: ALKALINE PHOSPHATASE 58 u/l (38-126); ANION GAP 11 (6-22 (CALC)); BILIRUBIN, TOTAL 0.4 mg/dL (0.0-1.4); BUN 18 mg/dL (7-17); BUN/CREATININE RATIO 26 (12-20 (CALC)); CARBON DIOXIDE 27 mmol/l (22-30); CHLORIDE 103 mmol/l (95-108); CREATININE 0.7 mg/dL (0.5-1.0); GFR > 60 ML/MIN (>=60 (CALC)); GFR FOR AFR.AMER. > 60 ML/MIN (>=60 (CALC)); MAGNESIUM 1.6 mg/dL (1.6-2.3); POTASSIUM 4.5 mmol/l (3.5-5.1); SGOT/AST 18 u/l (14-36); SODIUM 136 mmol/l (137-146); TOTAL PROTEIN 5.8 g/dL (6.3-8.2)
[2018-09-08 06:22] LABS: ALBUMIN 3.3 g/dL (3.2-5.0)
--- NOTE | 2018-09-08 06:29 | NUR ---
NOTIFIED OF AM CALCIUM RESULTS BEING 5.9; NEW ORDERS RECEIVED AND TO BE CARRIED OUT.
[2018-09-08 06:34] LABS: TSH, 3RD GENERATION 1.31 uIU/mL (0.47 - 4.68)
--- NOTE | 2018-09-08 06:47 | NUR ---
NOTIFIED SUPERVISION OF NEED OF CALCIUM GLUCONATE PER EARNESTINE, LABORATORY SAMPLER, CHANTEL WILL BRING IT UP SHORTLY.
--- NOTE | 2018-09-08 06:55 | NUR ---
PER CHANTEL, SENIOR GRAPHIC DESIGNER, CALCIUM GLUCONATE IS UNAVAILABLE AT THIS TIME AND WILL HAVE TO AWAIT HOUSE PHARMACY TO ARRIVE THIS AM FOR MEDICATION; MESSAGED RELAYED TO DAYSHIFT NURSE, AND ORDER FAXED TO [facility].
--- NOTE | 2018-09-08 07:03 | NUR ---
PT REPORT RECEIVED FROM LEELA AMTSON. PT RESTING IN BED. NO S/S OF DISTRESS. CALL LIGHT IN REACH. WILL CONTINUE TO MONITOR
--- NOTE | 2018-09-08 07:35 | NUR ---
PT A/O X3. SPEECH IS CLEAR. RESP EVEN AND UNLABORED. NONPRODUCTIVE COUGH. O2 @2L AT BEDSIDE. TELE IN PLACE. BOWEL SOUNDS ACTIVE X4. STRONG RADIAL PULSES. #22 RFA D5 1/2 NS @100. SITE APPEARS HEALTHY. STRONG LT PEDAL PULSE. RT PEDAL PULSES UNABLE TO BE PALPATATED DUE TO RT FOOT AMPUTE. POPLITEAL PULSES PRESENT. SKIN INTACT. PT DENIES ANY PAIN OR NEEDS. SAFETY PRECAUTIONS IN PLACE. CALL LIGHT IN REACH. BSC NEAR BED. WILL CONTINUE TO MONITOR
[2018-09-08 07:39] VITALS: BP 109/58
--- NOTE | 2018-09-08 08:51 | NUR ---
DR. VELIZ IN TO SEE PT
[2018-09-08 11:20] VITALS: BP 111/64
--- NOTE | 2018-09-08 12:32 | NUR ---
PT LAYING IN BED EATING LUNCH. NO C/O PAIN OR NEEDS AT THIS TIME. BSC NEAR BED. CALL LIGHT IN REACH. WILL CONTINUE TO MONITOR
[2018-09-08 15:00] VITALS: BP 106/59
--- NOTE | 2018-09-08 15:55 | NUR ---
ASSISTED PT TO BSC. PT C/O BACK PAIN. 7 OUT OF 10 ON PAIN SCALE. MEDICATED W/ 0.5 MG DILAUDID. REPOSITIONED IN BED FOR COMFORT. PT REQUESTING COFFEE. CALL LIGHT IN REACH. WILL CONTINUE TO MONITOR
[2018-09-08 19:12] VITALS: BP 103/57
--- NOTE | 2018-09-08 20:12 | NUR ---
PT IS REQUESTING TWO CONTAINERS OF CHOCOLATE ICECREAM, MILK AND COFFEE. PT ADVISED THAT WE NEED TO CHECK HER SUGAR BEFORE PROVIDING SNACKS. WILL FOLLOW-UP
--- NOTE | 2018-09-08 20:45 | NUR ---
PT ACCU-CHECK IS 317/PHYSICIAN NOTIFIED/ORDERS RECEIVED. PT IS STILL REQUESTING ICECREAM AND MILK.
--- NOTE | 2018-09-08 21:45 | NUR ---
PT MEDICATED ORDERS PROVIDE, PT IS IN BED LAYING ON SIDE. I ATTEMPTED TO ASSESS PT, SHE C/O HAVING TO HAVE HER LUNGS ASSESSED, REFUSED TO TURN FOR HER ABD TO BE ASSESSED, NO NOTED EDEMA, SKIN INTACT, LOCX3, PT APPEARS VERY AGITATED. C/O NO BM FOR TWO DAYS/OFFERED WARM PRUNE JUICE/WILL CHECK TO SEE IF AVAILABLE AND PROVIDE. UPON PT LETTING ME CHECK HER ABD/SOFT NON-TENDER W/ACTIVE BOWEL SOUNDS.
--- NOTE | 2018-09-08 22:05 | NUR ---
PT IS REQUESTING COFFE/DECAF COFFEE PROVIDED BLACK. PT IS ALSO REQUESTING KRISTEN CRACKERS " MANY WE CAN BRING" PROVIDED TWO PACKS.
--- NOTE | 2018-09-08 23:45 | NUR ---
PT MEDICATED FOR PAIN. CALL LIGHT AT SIDE.
[2018-09-08 23:54] VITALS: BP 98/57
--- NOTE | 2018-09-09 03:10 | NUR ---
PT APPEARS TO BE SLEEPING AT THIS TIME. CALL LIGHT AT BEDSIDE AND NO S/S OF DISTRESS.
[2018-09-09 05:30] VITALS: BP 110/61
--- NOTE | 2018-09-09 07:10 | NUR ---
PT REPORT RECIEVED FROM LEELA TATE. PT RESTING. NO S/S OF DISTRESS. CALL LIGHT IN REACH. WILL CONTINUE TO MONITOR
[2018-09-09 07:43] LABS: ALBUMIN 3.2 g/dL (3.2-5.0); ALKALINE PHOSPHATASE 58 u/l (38-126); ANION GAP 12 (6-22 (CALC)); BILIRUBIN, TOTAL 0.4 mg/dL (0.0-1.4); BUN 16 mg/dL (7-17); BUN/CREATININE RATIO 25 (12-20 (CALC)); CARBON DIOXIDE 26 mmol/l (22-30); CHLORIDE 102 mmol/l (95-108); CREATININE 0.6 mg/dL (0.5-1.0); GFR > 60 ML/MIN (>=60 (CALC)); GFR FOR AFR.AMER. > 60 ML/MIN (>=60 (CALC)); MAGNESIUM 1.5 mg/dL (1.6-2.3); POTASSIUM 5.1 mmol/l (3.5-5.1); SGOT/AST 14 u/l (14-36); SODIUM 135 mmol/l (137-146); TOTAL PROTEIN 5.7 g/dL (6.3-8.2)
[2018-09-09 08:32] VITALS: BP 116/69
--- NOTE | 2018-09-09 08:32 | NUR ---
PT A/O X3. SPEECH IS CLEAR. RESP EVEN AND UNLABORED. LUNG SOUNDS CLEAR. TELE IN PLACE. O2 @2L AT BEDSIDE. BOWEL SOUNDS ACTIVE X4. STRONG RADIAL PULSES. #22 RFA D5 1/2 NS @20. SITE APPEARS HEALTHY. STRONG LT PEDAL PULSE. NONPALPABLE RT PEDAL PULSE DUE TO PARTIAL RT FOOT AMPUTATION. PRESENT POPLITEAL PULSE. PT HAS SOME ABRASIONG TO BLE. SKIN INTACT. NO C/O PAIN OR NEEDS. POC DISCUSSED. SAFETY PRECAUTIONS IN PLACE. CALL LIGHT IN REACH. WILL CONTINUE TO MONITOR.
[2018-09-09 11:48] VITALS: BP 130/68
--- NOTE | 2018-09-09 11:53 | NUR ---
PT IN BED EATING LUNCH. TELE IN PLACE. NO C/O PAIN AT THIS TIME. BSC NEAR BED. CALL LIGHT IN REACH. WILL CONTINUE TO MONITOR.
[2018-09-09 16:00] VITALS: BP 136/73
--- NOTE | 2018-09-09 16:07 | NUR ---
PT RESTING IN BED. RESP EVEN AND UNLABORED. TELE IN PLACE. NO C/O PAIN OR NEEDS. CALL LIGHT IN REACH. WILL CONTINUE TO MONITOR.
[2018-09-09 19:21] VITALS: BP 112/55
--- NOTE | 2018-09-09 19:34 | NUR ---
PT IS IN BED W/LIGHTS OFF AND TV ON. NO S/O DISTRESS, CALL LIGHT AT SIDE.
--- NOTE | 2018-09-09 23:38 | NUR ---
PT MEDICATED FOR PAIN / IN LOWER BACK. BSC EMPTIED 700CC CLEAR YELLOW URINE. PT DENIES ANY OTHER NEEDS. CALL LIGHT AT SIDE.
[2018-09-10] VITALS: BP 87/46
--- NOTE | 2018-09-10 02:40 | NUR ---
PT APPEARS TO BE SLEEPING AT THIS TIME, CALL LIGHT IS W/IN REACH. NO S/O DISTRESS NOTED.
[2018-09-10 04:28] VITALS: BP 119/60
--- NOTE | 2018-09-10 06:16 | NUR ---
PT MEDICATED ORDERS PROVIDE. PT WAS SLEEPING, BUT AWOKE TO MY VOICE. DENIES ANY OTHER NEEDS AT THIS TIME. IV FLUSHED/SITE APPEARS HEALTHY. CALL LIGHT AT BEDSIDE.
[2018-09-10 06:47] LABS: HEMATOCRIT 34.5 % (37.0-47.0); IMMATURE GRANULOCYTES 0.4 % (0.0-5.0); MEAN CORPUSCULAR HGB 32.7 pG CALC (26.0-32.0); MEAN CORPUSCULAR HGB CONC 34.8 g/L CALC (32.0-36.0); NEUT# 5.65 thou/uL (2.00-7.15); RED BLOOD COUNT 3.67 mill/uL (4.20-5.60); RED CELL DISTRI WIDTH 13.3 % (11.5-15.5)
[2018-09-10 07:27] LABS: ALBUMIN 3.1 g/dL (3.2-5.0); ALKALINE PHOSPHATASE 54 u/l (38-126); ANION GAP 12 (6-22 (CALC)); BILIRUBIN, TOTAL 0.4 mg/dL (0.0-1.4); BUN 18 mg/dL (7-17); BUN/CREATININE RATIO 28 (12-20 (CALC)); CARBON DIOXIDE 24 mmol/l (22-30); CHLORIDE 103 mmol/l (95-108); CREATININE 0.6 mg/dL (0.5-1.0); GFR > 60 ML/MIN (>=60 (CALC)); GFR FOR AFR.AMER. > 60 ML/MIN (>=60 (CALC)); POTASSIUM 4.9 mmol/l (3.5-5.1); SGOT/AST 10 u/l (14-36); SODIUM 133 mmol/l (137-146); TOTAL PROTEIN 5.7 g/dL (6.3-8.2)
[2018-09-10 08:37] VITALS: BP 117/65
--- NOTE | 2018-09-10 08:37 | NUR ---
PT RESTING IN BED. DR VELIZ AT BEDSIDE. DISCUSS POC AND D/C. PT READY TO GO. 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 LUNG SOUNDS CLEAR/DIMINISHED, HR NORMAL, BS ACTIVE. NO SWELLING OR EDEMA NOTED. CALL YANG IN REACH. WILL CONTINUE TO MONITOR.
--- NOTE | 2018-09-10 09:20 | NUR ---
ATTEMTPED TO PRINT DISCHARGE, DISCHARGE MED-REC INCOMPLETE. ATTEMPTED TO CALL DR VELIZ TO COMPLETE DISCHARGE, NO ANSWER. PATIENT REFUSED TO WAIT FOR RETURN CALL TO CONFIRM DISCHARGE INSTRUCTIONS. DISCUSSED PORTION OF DISCHARGE INSTRUCTIONS THAT ARE COMPLETE- FOLLOW UP IN TWO WEEKS. NO MED CHANGES. INSTRUCTED PT TO STOP BY HIS OFFICE IF SHE NEEDED SCRIPT FOR LOMOTIL, PT STATES SHE WILL FOLLOW UP WITH HIM IN 2 WEEKS AND GET IT THEN IF SHE STILL NEEDS IT. PT LEFT WITH ALL BELONGINGS AND STEADY GAIT.
== END 2018-09-10 09:21 | disposition home or self-care (01) | DRG 641 ==
LOC: MS2 10:53
PROVIDERS: ADMIT Internal Medicine Geriatric Medicine; ATTEND Internal Medicine Geriatric Medicine
DX: E83.51 Hypocalcemia (principal); E87.1 Hypo-osmolality and hyponatremia; E89.0 Postprocedural hypothyroidism; E89.2 Postprocedural hypoparathyroidism; I10 Essential (primary) hypertension; J44.9 Chronic obstructive pulmonary disease, unspecified; E83.42 Hypomagnesemia; E86.0 Dehydration; E11.51 Type 2 diabetes mellitus with diabetic peripheral angiopathy without gangrene; T38.1X6A Underdosing of thyroid hormones and substitutes, initial encounter; T50.3X6A Underdosing of electrolytic, caloric and water-balance agents, initial encounter; F32.9 Major depressive disorder, single episode, unspecified; F17.200 Nicotine dependence, unspecified, uncomplicated; R19.7 Diarrhea, unspecified; Z91.128 Patient's intentional underdosing of medication regimen for other reason
CPT/HCPCS: G0378; G0379

== ENCOUNTER 2018-10-29 17:27 | Observation (INO) | payer MEDICARE ==
[~2018-10-29] VITALS: Ht 175.3 cm; Wt 74.0 kg
--- NOTE | 2018-10-29 17:38 | NUR ---
PT RESTING QUIETLY ON STRETCHER
[2018-10-29 17:56] LABS: HEMATOCRIT 39.1 % (37.0-47.0); IMMATURE GRANULOCYTES 0.3 % (0.0-5.0); MEAN CELL VOLUME 91.4 fL CALC (80.0-100.0); MEAN CORPUSCULAR HGB 32.7 pG CALC (26.0-32.0); MEAN CORPUSCULAR HGB CONC 35.8 g/L CALC (32.0-36.0); NEUT# 5.22 thou/uL (2.00-7.15); RED BLOOD COUNT 4.28 mill/uL (4.20-5.60); RED CELL DISTRI WIDTH 12.9 % (11.5-15.5)
[2018-10-29 18:03] LABS: ANION GAP 18 (6-22 (CALC)); BUN 14 mg/dL (7-17); BUN/CREATININE RATIO 20 (12-20 (CALC)); CARBON DIOXIDE 23 mmol/l (22-30); CHLORIDE 95 mmol/l (95-108); CREATININE 0.7 mg/dL (0.5-1.0); GFR > 60 ML/MIN (>=60 (CALC)); GFR FOR AFR.AMER. > 60 ML/MIN (>=60 (CALC)); POTASSIUM 3.9 mmol/l (3.5-5.1); SODIUM 131 mmol/l (137-146)
--- NOTE | 2018-10-29 18:34 | NUR ---
PATIENT ASSISTED ONTO BSC BY ED STAFF FOR BM.
--- NOTE | 2018-10-29 18:37 | NUR ---
AT BEDSIDE TO DISCUSS RESULTS.
--- NOTE | 2018-10-29 18:43 | NUR ---
REPORT GIVEN TO LEELA WHITING. INFORMED OF NEW MED ORDERS AND MED REC NEEDING TO BE COMPLETED. PATIENT CURRENTLY SPEAKING ON PHONE, NO SIGN OF SEIZURE LIKE ACTIVITY SINCE ARRIVAL TO ED. CARE RELINQUISHED.
[2018-10-29 18:44] LABS: ALBUMIN 4.1 g/dL (3.2-5.0); SGOT/AST 35 u/l (14-36)
--- NOTE | 2018-10-29 19:46 | NUR ---
Admission Note Report Given to: LEELA RUIZ Transported by: Wheelchair X Stretcher Transported with: X Nurse Transporter X Patent IV O2 X Patient Educator SEIZURE PADS IN PLACE AND CALCIUM INFUSING AT 50ML/HR
[2018-10-29 19:50] VITALS: BP 113/70
--- NOTE | 2018-10-29 20:00 | NUR ---
PATIENT ARRIVED FROM ER VIA STRETCHER WITH ER STAFF IN ATTENDANCE. PATIENT ASSISTED TO BED. IV CALIUM GLUCANATE INFUSING ORDERED AT 50CC/HR VIA LEFT AC SITE. SITE APPEARS [facility] AT THIS TIME. TELE MONITOR IN PLACE. ORIENTED PATIENT TO ROOM AND SURROUNDIONGS. SAFETY PRECAUTIONS REVIEWED WITH PATIENT. PATIENT PROVIDED DRINK AND SNACK PER PATIENT REQUEST. INSTRUCTED ON USE OF NURSE CALL LIGHT SYSTEM, TV REMOTE AND PHONE. CALL LIGHT IN REACH. WILL CONT TO MONITOR.
--- NOTE | 2018-10-29 20:30 | NUR ---
PT RESTING IN BED. ALERT AND ORIENTED. ASSESSMENT COMPLETED. RESPIRATIONS EVEN AND UNLABORED ON RA, LUNGS SOUND CLEAR. IV # 18 LAC, PATENT, APPEARS HEALTHY. TELE MONITOR IN PLACE. PT ORIENTED TO ROOM AND CALL YANG. PT REPORTS HAVING PAIN OF A 5 OUT OF TEN, PROVIDED PT WITH WARM PACK, PT TO BE MEDICATED. SAFETY PRECAUTIONS IN PLACE. CALL LIGHT WITHIN REACH. WILL CONTINUE TO MONITOR.
--- NOTE | 2018-10-29 23:00 | NUR ---
2200-SPOKE WITH DR. VELIZ AND [facility]ARM-NEW ORDERS RECIEVED. CALCIUM GLUCONATE INFUSION STOPPED. IVF NS HUNG AND INFUSING AT 100CC/HR. PATIENT MEDICATED WITH OS-ELLI 1000MG PO ORDERED. MAG LEVEL AND CALCIUM DRAWN AT 2250. BS--328 AND COVERED PER SLIDING SCALE COVERAGE PROTOCOL. HS SNACK PROVIDED. WILL CONT TO MONITOR. 0000-MAG SULFATE 2GM IV HUNG AT 25CC/HR ORDERED. PATIENT RESTING IN BED-SAFETY PRECAUTIONS REINFORCED. CALL LIGHT IN REACH. WILL CONT TO MONITOR.
--- NOTE | 2018-10-29 23:12 | NUR ---
PT RESTING IN BED. PROVIDED PT WITH A SNACK PER REQUEST. NO SIGNS OR SYMPTOMS OF DISTRESS. SAFETY PRECAUTIONS IN PLACE. WILL CONTINUE TO MONITOR.
--- NOTE | 2018-10-29 23:26 | NUR ---
CALL RECEIVED FROM [facility] IN THE LAB ABOUT CRITICAL CA LEVEL OF 5.1, TREATMENT IN PROGRESS. WILL CONTINUE TO MONITOR.
[2018-10-29 23:48] VITALS: BP 95/53
--- NOTE | 2018-10-30 04:51 | NUR ---
PT CALLED TO REPORT HAVING AN ACCIDENTAL BM IN BED AFTER COUGHING AND NEEDING ASSISTANCE GETTING CLEANED UP. SOLVENT RECOVERER ASSISTED PT UP TO BSC, WHILE DOING SO PT REMOVED IV. APPLIED PRESSURE BANDAGE TO STOP BLEEDING. PT AMBULATED TO THE SHOWER TO BE CLEANED UP. BEDDING CHANGED. PT ASSISTED BACK INTO BED. TELE PLACED. NEW IV STARTED BY SORIN SWNESON. IV #22 RFA INFUSSING, MAGNESIUM SULFATE @ 25 ML/HR. PT DENIES ANY FURTHER NEEDS AT THIS TIME. SAFETY PRECAUTIONS IN PLACE. WILL CONTINUE TO MONITOR.
--- NOTE | 2018-10-30 05:00 | NUR ---
MAG SULFATE COMPLETED. NEW ORDER FOR MAG LEVEL ORDERED FOR 0900-4HOURS AFTER INFUSION COMPLETED. CALCIUM GLUCONATE RESTARTED ORDERED VIA RIGHT FOREARM SITE AT 50CC/HR. SITE REMAINS HEALTHY AT THIS TIME. PATIENT APPEARS SLEEPING WITH EYES CLOSED. TELE MONITOR IN PLACE. WILL CONT TO MONITOR.
[2018-10-30 05:01] VITALS: BP 104/58
[2018-10-30 06:07] LABS: HEMATOCRIT 39.6 % (37.0-47.0); HEMOGLOBIN 14.2 g/dl (12.0-16.0); IMMATURE GRANULOCYTES 0.4 % (0.0-5.0); MEAN CELL VOLUME 91.9 fL CALC (80.0-100.0); MEAN CORPUSCULAR HGB 32.9 pG CALC (26.0-32.0); MEAN CORPUSCULAR HGB CONC 35.9 g/L CALC (32.0-36.0); NEUT# 9.88 thou/uL (2.00-7.15); RED BLOOD COUNT 4.31 mill/uL (4.20-5.60); RED CELL DISTRI WIDTH 12.6 % (11.5-15.5)
[2018-10-30 06:14] LABS: ALBUMIN 3.8 g/dL (3.2-5.0); ALKALINE PHOSPHATASE 74 u/l (38-126); ANION GAP 15 (6-22 (CALC)); BILIRUBIN, TOTAL 0.4 mg/dL (0.0-1.4); BUN 14 mg/dL (7-17); BUN/CREATININE RATIO 24 (12-20 (CALC)); CARBON DIOXIDE 25 mmol/l (22-30); CHLORIDE 101 mmol/l (95-108); CREATININE 0.6 mg/dL (0.5-1.0); GFR > 60 ML/MIN (>=60 (CALC)); GFR FOR AFR.AMER. > 60 ML/MIN (>=60 (CALC)); POTASSIUM 3.3 mmol/l (3.5-5.1); SGOT/AST 25 u/l (14-36); SODIUM 137 mmol/l (137-146); TOTAL PROTEIN 6.3 g/dL (6.3-8.2)
--- NOTE | 2018-10-30 06:33 | NUR ---
RECIEVED CALL FROM [facility] IN LAB WITH CA-5.7. TREATMENT FOR HYPOCALEMIA IN PROGRESS. DR. JOSE ALFREDO MATA.
--- NOTE | 2018-10-30 07:00 | NUR ---
SHIDR CHANGE REPORT, PT AWAKE ALERT AND ORIENTED RESTING IN BED, NO C/O DISCOMFORT AT THIS TIME, IVF INFUSING, CALL YANG IN REACH. CALCIUM GLUCONATE COMPLETED @ 0745, DR VELIZ HERE ROUNDING AND ORDERED ANOTHER 2 GRAMS IV AND STATED WILL CHECK LABS IN AM. LAB HAD ALREADY BEEN COLLECTED FOR MG LEVEL AND CA LEVEL.
[2018-10-30 07:44] VITALS: BP 111/53
[2018-10-30 11:04] VITALS: BP 121/64
--- NOTE | 2018-10-30 12:00 | NUR ---
RESTING IN BED, AROUSED FOR MEAL SERVED ON TABLE AND GOT UP AND ATE, NEEDS ADDRESSED.
[2018-10-30 15:14] VITALS: BP 106/50
--- NOTE | 2018-10-30 19:30 | NUR ---
PATIENT RESTING IN BED-AWAKE ALERT AND ORIENTEDX3. TELE MONITOR IN PLACE. IVF NS PATENT AND INFUSING AT 100CC/HR VIA RIGHT FOREARM. SITE IS HEALTHY AT THIS TIME. SEIZURE PRECAUTIONS IN PLACE AND SIDERAILS ARE PADDED. SAFETY PRECAUTIONS REINFORCED. CALL LIGHT IN REACH. WILL CONT TO MONITOR.
[2018-10-30 19:55] VITALS: BP 137/69
[2018-10-31 00:10] VITALS: BP 113/52
--- NOTE | 2018-10-31 00:45 | NUR ---
PATIENT UP TO BSC X1 AND INCONT OF STOOL X1. STATES THAT IT JUST RUNS OUT OF HER WHEN SHE IS COUGHING. COUGH IS NON-PRODUCTIVE. [id number] WITH NOVALOG 7UNITS PER SLIDING SCALE COVERAGE PROTOCOL. SAFETY PRECAUTIONS AND SEIZURE PRECAUTIONS IN PLACE. CALL LIGHT IN REACH. WILL CONT TO MONITOR.
--- NOTE | 2018-10-31 00:51 | NUR ---
PATIENT RESTING IN BED AT THIS TIME-WATCHING TV. INCONT OF STOOL AGAIN IN BED. ASSISTED WITH PERSONEL CARE. TELE REMAINS IN PLACE. IVF PATENT AND INFUSING AT 100CC/HR. SITE IS HEALTHY. CALL LIGHT IN REACH. SAFETY PRECAUTIONS REINFORCED. WILL CONT TO MONITOR.
--- NOTE | 2018-10-31 02:30 | NUR ---
PATIENT CALLED FOR ASSIST TO BSC TO VOID AND THEN BACK TO BED. VOIDING QS. CALL LIGHT IN REACH. WILL CONT TO MONITOR.
[2018-10-31 04:25] VITALS: BP 107/64
[2018-10-31 04:30] VITALS: BP 87/44
[2018-10-31 06:18] LABS: HEMATOCRIT 37.5 % (37.0-47.0); HEMOGLOBIN 13.1 g/dl (12.0-16.0); IMMATURE GRANULOCYTES 0.3 % (0.0-5.0); MEAN CORPUSCULAR HGB 32.8 pG CALC (26.0-32.0); MEAN CORPUSCULAR HGB CONC 34.9 g/L CALC (32.0-36.0); NEUT# 4.08 thou/uL (2.00-7.15); RED BLOOD COUNT 3.99 mill/uL (4.20-5.60); RED CELL DISTRI WIDTH 12.7 % (11.5-15.5)
[2018-10-31 06:29] LABS: ALBUMIN 3.5 g/dL (3.2-5.0); ALKALINE PHOSPHATASE 63 u/l (38-126); ANION GAP 14 (6-22 (CALC)); BILIRUBIN, TOTAL 0.4 mg/dL (0.0-1.4); BUN 13 mg/dL (7-17); BUN/CREATININE RATIO 19 (12-20 (CALC)); CALCULATED LDLCHOLESTEROL 58 mg/dL (62-129 (CALC)); CARBON DIOXIDE 24 mmol/l (22-30); CHLORIDE 103 mmol/l (95-108); CHOLESTEROL HDL RATIO 1.8 (<4.4 (CALC)); CREATININE 0.7 mg/dL (0.5-1.0); GFR > 60 ML/MIN (>=60 (CALC)); GFR FOR AFR.AMER. > 60 ML/MIN (>=60 (CALC)); HDL CHOLESTEROL 86 mg/dL (>=40); POTASSIUM 3.8 mmol/l (3.5-5.1); SGOT/AST 23 u/l (14-36); SODIUM 136 mmol/l (137-146); TOTAL CHOLESTEROL 157 mg/dl (0-199); TOTAL PROTEIN 5.9 g/dL (6.3-8.2); TOTAL TRIGLYCERIDES 71 mg/dl (30-149); VLDL CHOLESTROL 14 mg/dl (2-49 (CALC))
--- NOTE | 2018-10-31 07:15 | NUR ---
REPORT RECEIVED FROM LEELA RUIZ;PT APPEARS TO BE SLEEPING IN SEMI FOWLERS POSITION;RESPIRATIONS EVEN AND UNLABORED ON RA;NO S/S OF DISTRESS NOTED AT THIS TIME;TELE MONITORING IN PLACE;FALL PRECAUTIONS NOTED WITH BED IN THE LOWEST POSITION AND CALL LIGHT IN REACH;WILL CONTINUE TO MONITOR
--- NOTE | 2018-10-31 08:41 | NUR ---
AT BEDSIDE DISCUSSING POC INCLUDING DISCHARGE HOME.
[2018-10-31 08:55] VITALS: BP 134/73
--- NOTE | 2018-10-31 08:55 | NUR ---
PT RESTING IN SEMI FOWLERS POSITION,EAGER TO GET HOME;VS OBTAINED AND ASSESSMENT COMPLETED;RESPIRATIONS EVEN AND UNLABORED ON RA,CLEAR LUNG SOUNDS NOTED;ABDOMEN SOFT ON PALPATION AND ACTIVE IN ALL 4 QUADRANTS;#22G TO RIGHT FOREARM INFUSING NS @ 100ML/HR WITH EASE,SITE APPEARS HEALTHY;TELE MONITORING IN PLACE;RIGHT PARTIAL FOOT AMPUTEE NOTED, SKIN INTACT;PT DENIES ANY ADDITIONAL NEEDS AT THIS TIME AND IS ENCOURAGED TO CALL FOR ASSISTANCE IF NEEDED;FALL PRECAUTIONS IN PLACE;CALL LIGHT IN REACH;WILL CONTINUE TO MONITOR
--- NOTE | 2018-10-31 09:19 | NUR ---
ALL DISCHARGE INSTRUCTIONS PROVIDED AT THIS TIME;IV SITE REMOVED WITH CATHETER INTACT;PT ENCOURAGED TO TAKE ALL HER HOME MEDICATION PRESCRIBED;DENIES ANY ADDITIONAL NEEDS OR QUESTIONS AT THIS TIME;WHEELCHAIR TO BE PROVIDED FOR DISCHARGE HOME.
--- NOTE | 2018-10-31 09:23 | NUR ---
Discharge instructions given. Patient verbalizes understanding of same. Discharged in stable condition via Wheelchair to Home with friend. All belongings sent with pt. Pt transferred to lobby via in stable condition accompanied by volunteer and friend.
== END 2018-10-31 09:24 | disposition home or self-care (01) ==
LOC: ED 17:27 → ED-I 18:17 → ED 18:17 → ED-I 18:27 → ED 18:47 → MS2 18:48
PROVIDERS: Family Medicine; ADMIT Internal Medicine Geriatric Medicine; ATTEND Internal Medicine Geriatric Medicine
DX: E83.51 Hypocalcemia (principal); G40.909 Epilepsy, unspecified, not intractable, without status epilepticus; E11.9 Type 2 diabetes mellitus without complications; I10 Essential (primary) hypertension; F32.9 Major depressive disorder, single episode, unspecified; F41.9 Anxiety disorder, unspecified; E89.0 Postprocedural hypothyroidism; E89.2 Postprocedural hypoparathyroidism; J44.9 Chronic obstructive pulmonary disease, unspecified; I48.91 Unspecified atrial fibrillation; I25.10 Atherosclerotic heart disease of native coronary artery without angina pectoris; K21.9 Gastro-esophageal reflux disease without esophagitis; K27.9 Peptic ulcer, site unspecified, unspecified as acute or chronic, without hemorrhage or perforation; M19.90 Unspecified osteoarthritis, unspecified site; T50.3X6A Underdosing of electrolytic, caloric and water-balance agents, initial encounter; E83.42 Hypomagnesemia; I95.9 Hypotension, unspecified; E86.0 Dehydration; E87.1 Hypo-osmolality and hyponatremia; F17.200 Nicotine dependence, unspecified, uncomplicated; Z91.11 Patient's noncompliance with dietary regimen
CPT/HCPCS: G0378; J3475

== ENCOUNTER → 2018-11-07 | Outpatient (REF) | payer MEDICARE ==
[~2018-11-07] MED LIST changes: +CALCIUM 500+D 51 TAB PO; +FISH OIL 1000 M1 CAP PO; +FUROSEMIDE40 MG PO; +LEVEMIR FL100 UNIT/M SC; +MAGNESIUM 250 M1 TAB PO; +METFORMIN HCL1000 MG PO; +VITAMIN D31000 UNI1 PO
[2018-11-07 08:10] LABS: IMMATURE GRANULOCYTES 0.3 % (0.0-5.0); MEAN CELL VOLUME 91.2 fL CALC (80.0-100.0); MEAN CORPUSCULAR HGB 32.2 pG CALC (26.0-32.0); MEAN CORPUSCULAR HGB CONC 35.4 g/L CALC (32.0-36.0); NEUT# 5.79 thou/uL (2.00-7.15); RED BLOOD COUNT 4.87 mill/uL (4.20-5.60); RED CELL DISTRI WIDTH 12.2 % (11.5-15.5)
[2018-11-07 08:23] LABS: HEMATOCRIT 44.4 % (37.0-47.0); HEMOGLOBIN 15.7 g/dl (12.0-16.0)
[2018-11-07 08:33] LABS: ALKALINE PHOSPHATASE 87 u/l (38-126); BILIRUBIN, TOTAL 0.7 mg/dL (0.0-1.4); BUN 17 mg/dL (7-17); BUN/CREATININE RATIO 21 (12-20 (CALC)); CREATININE 0.8 mg/dL (0.5-1.0); GFR > 60 ML/MIN (>=60 (CALC)); GFR FOR AFR.AMER. > 60 ML/MIN (>=60 (CALC)); MAGNESIUM 1.8 mg/dL (1.6-2.3); SGOT/AST 14 u/l (14-36); SODIUM 132 mmol/l (137-146)
[2018-11-07 08:57] LABS: ALBUMIN 4.8 g/dL (3.2-5.0); ANION GAP 14 (6-22 (CALC)); CARBON DIOXIDE 33 mmol/l (22-30); CHLORIDE 89 mmol/l (95-108); TOTAL PROTEIN 7.5 g/dL (6.3-8.2)
== END | disposition home or self-care (01) ==
LOC: LAB 07:35
PROVIDERS: ATTEND Internal Medicine Geriatric Medicine
DX: E03.9 Hypothyroidism, unspecified (principal); E11.9 Type 2 diabetes mellitus without complications; E83.42 Hypomagnesemia; E03.0 Congenital hypothyroidism with diffuse goiter; Z12.11 Encounter for screening for malignant neoplasm of colon; I10 Essential (primary) hypertension
CPT/HCPCS: G0328

== ENCOUNTER 2018-11-29 19:16 | Observation (INO) | payer MEDICARE ==
[~2018-11-29] VITALS: Ht 175.3 cm; Wt 70.0 kg
[~2018-11-29 19:16] MED LIST changes: -CALCIUM 500+D 51 TAB PO; -FISH OIL 1000 M1 CAP PO; -FUROSEMIDE40 MG PO; -LEVEMIR FL100 UNIT/M SC; -MAGNESIUM 250 M1 TAB PO; -METFORMIN HCL1000 MG PO; -VITAMIN D31000 UNI1 PO
--- NOTE | 2018-11-29 19:19 | NUR ---
BY EMS TO ROOM 14
--- NOTE | 2018-11-29 19:20 | NUR ---
HEMATOMA TO RIGHT SIDE OF FOREHEAD, SKIN ABRASIONS TO LOGAN ELBOWS.
--- NOTE | 2018-11-29 19:59 | NUR ---
ADVISED PT THAT SHE HAS TO STAY IN BED, CAN NOT GET UP AND NEEDS TO LEAVE CCOLLAR ON. PT KEEPS SAYING SHE WANTS UP. WARM BLANKETS GIVEN. SIDE RAILS UPS, CALL LIGHT WITHIN REACH.
[2018-11-29 20:11] LABS: HEMATOCRIT 35.6 % (37.0-47.0); HEMOGLOBIN 12.6 g/dl (12.0-16.0); IMMATURE GRANULOCYTES 0.3 % (0.0-5.0); MEAN CORPUSCULAR HGB 32.2 pG CALC (26.0-32.0); MEAN CORPUSCULAR HGB CONC 35.4 g/L CALC (32.0-36.0); NEUT# 4.58 thou/uL (2.00-7.15); RED BLOOD COUNT 3.91 mill/uL (4.20-5.60); RED CELL DISTRI WIDTH 12.5 % (11.5-15.5)
[2018-11-29 20:26] LABS: ALBUMIN 4.1 g/dL (3.2-5.0); ALKALINE PHOSPHATASE 62 u/l (38-126); ANION GAP 14 (6-22 (CALC)); BILIRUBIN, TOTAL 0.3 mg/dL (0.0-1.4); BUN 21 mg/dL (7-17); BUN/CREATININE RATIO 28 (12-20 (CALC)); CARBON DIOXIDE 23 mmol/l (22-30); CHLORIDE 95 mmol/l (95-108); CREATININE 0.8 mg/dL (0.5-1.0); ETHYL ALCOHOL 0 mg/dl (0-30); GFR > 60 ML/MIN (>=60 (CALC)); GFR FOR AFR.AMER. > 60 ML/MIN (>=60 (CALC)); SGOT/AST 14 u/l (14-36); SODIUM 128 mmol/l (137-146); TOTAL PROTEIN 6.8 g/dL (6.3-8.2)
--- NOTE | 2018-11-29 20:31 | NUR ---
PLACED PT ON BEDPAN, KEEPS SAYING SHE WANTS TO GET UP, HAVE INFORMED HER SHE HAS TO LAY FLAT AND CAN NOT GET UP AND NEEDS TO KEEP C COLLAR ON. SIDE RAILS UP, CALL LIGHT WITHIN REACH.
[2018-11-29 20:37] LABS: PHENYTOIN (DILANTIN) < 3 ug/mL (10 - 20)
[2018-11-29 20:59] LABS: URINE BILIRUBIN - DIPSTICK NEGATIVE (NEGATIVE); URINE BLOOD DIPSTICK TRACE-INTACT (NEGATIVE); URINE COLOR YELLOW; URINE GLUCOSE - DIPSTICK >=1000 mg/dL (NEGATIVE); URINE KETONE NEGATIVE (NEGATIVE); URINE LEUK ESTERASE NEGATIVE (NEGATIVE); URINE NITRITE - DIPSTICK NEGATIVE (Negative); URINE PROTEIN - DIPSTICK NEGATIVE (NEG-TRACE); URINE SPECIFIC GRAVITY 1.015; URINE UROBILINOGEN - DIPSTICK 0.2 E.U./dL (0.2)
[2018-11-29 21:02] LABS: BARBITURATES NEGATIVE (NEGATIVE); COCAINE NEGATIVE (NEGATIVE); METHADONE NEGATIVE (NEGATIVE); OXCYCODONE NEGATIVE (NEGATIVE); TETRAHYDROCANNABIONOL NEGATIVE (NEGATIVE); TRICYLIC ANTIDEPRESSANTS NEGATIVE (NEGATIVE)
--- NOTE | 2018-11-29 21:45 | NUR ---
PT IN CT.
--- NOTE | 2018-11-29 22:00 | NUR ---
RETURNED FROM CT.
--- NOTE | 2018-11-29 23:13 | NUR ---
REMOVED C-COLLAR PER DR VILLAREAL.
--- NOTE | 2018-11-29 23:18 | NUR ---
DR VILLAREAL AT BEDSIDE.
[2018-11-30] VITALS (8 sets, daily range): BP systolic 88–144; BP diastolic 47–71
--- NOTE | 2018-11-30 00:16 | NUR ---
REPORT CALLED TO [facility].
--- NOTE | 2018-11-30 00:33 | NUR ---
R ARM SKIN TEARS CLEANED WITH NS, TELFA DRESSING APPLIED.
--- NOTE | 2018-11-30 00:55 | NUR ---
PT ARRIVED TO RM 283 VIA STRETCHER ACCOMPANIED BY ER NURSE. PT ALERT AND ORIENTED X3,AMBULATED TO STANDING SCALE WITH STEADY GAIT X1 ASSIST. WEIGHT OBTAINED. PT DEMANDING BSC, PT VOIDED INTO COMMODE. ASSISTED PT TO BED, PT STATES SHE WANTS THE LIGHT OFF, INFORMED PT THAT ASSESSMENT IS TO BE COMPLETED BY CHILD LIFE SPECIALIST. IVF INITIATED, ORIENTED PT TO ROOM AND CALL LIGHT, CALL LIGHT PLACED NEAR PT. ADMISSION ASSESSMENT COMPLETED. CALL LIGHT IN REACH,CONTINUE TO MONITOR.
--- NOTE | 2018-11-30 01:00 | NUR ---
PT TO RM 283 WITH RN ON TELE.
--- NOTE | 2018-11-30 04:56 | NUR ---
PT ASSISTED TO BSC, VOIDED 800CC OF CLEAR YELLOW URINE. PT HAS A BRIEF THAT IS SOILED. ATTEMPTED TO REMOVED, PT REFUSED. INFORMED PT THAT BRIEF NEEDS TO BE CHANGED PT AGAIN REFUSED, ONLY REQUEST IS TO GET BACK IN BED. CALL LIGHT IN REACH,CONTINUE TO MONITOR.
[2018-11-30 05:48] LABS: ALBUMIN 3.6 g/dL (3.2-5.0); ALKALINE PHOSPHATASE 54 u/l (38-126); BILIRUBIN, TOTAL 0.3 mg/dL (0.0-1.4); BUN 15 mg/dL (7-17); BUN/CREATININE RATIO 24 (12-20 (CALC)); CARBON DIOXIDE 25 mmol/l (22-30); CHLORIDE 103 mmol/l (95-108); CREATININE 0.6 mg/dL (0.5-1.0); GFR > 60 ML/MIN (>=60 (CALC)); GFR FOR AFR.AMER. > 60 ML/MIN (>=60 (CALC)); MAGNESIUM 1.5 mg/dL (1.6-2.3); POTASSIUM 3.8 mmol/l (3.5-5.1); SGOT/AST 13 u/l (14-36); TOTAL PROTEIN 6.1 g/dL (6.3-8.2)
[2018-11-30 05:59] LABS: ANION GAP 12 (6-22 (CALC)); SODIUM 136 mmol/l (137-146)
[2018-11-30 06:52] LABS: HEMATOCRIT 37.4 % (37.0-47.0); HEMOGLOBIN 13.1 g/dl (12.0-16.0); IMMATURE GRANULOCYTES 0.3 % (0.0-5.0); MEAN CELL VOLUME 90.3 fL CALC (80.0-100.0); MEAN CORPUSCULAR HGB 31.6 pG CALC (26.0-32.0); NEUT# 7.28 thou/uL (2.00-7.15); RED BLOOD COUNT 4.14 mill/uL (4.20-5.60); RED CELL DISTRI WIDTH 12.5 % (11.5-15.5)
--- NOTE | 2018-11-30 07:05 | NUR ---
REPORT RECEIVED FROM KRISTINA LEMON;PT AMBULATING BACK TO BEDSIDE WITH NATALY WARD;INTRODUCED SELF TO PT AND POC DISCUSSED;RESPIRATIONS EVEN AND UNLABORED ON RA;PT DENIES ANY CURRENT NEEDS;TELE MONITORING IN PLACE;ENCOURAGED PT TO CALL FOR ASSISTANCE IF NEEDED;FALL AND SEIZURE PRECAUTIONS IN PLACE;BED IN THE LOWEST POSITION AND BED ALARM ON FOR PT SAFETY;CALL LIGHT IN REACH;WILL CONTINUE TO MONITOR
--- NOTE | 2018-11-30 08:17 | NUR ---
AT BEDSIDE DISCUSSING POC.
--- NOTE | 2018-11-30 08:20 | NUR ---
PT RESTING IN SUPINE POSITION,A&OX3;PT UNWILLING TO ANSWER QUESTIONS OR GIVES A BRIEF EXPLANATION TO PAIN;VS OBTAINED AND ASSESSMENT COMPLETED;PT DENIES ANY CURRENT NEEDS, PAIN SCALE AND REPORTING EDUCATED;RESPIRATIONS EVEN AND UNLABORED ON RA,CLEAR LUNG SOUNDS NOTED;ABDOMEN SOFT ON PALPATION AND ACTIVE IN ALL 4 QUADRANTS;WEAK PEDAL PULSES, PT IS A RT FOOT PARTIAL AMPUTEE;TELE MONITORING IN PLACE;SKIN TEARS NOTED TO BE DRESSED TO RFA;EMS #18G TO LAC INFUSING NS @ 125ML/HR,SITE APPEARS HEALTHY;SEIZURE PRECAUTIONS IN PLACE;PT AMBULATED TO BEDSIDE COMMMODE AND 1 PERSON ASSIST TO BEDSIDE COMMODE AND HAD 1 LARGE/SOFT BM;RE-POSITIONED BACK INTO BED FOR COMFORT;PT DENIES ANY ADDITIONAL NEEDS AT THIS TIME AND IS ENCOURAGED TO CALL FOR ASSISTANCE IF NEEDED;FALL PRECAUTIONS IN PLACE WITH CALL LIGHT IN REACH;WILL CONTINUE TO MONITOR
[2018-11-30] MEDS ORDERED: VITAMIN D31000 UNI1 PO ×2 (10:49→11:07)
[2018-11-30] MEDS ORDERED: TUMS500 MG PO (11:19)
[2018-11-30] MEDS ORDERED: POTASSIUM99 MG PO (11:21)
[2018-11-30] MEDS ORDERED: METFORMIN HCL1000 MG PO (11:22)
[2018-11-30] MEDS ORDERED: MAGNESIUM 250 M1 TAB PO (11:24)
[2018-11-30] MEDS ORDERED: LEVOTHYROXIN50 MCG PO (11:26)
[2018-11-30] MEDS ORDERED: LEVEMIR FL100 UNIT/M SC (11:29)
[2018-11-30] MEDS ORDERED: GLUCOTROL10 MG PO (11:30)
--- NOTE | 2018-11-30 11:30 | NUR ---
PT APPEARS TO BE RESTING IN SUPINE POSITION;RESPIRATIONS APPEAR EVEN AND UNLABORED ON RA;NO S/S OF DISTRESS NOTED;IV FLUIDS INFUSING WELL TO LAC;TELE MONITORING IN PLACE;SEIZURE AND FALL PRECAUTIONS NOTED WITH BED IN THE LOWEST POSITION AND CALL LIGHT IN REACH;WILL CONTINUE TO MONITOR
[2018-11-30] MEDS ORDERED: FUROSEMIDE40 MG PO (11:31)
[2018-11-30] MEDS ORDERED: FISH OIL 1000 M1 CAP PO (11:33)
[2018-11-30] MEDS ORDERED: ENALAPRIL10 MG PO (11:34)
[2018-11-30] MEDS ORDERED: CALCIUM 500+D 51 TAB PO (11:36)
--- NOTE | 2018-11-30 15:40 | NUR ---
PT APPEARS TO BE SLEEPING IN IN SUPINE POSITION;RESPIRATIONS EVEN AND UNLABORED ON RA;NO S/S OF DISTRESS NOTED;TELE MONITORING IN PLACE;IV FLUIDS INFUSING WELL TO LEFT WRIST;SEIZURE AND FALL PRECAUTIONS IN PLACE;CALL LIGHT IN REACH;WILL CONTINUE TO MONITOR
--- NOTE | 2018-11-30 17:01 | NUR ---
PT REPORTS HEADACHE AND REQUESTS TYLENOL, TO BE NOTIFIED OF REQUEST;PT REFUSES ICE PACKS FOR HEADACHE AT THIS TIME;WILL CONTINUE TO MONITOR
--- NOTE | 2018-11-30 18:52 | NUR ---
PT REPORTS HEADACHE PAIN RATING 2/10 ON THE PAIN SCALE AND REQUESTS PAIN MEDICATION;PT MEDICATED WITH TYLENOL 650MG PO AT THIS TIME;WILL MONITOR FOR EFFECTIVENESS
--- NOTE | 2018-11-30 19:32 | NUR ---
PT IS SLEEPING W/LIGHTS OUT, NO S/O DISTRESS, CALL LIGHT AT SIDE.
--- NOTE | 2018-11-30 22:47 | NUR ---
PT MEDICATED ORDERS PROVIDE AND ASSESSED.LUNG SOUNDS ARE DIM, ABD SOFT NON-TENDER W/ACTIVE BOWEL SOUNDS. BRUISING TO RIGHT EYE AND RIGHT SHOULDER, SKIN TEARS TO RIGHT ARM. PT REFUSED DRESSING CHANGE AT THIS TIME, WILL FOLLOW UP AND ATTEMPT TO CHANGE DRESSING TO ARM. OFFERED COOL OR ICE-PACK TO RIGHT EYE/REFUSED.
[2018-12-01 03:58] VITALS: BP 96/54
--- NOTE | 2018-12-01 06:38 | NUR ---
PT IV FLUIDS CHANGED, DRESSING TO RIGHT ARM CHANGED. I WAS LEAVING ROOM, PT PULLED IV OUT. SITE APPEARS HEALTHY.
[2018-12-01 08:41] VITALS: BP 108/60
--- NOTE | 2018-12-01 09:40 | NUR ---
IN TO SEE PT, DISCUSSED POC, POSSIBLE DISCHARGE TOMORROW. CALL LIGHT IN REACH,CONTINUE TO MONITOR.
[2018-12-01 10:25] LABS: HEMATOCRIT 35.1 % (37.0-47.0); HEMOGLOBIN 12.3 g/dl (12.0-16.0); IMMATURE GRANULOCYTES 0.4 % (0.0-5.0); MEAN CELL VOLUME 91.6 fL CALC (80.0-100.0); MEAN CORPUSCULAR HGB 32.1 pG CALC (26.0-32.0); NEUT# 4.51 thou/uL (2.00-7.15); RED BLOOD COUNT 3.83 mill/uL (4.20-5.60); RED CELL DISTRI WIDTH 12.6 % (11.5-15.5)
[2018-12-01 10:59] LABS: ALBUMIN 3.3 g/dL (3.2-5.0); ALKALINE PHOSPHATASE 61 u/l (38-126); ANION GAP 11 (6-22 (CALC)); BILIRUBIN, TOTAL 0.3 mg/dL (0.0-1.4); BUN 15 mg/dL (7-17); BUN/CREATININE RATIO 23 (12-20 (CALC)); CARBON DIOXIDE 22 mmol/l (22-30); CHLORIDE 106 mmol/l (95-108); CREATININE 0.7 mg/dL (0.5-1.0); GFR > 60 ML/MIN (>=60 (CALC)); GFR FOR AFR.AMER. > 60 ML/MIN (>=60 (CALC)); POTASSIUM 3.9 mmol/l (3.5-5.1); SGOT/AST 16 u/l (14-36); SODIUM 135 mmol/l (137-146); TOTAL PROTEIN 5.7 g/dL (6.3-8.2)
[2018-12-01 11:01] VITALS: BP 116/56
--- NOTE | 2018-12-01 11:08 | NUR ---
MAX Ayala MD NOTIFIED NEW ORDERS RECEIVED AND FAXED TO PHARMACY. CALL LIGHT IN REACH,CONTINUE TO MONITOR.
[2018-12-01 14:35] VITALS: BP 124/69
[2018-12-01 19:16] VITALS: BP 128/65
--- NOTE | 2018-12-01 20:35 | NUR ---
PT MEDICATED ORDERS PROVIDE. LIGHTS AND TV ARE ON, PT LAYING ON SIDE AWAY FROM TV AWAKE. BRUISING TO RIGHT EYE, OFFERED COOL PACK/REFUSED. DRESSING TO RIGHT ARM CDI. NO NOTED EDEMA, ABD SOFT NON-TENDER W/ACTIVE BOWEL SOUNDS. LUNG SOUNDS ARE CLEAR. LOCX3. FLAT AFFECT, ANSWERS QUESTIONS W/DELAYED RESPONSE. PT DENIES ANY OTHER NEEDS AT THIS TIME. CALL LIGHT AT SIDE. LIGHTS LEFT ON DOOR OPEN/REQUEST.
[2018-12-01 23:50] VITALS: BP 109/52
--- NOTE | 2018-12-02 00:05 | NUR ---
PT IS SLEEPING AT THIS TIME. W/TV ON. NO S/O DISTRESS.
--- NOTE | 2018-12-02 03:25 | NUR ---
PT IV FLUIDS REPLACED AT THIS TIME. PT WAS SLEEPING, AWOKE TO MY ENTERING ROOM. DENIES NEEDS AT THIS TIME. CALL LIGHT AT SIDE.
[2018-12-02 04:09] VITALS: BP 109/55
--- NOTE | 2018-12-02 04:40 | NUR ---
AIDES ENTERED ROOM TO OBTAIN V/S, PT WAS WET CLAMMY, DRENCHED W/SWEAT AND NOT SPEAKING. ACCU-CHECK ASSESSED TO BE 50, ORANGE JUICE W/SUGAR PROVIDED, ACCU-CHECK 48, DEXTROSE 50 ADMINISTERED. BLOOD SUGAR UP TO 132 AND PHYSICIAN NOTIFIED. NO NEW ORDERS AT THIS TIME.
[2018-12-02 05:32] LABS: ALBUMIN 3.3 g/dL (3.2-5.0); ALKALINE PHOSPHATASE 59 u/l (38-126); ANION GAP 11 (6-22 (CALC)); BILIRUBIN, TOTAL 0.2 mg/dL (0.0-1.4); BUN 13 mg/dL (7-17); BUN/CREATININE RATIO 18 (12-20 (CALC)); CARBON DIOXIDE 24 mmol/l (22-30); CHLORIDE 107 mmol/l (95-108); CREATININE 0.7 mg/dL (0.5-1.0); GFR > 60 ML/MIN (>=60 (CALC)); GFR FOR AFR.AMER. > 60 ML/MIN (>=60 (CALC)); MAGNESIUM 1.3 mg/dL (1.6-2.3); POTASSIUM 3.4 mmol/l (3.5-5.1); SGOT/AST 27 u/l (14-36); SODIUM 139 mmol/l (137-146); TOTAL PROTEIN 5.7 g/dL (6.3-8.2)
--- NOTE | 2018-12-02 06:09 | NUR ---
PT SLEEPING, DENIES ANY NEEDS. PT EXPRESSES WANTING TO BE LEFT ALONE, BUT REPORTS FEELING BETTER. PT APPEARS STILL SOMEWHAT GROGGY AT THIS TIME. WILL FOLLOW-UP AND ATTEMPT TO CONTINUE IV FLUIDS, AT THIS TIME PT IS REFUSING TO ALLOW ME TO RECONNECT HER TO FLUIDS.
--- NOTE | 2018-12-02 06:33 | NUR ---
LAB CALLED TO REPORT CRITICAL CALCIUM LEVEL OF 5.4, PHYSICIAN NOTIFIED AND ORDERS RECEIVED.
--- NOTE | 2018-12-02 07:23 | NUR ---
PHYSICIAN CONTACTED FOR ORDER CLARIFICATION AND NEW ORDERS REGARDING LAB RESULTS. ORDERS RECEIVED AND PHARMACY NOTIFIED.
[2018-12-02 08:23] VITALS: BP 125/67
[2018-12-02 11:00] VITALS: BP 117/57
--- NOTE | 2018-12-02 11:45 | NUR ---
PT HAD AN XLARGE LOOSE BM, WHEN OFFERED PT SHOWER SHE REFUSED. INFORMED PT THAT SHE CAN NOT BE PROPERLY CLEANED UNLESS SHE IS IN THE SHOWER DUE TO THE STOOL BEING EVERYWHERE. HOUSEKEEPING CALLED FOR CLEANING OF FLOOR. PT SHOWERED BY HAT FINISHER. MANAGER SUPPORT CLEANED BED. NEW LINENS APPLIED. REPLACED TELE AND FLUIDS. ENCOURAGED PT TO CALL FOR ASSISTANCE. CALL LIGHT IN REACH,CONTINUE TO MONITOR.
[2018-12-02 14:55] VITALS: BP 119/60
--- NOTE | 2018-12-02 18:42 | NUR ---
SPOKE WITH NOTIFIED OF CALCIUM 6.0. ORDERS FOR 2 MORE DOSES OF CALCIUM TONIGHT.
--- NOTE | 2018-12-02 19:20 | NUR ---
REPORT FROM XOCHILT ACEVEDO. PT RESTING IN BED. ALERT AND ORIENTED. PT RIGHT EYE APPEARS SWOLLEN AND RED. PT STATES SHE FELL AT HOME AND HIT THE FLOOR. PT DENIES ANY PAIN OR DISCOMFORT. PT UP TO BSC WITH MINIMAL ASSISTANCE, VOIDED WITHOUT DIFFICULTY. IV SITE APPEARS HEALTHY WITH IV FLUIDS INFUSING. DISCUSSED POC AND SAFETY PRECAUTIONS. PT VERBALIZED UNDERSTANDING. CALL LIGHT WITHIN REACH. WILL CONTINUE TO MONITOR.
[2018-12-02 20:00] VITALS: BP 129/65
--- NOTE | 2018-12-02 20:09 | NUR ---
ASSISTED PT TO BSC AT THIS TIME. PT VOIDED WITHOUT DIFFICULTY. ASSISTED BACK TO BED. CALCIUM INFUSING WITHOUT DIFFICULTY. CALL LIGHT WITHIN REACH. WILL CONTINUE TO MONITOR.
--- NOTE | 2018-12-02 21:39 | NUR ---
ASSISTED PT TO BSC. PT VOIDED WITHOUT DIFFICULTY. PT REQUEST MEDIA PROMOTER NOT TOUCH HER. EDUCATED PT ON SAFETY PRECAUTIONS. MEDIA PROMOTER STAND BY ASSIST. PT GOT BACK IN BED. CALL LIGHT WITHIN REACH. WILL CONTINUE TO MONITOR.
[2018-12-03 00:11] VITALS: BP 107/49
--- NOTE | 2018-12-03 01:30 | NUR ---
PT RESTING IN BED WITH EYES CLOSED. IV FLUIDS INFUSING WITHOUT DIFFICULTY. NO S/S OF RESPIRATORY DISTRESS. CALL LIGHT WITHIN REAC. WILL CONTINUE TO MONITOR.
[2018-12-03 04:09] VITALS: BP 119/65
[2018-12-03 05:10] LABS: HEMATOCRIT 32.9 % (37.0-47.0); HEMOGLOBIN 11.5 g/dl (12.0-16.0); IMMATURE GRANULOCYTES 0.3 % (0.0-5.0); MEAN CELL VOLUME 90.9 fL CALC (80.0-100.0); MEAN CORPUSCULAR HGB 31.8 pG CALC (26.0-32.0); NEUT# 4.33 thou/uL (2.00-7.15); RED BLOOD COUNT 3.62 mill/uL (4.20-5.60); RED CELL DISTRI WIDTH 12.5 % (11.5-15.5)
[2018-12-03 05:17] LABS: ALBUMIN 3.1 g/dL (3.2-5.0); ALKALINE PHOSPHATASE 58 u/l (38-126); ANION GAP 11 (6-22 (CALC)); BILIRUBIN, TOTAL 0.3 mg/dL (0.0-1.4); BUN 10 mg/dL (7-17); BUN/CREATININE RATIO 15 (12-20 (CALC)); CARBON DIOXIDE 23 mmol/l (22-30); CHLORIDE 108 mmol/l (95-108); CREATININE 0.6 mg/dL (0.5-1.0); GFR > 60 ML/MIN (>=60 (CALC)); GFR FOR AFR.AMER. > 60 ML/MIN (>=60 (CALC)); MAGNESIUM 1.2 mg/dL (1.6-2.3); POTASSIUM 3.7 mmol/l (3.5-5.1); SGOT/AST 19 u/l (14-36); SODIUM 138 mmol/l (137-146); TOTAL PROTEIN 5.4 g/dL (6.3-8.2)
--- NOTE | 2018-12-03 05:45 | NUR ---
PT LAB RESULTS NOTED TO HAVE GLUCOSE OF 64. PT ASYMPTOMATIC. CRACKERS AND ORANGE JUICE PROVIDED. WILL CONTINUE TO MONITOR.
[2018-12-03 05:55] LABS: TSH, 3RD GENERATION 1.11 uIU/mL (0.47 - 4.68)
--- NOTE | 2018-12-03 07:10 | NUR ---
REPORT RECEIVED FROM KRISTINA SHAFFER;PT APPEARS TO BE SLEEPING IN SUPINE POSITION;RESPIRATIONS EVEN AND UNLABORED ON RA;NO S/S OF DISTRESS NOTED;SEIZURE AND FALL PRECAUTIONS IN PLACE WITH BED IN THE LOWEST POSITION AND CALL LIGHT IN REACH;WILL CONTINUE TO MONITOR
[2018-12-03 08:36] VITALS: BP 127/58
--- NOTE | 2018-12-03 08:40 | NUR ---
PT RESTING IN SUPINE POSITION,A&O X3;VS OBTAINED AND ASSESSMENT COMPLETED;PT DENIES ANY CURRENT PAIN, PAIN SCALE AND REPORTING EDUCATED;RESPIRATIONS SHALLOW ON RA,CLEAR LUNG SOUNDS;ABDOMEN SOFT ON PALPATION AND ACTIVE IN ALL 4 QUADRANTS;WEAK PEDAL PULSES;RT PARTIAL FOOT AMPUTEE;SKIN TEARS NOTED TO RFA, BANDAIDS IN PLACE;TELE MONITORING IN PLACE;#20G TO LAC INFUSING NS @ 100ML/HR,SITE APPEARS HEALTHY;ACCUCHECK 119;PT DENIES ANY ADDITIONAL NEEDS AT THIS TIME AND IS ENCOURAGED TO CALL FOR ASSISTANCE IF NEEDED;FALL AND SEIZURE PRECAUTIONS IN PLACE;CALL LIGHT IN REACH;WILL CONTINUE TO MONITOR
--- NOTE | 2018-12-03 08:53 | NUR ---
AT BEDSIDE DISCUSSING POC INCLUDING D/C HOME.
--- NOTE | 2018-12-03 09:25 | NUR ---
ALL DISCHARGE INSTRUCTIONS PROVIDED AT THIS TIME;EDUCATED PT AND ROOMMATE ON THE IMPORTANCE OF TAKING PATIENT MEDICATION TO PREVENT SEIZURES;PT AND ROOMMATE DENY ANY ADDITIONAL NEEDS;IV SITE REMOVED WITH CATHETER INTACT;WHEELCHAIR TO BE PROVIDED FOR DISCHARGE HOME.
--- NOTE | 2018-12-03 09:34 | NUR ---
Discharge instructions given. Patient verbalizes understanding of same. Discharged in stable condition via Wheelchair to Home with friend. All belongings sent with pt.
== END 2018-12-03 09:34 | disposition home or self-care (01) ==
LOC: ED 19:16 → ED-I 19:44 → ED 19:44 → ED-I 23:20 → ED 23:34 → MS2 23:35
PROVIDERS: Emergency Medicine; ADMIT Internal Medicine Geriatric Medicine; ATTEND Internal Medicine Geriatric Medicine
DX: E89.2 Postprocedural hypoparathyroidism (principal); S00.211A Abrasion of right eyelid and periocular area, initial encounter; S00.83XA Contusion of other part of head, initial encounter; X58.XXXA Exposure to other specified factors, initial encounter; S01.552A Open bite of oral cavity, initial encounter; S50.811A Abrasion of right forearm, initial encounter; S00.81XA Abrasion of other part of head, initial encounter; E87.1 Hypo-osmolality and hyponatremia; E83.51 Hypocalcemia; E86.0 Dehydration; J44.9 Chronic obstructive pulmonary disease, unspecified; E89.0 Postprocedural hypothyroidism; E83.42 Hypomagnesemia; E11.649 Type 2 diabetes mellitus with hypoglycemia without coma; E11.51 Type 2 diabetes mellitus with diabetic peripheral angiopathy without gangrene; I48.91 Unspecified atrial fibrillation; I25.10 Atherosclerotic heart disease of native coronary artery without angina pectoris; F17.200 Nicotine dependence, unspecified, uncomplicated; T50.3X6A Underdosing of electrolytic, caloric and water-balance agents, initial encounter; Y92.009 Unspecified place in unspecified non-institutional (private) residence as the place of occurrence of the external cause; Z89.411 Acquired absence of right great toe; Z89.421 Acquired absence of other right toe(s); Z91.128 Patient's intentional underdosing of medication regimen for other reason

== ENCOUNTER 2018-12-15 09:24 | Inpatient (IN) | payer MEDICARE ==
[~2018-12-15] VITALS: Ht 175.3 cm; Wt 66.0 kg
[2018-12-15] VITALS (20 sets, daily range): BP systolic 108–151; BP diastolic 53–105
[~2018-12-15 09:24] MED LIST changes: +CALCIUM 500+D 51 TAB PO; +FISH OIL 1000 M1 CAP PO; +FUROSEMIDE40 MG PO; +LEVEMIR FL100 UNIT/M SC; +MAGNESIUM 250 M1 TAB PO; +METFORMIN HCL1000 MG PO; +VITAMIN D31000 UNI1 PO
--- NOTE | 2018-12-15 09:35 | NUR ---
EMS TO ER ROOM 10, TO B ED
--- NOTE | 2018-12-15 09:42 | NUR ---
FLUIDS INFUSING FOR B/P, DR. ISLAS WANTS THE CARDIZEM HELD UNTIL SEE IF FLUIDS HELP
[2018-12-15 09:51] LABS: IMMATURE GRANULOCYTES 0.3 % (0.0-5.0); MEAN CELL VOLUME 91.4 fL CALC (80.0-100.0); MEAN CORPUSCULAR HGB 31.5 pG CALC (26.0-32.0); MEAN CORPUSCULAR HGB CONC 34.4 g/L CALC (32.0-36.0); NEUT# 6.85 thou/uL (2.00-7.15); RED BLOOD COUNT 4.64 mill/uL (4.20-5.60); RED CELL DISTRI WIDTH 12.7 % (11.5-15.5)
[2018-12-15 09:52] LABS: HEMATOCRIT 42.4 % (37.0-47.0); HEMOGLOBIN 14.6 g/dl (12.0-16.0)
--- NOTE | 2018-12-15 09:55 | NUR ---
PT ALERT/ORIENTED X3, STATES HAS BEEN DOING ALOT OF COUGHING LATELY, AND NOT EATING WELL. HAS BEEN UNDER ALOT OF STRESS.
[2018-12-15 10:06] LABS: BILIRUBIN, TOTAL 0.7 mg/dL (0.0-1.4); CREATININE 1.4 mg/dL (0.5-1.0); POTASSIUM 3.7 mmol/l (3.5-5.1)
[2018-12-15 10:15] LABS: ALBUMIN 4.5 g/dL (3.2-5.0); TOTAL PROTEIN 7.5 g/dL (6.3-8.2)
--- NOTE | 2018-12-15 10:32 | NUR ---
PT RESTING QUIETLY ON STRETCHER, BLOOD PRESSURE REMAINS LOW 99/56, PER DR. MARIA E MIRANDA DRIP BEGUN FOR HEART RATE OF 114.
--- NOTE | 2018-12-15 11:00 | NUR ---
TRIPLE LUMEN PLACED RIGHT SIDE OF NECK. VITAL SIGNS STABLE. HEPARIN GTT AND CARDIZEM GTT INFUSING. PT SITTING UP IN BED , ALERT/ORIENTED X3.
--- NOTE | 2018-12-15 11:18 | NUR ---
SBAR PRINTED TO FLOOR
--- NOTE | 2018-12-15 12:00 | NUR ---
VITAL SIGNS STABLE.
--- NOTE | 2018-12-15 12:32 | NUR ---
REPORT CALLED TO ICU FOR CONTINUATION OF CARE.
--- NOTE | 2018-12-15 12:47 | NUR ---
RT @BEDSIDE FOR BREATHING TREATMENT.
--- NOTE | 2018-12-15 13:15 | NUR ---
PT TO ICU 3 FROM ER. PT ABLE TO MOVE SELF OVER TO NEW BED.
--- NOTE | 2018-12-15 13:20 | NUR ---
ROOM SET UP LIKE PT LIKES IT- TISSUES ON TABLE WITH PITCHER OF WATER, BSC CLOSE, CALLBELL IN HAND, COVERS UP.
--- NOTE | 2018-12-15 13:35 | NUR ---
PT ASSISTED TO BSC FOR URINE. PT REMINDED NOT TO GET UP W/OUT STAFF PRESENT. CALLBELL IN HAND.
--- NOTE | 2018-12-15 13:44 | NUR ---
CALLED PHARMACY TO HELP WITH STARTING HEPAIN DRIP. OSWALD CALCULATED 800unit/HR. PT EDUCATED ON MEDS GIVEN.
--- NOTE | 2018-12-15 13:46 | NUR ---
BED ALARM ON. DOORS CLOSED, PT YELLED INTO HER PHONE TO NOTIFY EVERYONE SHE IS IN THE ICU.
--- NOTE | 2018-12-15 13:58 | NUR ---
RT @BEDSIDE FOR EKG.
--- NOTE | 2018-12-15 14:41 | NUR ---
BED ALARM NOTIFIED PT TRYING TO GET OUT OF BED PT ASSISTED UP TO BSC FOR URINATION. PT UNABLE TO GET TO BSC PRIOR TO URINATING ON FLOOR.
--- NOTE | 2018-12-15 15:28 | NUR ---
PT SLEEPING IN BED ON RIGHT SIDE. NO S/S OF DISTRESS. CALLBELL IN HAND. WILL CONTINUE TO MONITOR.
--- NOTE | 2018-12-15 16:06 | NUR ---
RBVO DR VELIZ TO START CATH WYNN FOR STRICT I&O D/T PTS INCONTENENCE. CATH WYNN ATTACHED TO LEFT THIGH BY LEG STRAP. KEPT BELOW BED. PALE YELLOW URINE OUTPUT. PERICARE COMPLETED PRIOR TO STERILE INSERTION & AFTER. 10c WATER ADDED TO BALLOON.
--- NOTE | 2018-12-15 16:29 | NUR ---
PT, LAYING ON HER LEFT SIDE, APPEARS TO BE SLEEPING. WILL CONTINUE TO MONITOR.
--- NOTE | 2018-12-15 16:52 | NUR ---
PT ASSISTED UP TO BSC FOR LARGE BM.
--- NOTE | 2018-12-15 17:00 | NUR ---
LABS DRAWN FROM PTS TRIPLE LUMEN.
--- NOTE | 2018-12-15 17:06 | NUR ---
DR VELIZ @BEDSIDE WITH PT. RBVO TO STOP HEPARIN. MD NOTIFIED CARDIZEM STOPPED UPON ARRIVAL TO ICU.
--- NOTE | 2018-12-15 17:10 | NUR ---
PT CALLED DR VELIZ BACK INTO ROOM TO ANSWER MORE QUESTIONS. MD ORDERED CONTINUE GIVING IVF. DO NOT LET PT TAKE HOME MEDICATIONS IN PURSE.
--- NOTE | 2018-12-15 17:58 | NUR ---
DIETARY @BEDSIDE FOR FOOD PREFERENCES. PT STATES CHOCOLATE GIVES HER DIARRHEA. WILL CHANGE DIET ORDER TO REFLECT. PT GIVEN HER PURSE TO FIND HER MEDS TO SEND TO PHARMACY, BUT PT "MUSTVE LEFT THOSE MEDS AT HOME".
[2018-12-15 18:06] LABS: BILIRUBIN, TOTAL 0.6 mg/dL (0.0-1.4); CREATININE 1.2 mg/dL (0.5-1.0); POTASSIUM 3.4 mmol/l (3.5-5.1); TOTAL PROTEIN 6.6 g/dL (6.3-8.2)
--- NOTE | 2018-12-15 19:05 | NUR ---
BEDSIDE REPORT RECEIVED FROM LEELA LEE. PT RESTING IN BED SEMI FOWLERS WITH EYES CLOSED; OPENS EYES TO VERBAL STIMULI; ALERT AND ORIENTED, SLIGHLTY DROWSY. DENIES PAIN. RESPIRATIONS EVEN AND UNLABORED ON ROOM AIR. PLAN OF CARE REVIEWED. PT ENCOURAGED TO VERBALIZE CONCERNS. STATES UNDERSTANDING. SAFETY MEASURES IN PLACE. CALL LIGHT WITHIN REACH.
--- NOTE | 2018-12-15 19:39 | NUR ---
ASSESSMENT COMPLETE. URINE SPECIMEN SENT TO LAB.
--- NOTE | 2018-12-15 20:44 | NUR ---
CENTRAL LINE DRESSING CHANGED. 10 MINUTES LATER PT PULLED OFF DRESSING STATING THAT IT WAS HURTING. ANOTHER DRESSING APPLIED WITH STERILE TECHNIQUE AND PT EDUCATED ON NEED TO KEEP CENTRAL LINE PROTECTED AND CLEAN. ACCU CHECK 310. NEW ORDERS FROM DR. VELIZ FOR LOW DOSE SLIDING SCALE AND ONE TIME DOSE OF LASIX IV.
--- NOTE | 2018-12-15 21:33 | NUR ---
4 UNITS OF NOVOLOG GIVEN FOR ACCU CHECK OF 310; SNACK PROVIDED. LASIX ALSO ADMINISTERED. CLEAR YELLOW URINE DRIANING FROM WYNN IN ADEQUATE AMOUNTS. NORMAL SALINE COMPLETED AND ALL IV SITES ARE NOW SALINE LOCKED.
[2018-12-15 21:56] LABS: URINE BILIRUBIN - DIPSTICK NEGATIVE (NEGATIVE); URINE BLOOD DIPSTICK NEGATIVE (NEGATIVE); URINE COLOR YELLOW; URINE GLUCOSE - DIPSTICK NEGATIVE (NEGATIVE); URINE KETONE NEGATIVE (NEGATIVE); URINE LEUK ESTERASE NEGATIVE (NEGATIVE); URINE NITRITE - DIPSTICK NEGATIVE (Negative); URINE PH 6.5 (4.5-8.0); URINE PROTEIN - DIPSTICK NEGATIVE (NEG-TRACE); URINE SPECIFIC GRAVITY 1.015; URINE UROBILINOGEN - DIPSTICK 0.2 E.U./dL (0.2)
[2018-12-16] VITALS (21 sets, daily range): BP systolic 106–149; BP diastolic 50–71
--- NOTE | 2018-12-16 00:12 | NUR ---
PT USING CALL LIGHT PRN FOR ASSISTANCE. DENIES PAIN. RESPIRATIONS EVEN AND UNLABORED ON ROOM AIR. EMPTIED 1750ML OF CLEAR YELLOW URINE FROM WYNN. IV SITES APPEAR HEALTHY AND FLUSH. SAFETY MEASURES IN PLACE. CALL LIGHT WITHIN REACH.
--- NOTE | 2018-12-16 02:20 | NUR ---
NO ACUTE CHANGES IN CONDITION THROUGHOUT THE NIGHT. SINUS CALVIN ON TELEMETRY HEART RATE CURRENTLY 53; ASYMPTOMATIC. WILL CONTINUE TO MONITOR.
--- NOTE | 2018-12-16 04:00 | NUR ---
PT ASLEEP ON LEFT SIDE WITH NO SIGNS OF DISTRESS.
[2018-12-16 05:26] LABS: HEMATOCRIT 38.4 % (37.0-47.0); HEMOGLOBIN 13.2 g/dl (12.0-16.0); IMMATURE GRANULOCYTES 0.2 % (0.0-5.0); MEAN CELL VOLUME 91.6 fL CALC (80.0-100.0); MEAN CORPUSCULAR HGB 31.5 pG CALC (26.0-32.0); MEAN CORPUSCULAR HGB CONC 34.4 g/L CALC (32.0-36.0); NEUT# 5.49 thou/uL (2.00-7.15); RED BLOOD COUNT 4.19 mill/uL (4.20-5.60); RED CELL DISTRI WIDTH 12.4 % (11.5-15.5)
[2018-12-16 05:41] LABS: ALBUMIN 4.1 g/dL (3.2-5.0); ALKALINE PHOSPHATASE 71 u/l (38-126); ANION GAP 11 (6-22 (CALC)); BILIRUBIN, TOTAL 0.7 mg/dL (0.0-1.4); BUN 34 mg/dL (7-17); BUN/CREATININE RATIO 30 (12-20 (CALC)); CARBON DIOXIDE 34 mmol/l (22-30); CHLORIDE 94 mmol/l (95-108); CREATININE 1.1 mg/dL (0.5-1.0); GFR 51 ML/MIN (>=60 (CALC)); GFR FOR AFR.AMER. > 60 ML/MIN (>=60 (CALC)); POTASSIUM 3.4 mmol/l (3.5-5.1); SGOT/AST 12 u/l (14-36); SODIUM 135 mmol/l (137-146); TOTAL PROTEIN 6.7 g/dL (6.3-8.2)
--- NOTE | 2018-12-16 05:53 | NUR ---
ALL LUMENS OF RIGHT IJ FLUSH WELL WITH GOOD BLOOD RETURN.
--- NOTE | 2018-12-16 06:43 | NUR ---
NEW ORDERS RECEIVED FROM DR. VELIZ. IV FLUIDS INITIATED.
--- NOTE | 2018-12-16 06:50 | NUR ---
REPORT RECVD FROM LEELA BOYCE @START OF SHIFT.
--- NOTE | 2018-12-16 07:31 | NUR ---
PT SLEEPING IN BED. VSS. BREATHING EVEN/UNLABORED. CALLBELL W/IN REACH.
--- NOTE | 2018-12-16 07:40 | NUR ---
DR VELIZ @BEDSIDE.
--- NOTE | 2018-12-16 08:15 | NUR ---
PT SITTING UP IN BED, EATING BREAKFAST. PT ENCOURAGED TO USE HER CALLBELL BEFORE SHE TRIES TO GET OUT OF BED. BED ALARM ON.
--- NOTE | 2018-12-16 08:50 | NUR ---
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 THEN CALLED BACK TO ROOM TO "FIX HER SHEETS. PT POSITIONED TRAY "HOW SHE LIKES IT" BY SELF.
--- NOTE | 2018-12-16 08:52 | NUR ---
PT DEYSIERING OUT TO STAFF FROM ROOM. ENCOURAGED TO USE CALLBELL.
--- NOTE | 2018-12-16 09:55 | NUR ---
RT @BEDSIDE FOR EKG
--- NOTE | 2018-12-16 10:22 | NUR ---
PT REFUSED BATH & TEETH BRUSHING. WILL TRY AGAIN LATER.
--- NOTE | 2018-12-16 10:58 | NUR ---
ASKED TO [employer]ANGLE EQUIPMENT WHEN IN ROOM FOR ROUNDING. NO OTHER NEEDS/CONCERNS AT THIS MOMENT.
--- NOTE | 2018-12-16 11:15 | NUR ---
PT SITTING UP IN BED, EATING LUNCH
--- NOTE | 2018-12-16 12:39 | NUR ---
PT SLEEPING IN BED. NO S/S OF DISTRESS. WILL CONTINUE TO MONITOR.
--- NOTE | 2018-12-16 13:33 | NUR ---
LINENS CHANGED AFTER PT SPILLED LUNCH ALL OVER THEM. PT STILL REFUSING BATH.
--- NOTE | 2018-12-16 14:30 | NUR ---
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 NO OTHER NEEDS/CONCERNS AT THIS TIME. CALLBELL IN HAND. WILL CONTINUE TO MONITOR.
--- NOTE | 2018-12-16 16:19 | NUR ---
BLOOD DRAWN OUT OF PTS RIJ. NEW BAG OF IV FLUIDS STARTED. CATH WYNN EMPTIED. PT EDUCATED ON COVERING HER MOUTH WHEN SHE COUGHS. PT ABLE TO REPOSITION SELF. CALLBELL IN HAND. VSS. WILL CONTINUE TO MONITOR.
[2018-12-16 16:41] LABS: CREATININE 1.4 mg/dL (0.5-1.0); POTASSIUM 3.2 mmol/l (3.5-5.1)
--- NOTE | 2018-12-16 16:50 | NUR ---
CALLED INTO ROOM TO MOVE AN ITEM ON HER TABLE AT BEDSIDE .
--- NOTE | 2018-12-16 17:29 | NUR ---
PT SITTING UP ON SIDE OF BED, EATING DINNER. BED ALARM STILL ON.
--- NOTE | 2018-12-16 17:43 | NUR ---
CALLED TO ROOM TO FINANCIAL ADVOCATE DINNER TRAY BC "SHE DOESNT LIKE DIRTY DISHES LAYING AROUND". PICKED UP Plasticell BOX PT KNOCKED TO GROUND, AND HELPED TO FIND THE NURSE CALLBELL THAT WAS LITERALLY IN HER HAND. EMS IV DC'D. TIP INTACT, DRESSING APPLIED.
--- NOTE | 2018-12-16 18:03 | NUR ---
ANSWERED OSKAR. PT WANTING COFFEE. FRESH POT STARTED.
--- NOTE | 2018-12-16 18:38 | NUR ---
PT YELLING OUT FOR STAFF TO TUCK HER SHEET IN. AND THEN "HAD ANOTHER PROBLEM"; HER (SHAKING EMPTY COFFEE CUP THAT WAS JUST BROUGHT TO HER) IS EMPTY.
--- NOTE | 2018-12-16 18:50 | NUR ---
BEDSIDE REPORT RECEIVED FROM LEELA LEE. PT RESTING IN BED SEMI FOWLERS TALKING ON CELL PHONE; ALERT AND ORIENTED. DENIES PAIN. RESPIRATIONS EVEN AND UNLABORED ON ROOM AIR. PLAN OF CARE REVIEWED. PT ENCOURAGED TO VERBALIZE CONCERNS. STATES UNDERSTANDING. SAFETY MEASURES IN PLACE. CALL LIGHT WITHIN REACH.
--- NOTE | 2018-12-16 19:11 | NUR ---
ASSESSMENT COMPLETE. PT ASSISTED TO BSC FOR LARGE FORMED BOWEL MOVEMENT; INDEPENDENT WITH CANE AND SUPERVISION. RIGHT IJ DRESSING IS CDI AND SITE APPEARS HEALTHY. IV FLUIDS INFUSING WITHOUT DIFFICULTY. WYNN DRAINING CLEAR PALE YELLOW URINE. PT BACK IN BED NOW RESTING SEMI FOWLERS. REPOSITIONING SELF. PT DECLINES ASSISTED BACK AT THIS TIME; PARTIAL LINEN CHANGE.
--- NOTE | 2018-12-16 21:10 | NUR ---
3 UNITS OF NOVOLOG GIVEN FOR ACCU CHECK OF 273 AND SNACK PROVIDED. PT ALSO REQUESTS COFFEE. NO OTHER CONCERNS AT THIS TIME.
--- NOTE | 2018-12-17 00:16 | NUR ---
LASIX ADMINSITERED THROUGH IV; ALL LUMENS FLUSH WITH GOOD BLOOD RETURN. 1000 ML EMPTIED FROM WYNN AT THIS TIME. AFEBRILE. VS STABLE. PT HAS NO REQUESTS OR CONCERNS AT THIS TIME. SINUS CALVIN ON TELEMETRY.
[2018-12-17 01:00] VITALS: BP 139/79
--- NOTE | 2018-12-17 01:59 | NUR ---
BED ALARM SOUNDED AND PT FOUND STANDING AT SIDE OF BED ASKING WHERE HER TV REMOTE IS. CALL LIGHT WAS IN THE BED WITHIN REACH. PT GOT BACK INTO BED STATING THAT IS ALL THAT HE WANTED AT THIS TIME. NOW RESTING ON LEFT SIDE.
[2018-12-17 03:00] VITALS: BP 138/63
[2018-12-17 05:00] VITALS: BP 159/80
--- NOTE | 2018-12-17 05:12 | NUR ---
LAB WORK DRAWN FROM CENTRAL LINE. FLUSHED PER PROTOCOL.
--- NOTE | 2018-12-17 05:38 | NUR ---
UP TO BSC FOR SCANT BM. PT DECLINES BATH AT THIS TIME. VERBALIZES THAT SHE WANTS TO GO HOME AND ASKING WHEN DR. VELIZ IS COMING IN.
[2018-12-17 06:03] LABS: ANION GAP 11 (6-22 (CALC)); BUN 29 mg/dL (7-17); BUN/CREATININE RATIO 26 (12-20 (CALC)); CARBON DIOXIDE 31 mmol/l (22-30); CHLORIDE 93 mmol/l (95-108); CREATININE 1.1 mg/dL (0.5-1.0); GFR 51 ML/MIN (>=60 (CALC)); GFR FOR AFR.AMER. > 60 ML/MIN (>=60 (CALC)); SODIUM 133 mmol/l (137-146)
[2018-12-17 07:00] VITALS: BP 145/77
--- NOTE | 2018-12-17 07:15 | NUR ---
PATIENT ASSISTED TO BEDSIDE COMMODE. HAD MODERATE BROWN FORMED BOWEL MOVEMENT. ALERT AND ORIENETD X4. ON ROOM AIR. NO ACUTE DISTRESS SHOWN. RIJ INTACT, FLUSHED AND BLOOD RETURN IS PROPER. WYNN CATHETER IN PLACE. CALL LIGHT WITHIN REACH. PATIENT DOES NOT COOPERATE AT TIMES. AFEBRILE. SINUS RHYTHM.
[2018-12-17 08:00] VITALS: BP 121/68
--- NOTE | 2018-12-17 08:12 | NUR ---
DR VELIZ IN TO SEE PATIENT AND EXPLAIN PLAN OF CARE, PATIENT WILL BE DISCHARGED. WYNN CATHETER DISCONTINUED, SHE WILL HAVE TO VOID BEFORE LEAVING PER DR VELIZ. IV FLUIDS DISCONTINUED. PATIENT IS IMPATIENT TO GO HOME. SHE PULLED OFF HER TELEMETRY LEADS OFF. EXPLAINED TO PATIENT SHE WILL HAVE TO VOID BEFORE SHE LEAVES WELL DISCHARGE PAPERWORK WILL HAVE TO GET READY. PATIENT UP AND REPORTS SHE WANTS TO GO OUT ANS SMOKE AND SHE NEEDS A "COKE." CALL LIGHT WITHIN REACH. PATIENT DRESSED HERSELF ALREADY.
--- NOTE | 2018-12-17 09:10 | NUR ---
RIJ WAS DISCONTINUED. NO REDNESS OR TENDERNESS. NO BLEEDING. DRESSING PLACED TO PROTECT. DISCHARGE INSTRUCTIONS WERE EXPLAINED TO PATIENT. ALL QUESTIONS ANSWERED. PATIENT ADIMANT TO BE DISCHARGED.
--- NOTE | 2018-12-17 10:24 | NUR ---
Discharge instructions given. Patient verbalizes understanding of same. Discharged in stable condition via Wheelchair to Home with *Other. All belongings sent with pt. pt has been explained to take all medication bottles to Dr Cuellar's office today for MD reviewal and continuation;
== END 2018-12-17 09:18 | disposition home or self-care (01) | DRG 641 ==
LOC: ED 09:24 → ED-I 10:32 → ED 11:24 → ICU 11:25
PROVIDERS: Family Medicine; ADMIT Internal Medicine Geriatric Medicine; ATTEND Internal Medicine Geriatric Medicine
PROC: 05HM33Z Insertion of Infusion Device into Right Internal Jugular Vein, Percutaneous Approach (ICD-10-PCS; principal; 2018-12-15)
PROC: 0T9B70Z Drainage of Bladder with Drainage Device, Via Natural or Artificial Opening (ICD-10-PCS; 2018-12-15)
DX: E83.52 Hypercalcemia (principal); T50.3X5A Adverse effect of electrolytic, caloric and water-balance agents, initial encounter; E83.41 Hypermagnesemia; E89.2 Postprocedural hypoparathyroidism; E89.0 Postprocedural hypothyroidism; E83.51 Hypocalcemia; E83.42 Hypomagnesemia; J44.9 Chronic obstructive pulmonary disease, unspecified; I48.0 Paroxysmal atrial fibrillation; E11.65 Type 2 diabetes mellitus with hyperglycemia; E11.51 Type 2 diabetes mellitus with diabetic peripheral angiopathy without gangrene; F17.200 Nicotine dependence, unspecified, uncomplicated; Z91.19 Patient's noncompliance with other medical treatment and regimen
CPT/HCPCS: J1644

== ENCOUNTER 2019-01-17 18:24 | Observation (INO) | payer MEDICARE ==
[~2019-01-17] VITALS: Ht 175.3 cm; Wt 65.0 kg
--- NOTE | 2019-01-17 18:35 | NUR ---
PATIENT TO ROOM VIA EMS. EMS REPORTS ACCUCHECK 430, PATIENT NOW REQUESTING FOOD.
--- NOTE | 2019-01-17 18:55 | NUR ---
IN ROOM PT. HAD REMOVED EMS IV SITE, PT. INCONTINENT OF A MODERATE AMT SOFT BROWN BM, COMPLETE BED BATH GIVEN . PT. STATES SHE DOES NOT KNOW WHY SHE IS HERE TODAY. SKIN WARM AND DRY TO TOTOUCH, COLOR WNL, RESP. EVEN AND UNLABORED, NO C/O PAIN OR DISCOMFORT OFFERED.
[2019-01-17 19:39] LABS: IMMATURE GRANULOCYTES 0.5 % (0.0-5.0); MEAN CELL VOLUME 92.3 fL CALC (80.0-100.0); MEAN CORPUSCULAR HGB 31.7 pG CALC (26.0-32.0); MEAN CORPUSCULAR HGB CONC 34.3 g/L CALC (32.0-36.0); NEUT# 9.57 thou/uL (2.00-7.15); RED BLOOD COUNT 3.79 mill/uL (4.20-5.60); RED CELL DISTRI WIDTH 13.2 % (11.5-15.5)
[2019-01-17 19:42] LABS: URINE BILIRUBIN - DIPSTICK NEGATIVE (NEGATIVE); URINE BLOOD DIPSTICK NEGATIVE (NEGATIVE); URINE COLOR YELLOW; URINE GLUCOSE - DIPSTICK >=1000 mg/dL (NEGATIVE); URINE KETONE NEGATIVE (NEGATIVE); URINE LEUK ESTERASE NEGATIVE (NEGATIVE); URINE NITRITE - DIPSTICK NEGATIVE (Negative); URINE PH 5.5 (4.5-8.0); URINE PROTEIN - DIPSTICK NEGATIVE (NEG-TRACE); URINE UROBILINOGEN - DIPSTICK 0.2 E.U./dL (0.2)
[2019-01-17 19:49] LABS: BARBITURATES NEGATIVE (NEGATIVE); COCAINE NEGATIVE (NEGATIVE); METHADONE NEGATIVE (NEGATIVE); OXCYCODONE NEGATIVE (NEGATIVE); TETRAHYDROCANNABIONOL NEGATIVE (NEGATIVE); TRICYLIC ANTIDEPRESSANTS NEGATIVE (NEGATIVE)
[2019-01-17 19:52] LABS: ALBUMIN 4.2 g/dL (3.2-5.0); ALKALINE PHOSPHATASE 68 u/l (38-126); BUN 21 mg/dL (7-17); BUN/CREATININE RATIO 28 (12-20 (CALC)); CHLORIDE 94 mmol/l (95-108); CREATININE 0.8 mg/dL (0.5-1.0); ETHYL ALCOHOL 0 mg/dl (0-30); GFR > 60 ML/MIN (>=60 (CALC)); GFR FOR AFR.AMER. > 60 ML/MIN (>=60 (CALC)); MAGNESIUM 1.5 mg/dL (1.6-2.3); SGOT/AST 14 u/l (14-36); TOTAL PROTEIN 6.6 g/dL (6.3-8.2)
--- NOTE | 2019-01-17 19:55 | NUR ---
RESTING QUIETLY ON STERTCHER, NO C/O NO SEIZURE ACTIVITY NOTED.
[2019-01-17 20:02] LABS: ANION GAP 15 (6-22 (CALC)); BILIRUBIN, TOTAL 0.3 mg/dL (0.0-1.4); CARBON DIOXIDE 22 mmol/l (22-30); SODIUM 127 mmol/l (137-146)
[2019-01-17 20:22] LABS: TSH, 3RD GENERATION 0.91 uIU/mL (0.47 - 4.68)
--- NOTE | 2019-01-17 20:55 | NUR ---
PT. INCONTINENT OF A SMALL AMT. SOFT BROWN STOOL, DILLON CARE GIVEN.
--- NOTE | 2019-01-17 21:12 | NUR ---
PO MAG-OX AND IV CALCIUM GLUCONATE GIVEN PER MD ORDER.
--- NOTE | 2019-01-17 21:30 | NUR ---
SQ INSULIN GIVEN PER MD ORDER.
--- NOTE | 2019-01-17 22:16 | NUR ---
Admission Note Report Given to: EDMUND ACEVEDO Transported by: Wheelchair X Stretcher Transported with: X Nurse Transporter X Patent IV O2 Gear Coding Machine Operator
--- NOTE | 2019-01-17 22:22 | NUR ---
PT. TAKEN TO [place] FLOOR VIA STRETCHER.
[2019-01-17 22:30] VITALS: BP 116/57
--- NOTE | 2019-01-17 22:30 | NUR ---
PT ARRIVED TO FLOOR VIA STRETCHER. PT ALERT TO SELF BUT DROWSY. PT AMBULATED FROM STRETCHER TO BED WITH STAND BY ASSIST. IV SITE APPEARS HEALTHY. ACCUCHECK OBTAINED 206. PT DENIES ANY PAIN OR DISCOMFORT. ORIENTED TO ROOM AND CALL LIGHT SYSTEM. CALL LIGHT WITHIN REACH. WILL CONTINUE TO MONITOR.
--- NOTE | 2019-01-18 00:48 | NUR ---
PT NOTED TO BE DIAPHORETIC AND DROWSY. ACCUCHECK OBTAINED RESULTING IN A CRITICALLY LOW RESULT. STAT BLOOD DRAW OBTAINED TO CONFIRM RESULTS. PRN AMP OF D50 ADMINISTERED AT THIS TIME. PT AROUSABLE AND ASSISTED TO SIT UP IN BED TO DRINK ORANGE JUICE. WILL CONTINUE TO MONITOR.
[2019-01-18 03:26] VITALS: BP 111/63
--- NOTE | 2019-01-18 03:26 | NUR ---
PT NOTED TO HAVE TEMP OF 94.9. PT REMAINS ALERT TO SELF AND DROWSY. BEAR HUGGER AND HEATED BLANKET APPLIED. WILL CONTINUE TO MONITOR.
--- NOTE | 2019-01-18 04:02 | NUR ---
TEMP NOW 96.1. BEAR HUGGE REMAINS IN PLACE AT THIS TIME. WILL CONTINUE TO MONITOR.
[2019-01-18 05:18] LABS: HEMATOCRIT 36.1 % (37.0-47.0); HEMOGLOBIN 12.7 g/dl (12.0-16.0); IMMATURE GRANULOCYTES 0.6 % (0.0-5.0); MEAN CELL VOLUME 90.7 fL CALC (80.0-100.0); MEAN CORPUSCULAR HGB 31.9 pG CALC (26.0-32.0); MEAN CORPUSCULAR HGB CONC 35.2 g/L CALC (32.0-36.0); NEUT# 9.57 thou/uL (2.00-7.15); RED BLOOD COUNT 3.98 mill/uL (4.20-5.60); RED CELL DISTRI WIDTH 13.1 % (11.5-15.5)
[2019-01-18 05:39] LABS: MAGNESIUM 1.7 mg/dL (1.6-2.3)
[2019-01-18 05:50] LABS: ALBUMIN 3.9 g/dL (3.2-5.0); ALKALINE PHOSPHATASE 64 u/l (38-126); ANION GAP 12 (6-22 (CALC)); BILIRUBIN, TOTAL 0.3 mg/dL (0.0-1.4); BUN 18 mg/dL (7-17); BUN/CREATININE RATIO 27 (12-20 (CALC)); CARBON DIOXIDE 24 mmol/l (22-30); CHLORIDE 103 mmol/l (95-108); CREATININE 0.7 mg/dL (0.5-1.0); GFR > 60 ML/MIN (>=60 (CALC)); GFR FOR AFR.AMER. > 60 ML/MIN (>=60 (CALC)); POTASSIUM 3.5 mmol/l (3.5-5.1); SGOT/AST 13 u/l (14-36); SODIUM 135 mmol/l (137-146); TOTAL PROTEIN 6.2 g/dL (6.3-8.2)
[2019-01-18 06:11] LABS: TSH, 3RD GENERATION 0.46 uIU/mL (0.47 - 4.68)
[2019-01-18 07:45] VITALS: BP 96/58
--- NOTE | 2019-01-18 07:45 | NUR ---
ASSESSMENT IS COMPELETED: IV SITE IS FREE FROM REDNESS OR EDEMA. HR IS REG,PULSES ARE STRONG X4, ABD IS SOFT WITH ACTIVE BS. BREATH SOUNDS ARE DIMINISHED. CONTINUE TO OSBERVE AND MONITOR.
--- NOTE | 2019-01-18 08:10 | NUR ---
IN TO SEE PT. WANTED TO SPEAK WITH PT'S TIA.
--- NOTE | 2019-01-18 09:15 | NUR ---
IV SITE CAME OUT. NEW ONE PLACED IN RFA WITH 1 ATTEMPT #22 IN RFA. PT TOLERATED WELL.
--- NOTE | 2019-01-18 09:35 | NUR ---
CALLED DR VELIZ'S OFFICE RE: PT'S FELLA IN TO VISIT WITH HER, SPOKE WITH HIM TO INFORM OF WHAT HAPPENED TO PT.
--- NOTE | 2019-01-18 12:20 | NUR ---
PT IS RESTING IN BED WITH NO DISTRESS NOTED. IV SITE IS FREE FROM REDNESS OR EDEMA.
[2019-01-18] MEDS ORDERED: GLIPIZIDE10 M2 PO (12:48)
[2019-01-18] MEDS ORDERED: LEVOTHYROXIN50 MC1 PO (12:49)
[2019-01-18] MEDS ORDERED: LASIX 40 MG TAB40 MG PO (12:49)
[2019-01-18] MEDS ORDERED: LEVOTHYROXIN200 MC2 PO (12:50)
[2019-01-18] MEDS ORDERED: METFORMIN1000 MG PO (12:51)
[2019-01-18] MEDS ORDERED: ENALAPRIL10 MG PO (12:51)
[2019-01-18] MEDS ORDERED: CALCI17 PO (12:55)
[2019-01-18] MEDS ORDERED: MAGNESIUM400 M1 PO (12:56)
[2019-01-18] MEDS ORDERED: FISH OIL1000 M2 PO (12:57)
[2019-01-18 14:50] VITALS: BP 142/79
[2019-01-18 15:25] VITALS: BP 100/54
--- NOTE | 2019-01-18 18:59 | NUR ---
REPORT FROM GOLDY ACEVEDO. PT NOTED TO BE RESTING IN BED. PT REQUESTING SNACK AND COFFEE. WILL PROVIDED SNACK ONCE ACCUCHECK IS OBTAINED. PT ALERT AND ORIENTED. PT DENIES ANY PAIN OR DISCOMFORT. DISCUSSED POC. PT VERBALIZED UNDERSTANDING. IV SITE APPEARS HEALTHY. CALL LIGHT WITHIN REACH. WILL CONTINUE TO MONITOR.
[2019-01-18 19:30] VITALS: BP 102/61
--- NOTE | 2019-01-18 20:41 | NUR ---
ASSISTED PT TO BSC. PT VOIDED WITHOUT DIFFICULTY. ASSISTED PT BACK TO BED. CALL LIGHT WITHIN REACH. WILL CONTINUE TO MONITOR.
[2019-01-19] VITALS (7 sets, daily range): BP systolic 90–112; BP diastolic 46–63
--- NOTE | 2019-01-19 00:27 | NUR ---
PT ASSISTED TO BSC. VOIDED WITHOUT DIFFICULTY. NO DISTRESS NOTED. CALL LIGHT WITHIN REACH. WILL CONTINUE TO MONITOR.
--- NOTE | 2019-01-19 04:28 | NUR ---
CHEMICAL RECLAMATION EQUIPMENT OPERATOR IN ROOM AT THIS TIME OBTAINING LABS.
[2019-01-19 05:11] LABS: HEMATOCRIT 30.8 % (37.0-47.0); IMMATURE GRANULOCYTES 0.4 % (0.0-5.0); MEAN CELL VOLUME 92.2 fL CALC (80.0-100.0); MEAN CORPUSCULAR HGB CONC 34.7 g/L CALC (32.0-36.0); NEUT# 3.89 thou/uL (2.00-7.15); RED BLOOD COUNT 3.34 mill/uL (4.20-5.60); RED CELL DISTRI WIDTH 13.4 % (11.5-15.5)
[2019-01-19 05:19] LABS: HEMOGLOBIN 10.7 g/dl (12.0-16.0)
[2019-01-19 07:10] LABS: ALKALINE PHOSPHATASE 50 u/l (38-126); ANION GAP 8 (6-22 (CALC)); BILIRUBIN, TOTAL 0.3 mg/dL (0.0-1.4); BUN 16 mg/dL (7-17); BUN/CREATININE RATIO 24 (12-20 (CALC)); CARBON DIOXIDE 24 mmol/l (22-30); CHLORIDE 108 mmol/l (95-108); CREATININE 0.7 mg/dL (0.5-1.0); GFR > 60 ML/MIN (>=60 (CALC)); GFR FOR AFR.AMER. > 60 ML/MIN (>=60 (CALC)); MAGNESIUM 1.5 mg/dL (1.6-2.3); POTASSIUM 3.8 mmol/l (3.5-5.1); SGOT/AST 12 u/l (14-36); SODIUM 136 mmol/l (137-146); TOTAL PROTEIN 5.3 g/dL (6.3-8.2)
[2019-01-19 07:24] LABS: ALBUMIN 3.1 g/dL (3.2-5.0)
--- NOTE | 2019-01-19 07:34 | NUR ---
CALLED FOR CALCIUM 5.9 ORDERS FOR IV CALCIUM INFUSION.
--- NOTE | 2019-01-19 08:33 | NUR ---
PT RETURNED TO BED FROM BSC, DISCUSSED AM PO MEDS AND INFUSION OF CALCIUM GLUCONATE, PT IN AGREEMENT. STARTED INFUSION, PT TOLERATING WELL. PT ALERT AND ORIENTED X3, PARTIAL R FOOT AMPUTEE, SKIN INTACT. DISCUSSED POC, PT AGREES. ASSESSMENT COMPLETED, CALL LIGHT IN REACH,CONTINUE TO MONITOR.
--- NOTE | 2019-01-19 10:30 | NUR ---
CALCIUM INFUSION COMPLETED, PT VOICES NO NEEDS OR COMPLAINTS AT THIS TIME. CALL LIGHT IN REACH,CONTINUE TO MONITOR.
--- NOTE | 2019-01-19 15:42 | NUR ---
PT ASSISTED TO BSC, NO SIGNS OF DISTRESS NOTED, RESP EVEN AND UNLABORED. VOICES NO NEEDS OR COMPLAINTS AT THIS TIME, CALL LIGHT IN REACH,CONTINUE TO MONITOR.
--- NOTE | 2019-01-19 16:53 | NUR ---
CALL MADE TO TO INFORM HIM OF CALCIUM RESULT. ORDERS RECEIVED FOR ANOTHER 2GM INFUSION.PT IN AGREEMENT, CALL LIGHT IN REACH,CONTINUE TO MONITOR.
--- NOTE | 2019-01-19 18:13 | NUR ---
CALCIUM GLUCONATE INFUSION INITIATED.
--- NOTE | 2019-01-19 21:57 | NUR ---
PT MEDICATED ORDERS PROVIDE AND ASSESSEMENT COMPLETED. LUNG SOUNDS ARE DIM, PT PARTIALLY UNCOOPERATIVE TO ASSESSMENT, REFUSES DEEP BREATHS OR REPOSITIONING FOR ABD SOUND AUSCULATING. DENIES ABD TENDERNESS. WILL CONINTUE TO MONITOR. PT HAS BEEN PROVIDED SNACK AND STATES THAT SHE ATE KRISTEN CRACKERS AND MILK.
--- NOTE | 2019-01-20 01:45 | NUR ---
IV FLUIDS REPLENISHED, AIDE IS IN W/PT ASSISTING TO BSC. DENIES ANY OTHER NEEDS AT THIS TIME. NO S/O DISTRESS NOTED.
[2019-01-20 04:41] VITALS: BP 120/72
[2019-01-20 05:32] LABS: HEMATOCRIT 31.4 % (37.0-47.0); HEMOGLOBIN 10.7 g/dl (12.0-16.0); IMMATURE GRANULOCYTES 0.3 % (0.0-5.0); MEAN CORPUSCULAR HGB CONC 34.1 g/L CALC (32.0-36.0); NEUT# 3.78 thou/uL (2.00-7.15); RED BLOOD COUNT 3.34 mill/uL (4.20-5.60); RED CELL DISTRI WIDTH 13.4 % (11.5-15.5)
[2019-01-20 05:47] LABS: ALBUMIN 3.1 g/dL (3.2-5.0); ALKALINE PHOSPHATASE 53 u/l (38-126); ANION GAP 11 (6-22 (CALC)); BILIRUBIN, TOTAL 0.3 mg/dL (0.0-1.4); BUN 15 mg/dL (7-17); BUN/CREATININE RATIO 24 (12-20 (CALC)); CARBON DIOXIDE 23 mmol/l (22-30); CHLORIDE 108 mmol/l (95-108); CREATININE 0.6 mg/dL (0.5-1.0); GFR > 60 ML/MIN (>=60 (CALC)); GFR FOR AFR.AMER. > 60 ML/MIN (>=60 (CALC)); MAGNESIUM 1.4 mg/dL (1.6-2.3); SODIUM 138 mmol/l (137-146); TOTAL PROTEIN 5.4 g/dL (6.3-8.2)
[2019-01-20 05:49] LABS: SGOT/AST 24 u/l (14-36)
[2019-01-20 08:10] VITALS: BP 93/45
--- NOTE | 2019-01-20 08:10 | NUR ---
ASSESSMENT IS COMPLETED: IV SITE IS FREE FROM REDNESS OR EDEMA. HR IS REG, PULSES ARE STRONG X4, ABD IS SOFT WITH ACTIVE BS. BREATH SOUNDS ARE CLEAR BILATERALLY. CONTINUE TO OBSERVE AND MONITOR.
--- NOTE | 2019-01-20 12:35 | NUR ---
PT IS RELAXING IN BED WITH NO DISTRESS NOTED. IV SITE IS FREE FROM REDNESS OR EDEMA.
[2019-01-20 15:55] VITALS: BP 127/56
--- NOTE | 2019-01-20 16:45 | NUR ---
PT HAS BEEN UP AND DOWN ON THE BSC, ATTEMPTING TO HAVE A BM. HAD 1 MODERATE, C/O STILL HAS A LARGE STOOL TRYING TO GET IT OUT. IV SITE IS FREE FROM REDNESS OR EDEMA.
--- NOTE | 2019-01-20 18:04 | NUR ---
PT C/O CONSTIPATION, WENT TO GIVE HER THE WIPES TO WIPE HER BOTTOM AND HANDS SHE THREW THE WIPES ACROSS THE ROOM. MOVED HER BED AND GAVE HER THE TOILET PAPER BACK. ALSO GAVE HER MOM AND HOT TEA.
--- NOTE | 2019-01-20 19:00 | NUR ---
RECEIVED REPORT FROM NURSE [place], PATIENT IN BED, DENIES PAIN AND DISCOMFORTS AT THIS TIME, EVEN UNLABORED BREATHING CALL LIGHT AT REACH.
[2019-01-20 19:36] VITALS: BP 125/72
--- NOTE | 2019-01-20 21:00 | NUR ---
PATIENT RESTING IN BED, RESQUESTING MILK AND KRISTEN CRACKER, PROVIDE WITH SNACK, PATIENT ALERT AND ORIENTED, WITH AN ONGOING IV OF D5 1/2 NORMAL SALINE @ 75CC/HR INFUSING WELL ON RFA, DENIES PAIN OR DISCOMFORTS AT THIS TIME, LAST BM 01/20 MODERATE AMT, BS 215, WILL GIVE DUE INSULIN.
--- NOTE | 2019-01-21 00:05 | NUR ---
PATIENT CURRENTLY RESTING IN BED, WATCHING TV, EVEN UNLABORED BREATHING CALL LIGHT AT REACH.
[2019-01-21 04:39] VITALS: BP 129/63
--- NOTE | 2019-01-21 04:56 | NUR ---
PATIENT RESTING IN BED, EYES CLOSED, NO DISCOMFORTS NOTED AT THIS TIME.CALL LIGHT AT REACH.
[2019-01-21 05:35] LABS: HEMATOCRIT 32.8 % (37.0-47.0); HEMOGLOBIN 11.1 g/dl (12.0-16.0); IMMATURE GRANULOCYTES 0.3 % (0.0-5.0); MEAN CELL VOLUME 92.4 fL CALC (80.0-100.0); MEAN CORPUSCULAR HGB 31.3 pG CALC (26.0-32.0); MEAN CORPUSCULAR HGB CONC 33.8 g/L CALC (32.0-36.0); NEUT# 6.07 thou/uL (2.00-7.15); RED BLOOD COUNT 3.55 mill/uL (4.20-5.60); RED CELL DISTRI WIDTH 13.4 % (11.5-15.5)
[2019-01-21 06:09] LABS: ALBUMIN 3.1 g/dL (3.2-5.0); ALKALINE PHOSPHATASE 65 u/l (38-126); ANION GAP 11 (6-22 (CALC)); BILIRUBIN, TOTAL 0.3 mg/dL (0.0-1.4); BUN 16 mg/dL (7-17); BUN/CREATININE RATIO 24 (12-20 (CALC)); CARBON DIOXIDE 24 mmol/l (22-30); CHLORIDE 107 mmol/l (95-108); CREATININE 0.6 mg/dL (0.5-1.0); GFR > 60 ML/MIN (>=60 (CALC)); GFR FOR AFR.AMER. > 60 ML/MIN (>=60 (CALC)); MAGNESIUM 1.6 mg/dL (1.6-2.3); POTASSIUM 4.2 mmol/l (3.5-5.1); SGOT/AST 22 u/l (14-36); SODIUM 138 mmol/l (137-146); TOTAL PROTEIN 5.4 g/dL (6.3-8.2)
--- NOTE | 2019-01-21 06:45 | NUR ---
EKG DONE AT THIS TIME.
--- NOTE | 2019-01-21 07:20 | NUR ---
REPORT RECEIVED FROM LEELA DON;PT APPEARS TO BE SLEEPING IN SUPINE POSITION;NO S/S OF DISTRESS NOTED;RESPIRATIONS EVEN AND UNLABORED ON RA;IV FLUIDS CONTINUE TO INFUSE WITH EASE PER ORDER;ALL SAFETY PRECAUTIONS REINFORCED INCLUDING SEIZURE PRECAUTIONS;FALL PRECAUTIONS NOTED WITH BED IN THE LOWEST POSITION AND CALL LIGHT IN REACH;WILL CONTINUE TO MONITOR
--- NOTE | 2019-01-21 08:00 | NUR ---
PT RESTING IN SUPINE POSITION, A&O X3 WITH FLAT AFFECT;VS OBTAINED AND ASSESSMENT COMPLETED;PT DENIES ANY CURRENT PAIN OR DISCOMFORTS,PAIN SCALE AND REPORTING EDUCATED;RESPIRATIONS EVEN AND UNLABORED ON RA,CLEAR LUNG SOUNDS;ABDOMEN SOFT ON PALPATION AND ACTIVE IN ALL 4 QUADRANTS;RIGHT PARTIAL FOOT AMPUTEE NOTED, STRONG LEFT PEDAL PULSE;SKIN INTACT;#22G TO LEFT FOREARM INFUSING D5 1/2 NS @ 100ML/HR,SITE APPEARS HEALTHY;ACCUCHECK 209, PT COVERED WITH SLIDING SCALE NOVOLOG PER ORDER;SEIZURE PRECAUTIONS IN PLACE;PT DENIES ANY ADDITIONAL NEEDS AND IS ENCOURAGED TO CALL FOR ASSISTANCE IF NEEDED;CALL LIGHT IN REACH;WILL CONTINUE TO MONITOR
[2019-01-21 08:02] VITALS: BP 113/64
--- NOTE | 2019-01-21 08:05 | NUR ---
AT BEDSIDE DISCUSSING POC.
--- NOTE | 2019-01-21 11:25 | NUR ---
PT RESTING IN SEMI FOWLERS POSITION;RESPIRATIONS EVEN AND UNLABORED ON RA;PT DENIES ANY CURRENT PAIN OR NEEDS;ACCUCHECK 162, PT COVERED WITH SLIDING SCALE NOVOLOG PER ORDER;PT DENIES ANY ADDITIONAL NEEDS AND IS ENCOURAGED TO CALL FOR ASSISTANCE IF NEEDED;CALL LIGHT IN REACH;WILL CONTINUE TO MONITOR
[2019-01-21 12:00] VITALS: BP 110/60
--- NOTE | 2019-01-21 15:50 | NUR ---
PT APPEARS TO BE SLEEPING IN SUPINE POSITION;RESPIRATIONS EVEN AND UNLABORED ON RA;NO S/S OF DISTRESS NOTED;SEIZURE PRECAUTIONS IN PLACE;ASSESSMENT REMAINS UNCHANGED AT THIS TIME;FALL PRECAUTIONS IN PLACE WITH BED IN THE LOWEST POSITION AND CALL LIGHT IN REACH;WILL CONTINUE TO MONITOR
[2019-01-21 16:02] VITALS: BP 136/66
--- NOTE | 2019-01-21 19:00 | NUR ---
REPORT RECEIVED FROM KRISTINA LIZAMA. PT RESTING IN BED WITH EYES CLOSED. NO S/S OF DISTRESS. WILL CONTINUE TO MONITOR.
[2019-01-21 19:36] VITALS: BP 130/67
--- NOTE | 2019-01-21 19:50 | NUR ---
BROUGHT PT SOCKS PER REQUEST. ASSISTED PT CHANGE GOWN AND SOCKS. PT ALERT AND ORIENTED. RESPIRATIONS ARE EVEN AND UNLABORED ON RA. PT DENIES ANY PAIN OR DISCOMFORT. PT ASKING FOR ICE CREAM. SAFETY PRECAUTIONS IN PLACE. WILL CONTINUE TO MONITOR.
--- NOTE | 2019-01-21 20:15 | NUR ---
BROUGHT PT ICE CREAM. ASKED PT IF THERE WAS ANYTHING ELSE SHE NEEDED PT ROLLED HRE EYES AND SIGHED STATING " YEAH JUICE AND SOME GRAM CRACKERS" BROUGHT PT APPLE JUICE AND GRAM CRACKERS. PT RESTING IN BED NO S/S OF DISTRESS. ASKED PT IF SHE WOULD LIKE THE DOOR OPEN OR CLOSED PT REPLIED "IF YOU CLOSE THE DOOR I'LL GET DRESSED AND LEAVE." DOOR LEFT OPEN PER PT REQUEST.SAFETY PRECAUTIONS IN PLACE. WILL CONTINUE TO MONITOR.
--- NOTE | 2019-01-22 01:30 | NUR ---
PT AMBULATING IN ROOM WITH STEADY GATE. NO S/S OF DISTRESS. SAFETY PRECAUTIONS IN PLACE, WILL CONTINUE TO MONITOR.
[2019-01-22 04:02] VITALS: BP 106/56
--- NOTE | 2019-01-22 04:33 | NUR ---
PT RESTING IN BED. NO S/S OF DISTRESS AT THIS TIME. SAFETY PRECAUTIONS IN PLACE. WILL CONTINUE TO MONITOR.
[2019-01-22 06:22] LABS: ALBUMIN 3.3 g/dL (3.2-5.0); ALKALINE PHOSPHATASE 68 u/l (38-126); ANION GAP 12 (6-22 (CALC)); BILIRUBIN, TOTAL 0.3 mg/dL (0.0-1.4); BUN 13 mg/dL (7-17); BUN/CREATININE RATIO 21 (12-20 (CALC)); CARBON DIOXIDE 25 mmol/l (22-30); CHLORIDE 103 mmol/l (95-108); CREATININE 0.6 mg/dL (0.5-1.0); GFR > 60 ML/MIN (>=60 (CALC)); GFR FOR AFR.AMER. > 60 ML/MIN (>=60 (CALC)); POTASSIUM 4.2 mmol/l (3.5-5.1); SGOT/AST 11 u/l (14-36); SODIUM 136 mmol/l (137-146); TOTAL PROTEIN 5.7 g/dL (6.3-8.2)
--- NOTE | 2019-01-22 07:10 | NUR ---
REPORT RECEIVED FROM ALEXIARN;PT RESTING AT BEDSIDE REPORTING EAGERNESS TO GO HOME;INTRODUCED SELF TP PT AND POC DISCUSSED;RESPIRATIONS EVEN AND UNLABORED ON RA;PT DENIES ANY CURRENT PAIN;ENCOURAGED TO CALL FOR ASSISTANCE IF NEEDED;FALL AND SEIZURE PRECAUTIONS IN PLACE;CALL LIGHT IN REACH;WILL CONTINUE TO MONITOR
--- NOTE | 2019-01-22 07:40 | NUR ---
PT RESTING AT BEDSIDE, A&O X3;VS OBTAINED AND ASSESSMENT COMPLETED;PT DENIES ANY CURRENT PAIN OR DISCOMFORTS, PAIN SCALE AND REPORTING EDUCATED;RESPIRATIONS EVEN AND UNLABORED ON RA,CLEAR LUNG SOUNDS;ABDOMEN SOFT ON PALPATION AND ACTIVE IN ALL 4 QUADRANTS;PT IS A RIGHT PARTIAL FOOT AMPUTEE, STRONG LEFT PEDAL PULSE;SKIN INTACT;#22G TO RIGHT FOREARM FLUSHED AND PATENT,SITE APPEARS HEALTHY;ACCUCHECK 153, PT COVERED WITH SLIDING SCALE INSULIN PER ORDER;PT DENIES ANY ADDITIONAL NEEDS AND IS ENCOURAGED TO CALL FOR ASSISTANCE IF NEEDED;FALL AND SEIZURE PRECAUTIONS IN PLACE WITH CALL LIGHT IN REACH;WILL CONTINUE TO MONITOR
[2019-01-22 07:42] VITALS: BP 108/59
--- NOTE | 2019-01-22 08:40 | NUR ---
AT BEDSIDE DISCUSSING POC INCLUDING D/C HOME.
--- NOTE | 2019-01-22 08:50 | NUR ---
ALL DISCHARGE INSTRUCTIONS PROVIDED;IV SITE REMOVED WITH CATHETER INTACT;PT REFUSES TO REMAIN IN HER ROOM UNTIL TAXI ARRIVES STATING "I CAN DO WHATEVER I DAMN WELL LIKE", PT REFUSES WHEELCHAIR FOR DISCHARGE HOME.
--- NOTE | 2019-01-22 08:56 | NUR ---
Discharge instructions given. Patient verbalizes understanding of same. Discharged in stable condition via Ambulatory to Home with *Other. All belongings sent with pt. Pt ambulated to [facility] with a weak gait awaiting taxi for transportation home. pt refuses a wheelchair.
== END 2019-01-22 08:56 | disposition home or self-care (01) ==
LOC: ED 18:24 → ED-I 20:43 → ED 21:02 → MS2 21:03 → ED 21:03 → MS2 21:03 → ED-I 21:03 → MS2 01-22 08:56
PROVIDERS: Family Medicine; ADMIT Internal Medicine Geriatric Medicine; ATTEND Internal Medicine Geriatric Medicine
DX: G40.409 Other generalized epilepsy and epileptic syndromes, not intractable, without status epilepticus (principal); I11.0 Hypertensive heart disease with heart failure; I50.9 Heart failure, unspecified; E83.51 Hypocalcemia; E83.42 Hypomagnesemia; T42.76XA Underdosing of unspecified antiepileptic and sedative-hypnotic drugs, initial encounter; E89.0 Postprocedural hypothyroidism; E89.2 Postprocedural hypoparathyroidism; J44.9 Chronic obstructive pulmonary disease, unspecified; I25.10 Atherosclerotic heart disease of native coronary artery without angina pectoris; E11.649 Type 2 diabetes mellitus with hypoglycemia without coma; I48.91 Unspecified atrial fibrillation; F17.200 Nicotine dependence, unspecified, uncomplicated; Z91.128 Patient's intentional underdosing of medication regimen for other reason

== ENCOUNTER 2019-02-27 18:06 | Inpatient (IN) | payer MEDICARE ==
[~2019-02-27] VITALS: Ht 175.3 cm; Wt 71.9 kg
[~2019-02-27 18:06] MED LIST changes: +CALCI17 PO; +FISH OIL1000 M2 PO; +MAGNESIUM400 M1 PO
--- NOTE | 2019-02-27 18:06 | NUR ---
PT TO ROOM VIA EMS STRETCHER. PT A&O X 2.
--- NOTE | 2019-02-27 18:31 | NUR ---
PT UNAWARE THAT SHE HAS HAD SEIZURES TODAY, APPEARS POSTICTAL PER GROGGY APPEARANCE.
[2019-02-27 18:53] LABS: HEMATOCRIT 37.1 % (37.0-47.0); IMMATURE GRANULOCYTES 0.8 % (0.0-5.0); MEAN CELL VOLUME 90.5 fL CALC (80.0-100.0); MEAN CORPUSCULAR HGB 31.7 pG CALC (26.0-32.0); NEUT# 6.84 thou/uL (2.00-7.15); RED BLOOD COUNT 4.1 mill/uL (4.20-5.60); RED CELL DISTRI WIDTH 13.1 % (11.5-15.5)
[2019-02-27 19:09] LABS: ALBUMIN 4.6 g/dL (3.2-5.0); ALKALINE PHOSPHATASE 64 u/l (38-126); ANION GAP 19 (6-22 (CALC)); BILIRUBIN, TOTAL 0.4 mg/dL (0.0-1.4); BUN 18 mg/dL (7-17); BUN/CREATININE RATIO 26 (12-20 (CALC)); CARBON DIOXIDE 24 mmol/l (22-30); CHLORIDE 92 mmol/l (95-108); CREATININE 0.7 mg/dL (0.5-1.0); GFR > 60 ML/MIN (>=60 (CALC)); GFR FOR AFR.AMER. > 60 ML/MIN (>=60 (CALC)); MAGNESIUM 1.3 mg/dL (1.6-2.3); POTASSIUM 4.3 mmol/l (3.5-5.1); SODIUM 131 mmol/l (137-146); TOTAL PROTEIN 7.2 g/dL (6.3-8.2)
[2019-02-27 19:12] LABS: SGOT/AST 30 u/l (14-36)
--- NOTE | 2019-02-27 19:25 | NUR ---
PT VOIDED ON BEDPAN. URINE SENT.
[2019-02-27 19:37] LABS: URINE BILIRUBIN - DIPSTICK NEGATIVE (NEGATIVE); URINE BLOOD DIPSTICK SMALL (NEGATIVE); URINE COLOR YELLOW; URINE GLUCOSE - DIPSTICK >=1000 mg/dL (NEGATIVE); URINE KETONE NEGATIVE (NEGATIVE); URINE LEUK ESTERASE NEGATIVE (NEGATIVE); URINE NITRITE - DIPSTICK NEGATIVE (Negative); URINE PROTEIN - DIPSTICK NEGATIVE (NEG-TRACE); URINE UROBILINOGEN - DIPSTICK 0.2 E.U./dL (0.2)
[2019-02-27 19:45] LABS: URINE WBC 0-2 WBC/hpf (0-5)
[2019-02-27 19:46] LABS: URINE SQUAMOUS EPITHELIAL CELL FEW EPI/hpf (0-FEW)
--- NOTE | 2019-02-27 19:51 | NUR ---
PT HAS SKIN TEAR TO RIGHT POSTERIOR WRIST. CLEANSED WITH SHURCLENS/NEOSPORIN/NON-ADHEARANT DRSG/4X4/TOI/DRESSINGNET. CSM +. NO ACTIVE BLEEDING.
--- NOTE | 2019-02-27 20:48 | NUR ---
REPORT CALLED TO EDMUND, TO FLOOR SOON.
--- NOTE | 2019-02-27 20:55 | NUR ---
PT ARRIVED TO FLOOR VIA STRETCHER ACCOMPAINED BY ER STAFF. PT ALERT AND ORIENTED X3. TRANSFERED VIA 3 PERSON ASSIST FROM STRETCHER TO BED. PT DID NOT AMBULATE AT THIS TIME. RESPIRATIONS EVEN AND UNLABORED. SKIN TEAR COVERED WITH DRY DRESSING NOTED TO RIGHT WRIST AND DIABETIC ULCER NOTED TO LEFT FOOT, DIRTY DRESSING REMOVED AND IMAGES OBTAINED, SULEMA, WILL F/U WITH PHYSICIAN FOR ORDERS. SOIL ODOROUS BRIEF REMOVED AT THIS TIME AND PERICARE PROVIDED, ALL OTHER SKIN INTACT. ORIENTED PT TO ROOM AND CALL LIGHT SYSTEM. PT DENIES ANY PAIN OR DISCOFMORT AT THIS TIME. IV SITE APPEARS HEALTHY AND FLUSHED WELL. SEIZURE PRECAUTIONS IN PLACE. DISCUSSED POC AND SAFETY PRECAUTIONS. CALL LIGHT WITHIN REACH AND BED IN LOWEST POSITION. WILL CONTINUE TO MONITOR.
[2019-02-27 21:07] VITALS: BP 94/53
--- NOTE | 2019-02-27 21:45 | NUR ---
CALCIUM GLUCONATE ORDER CLARIFIED AND WOUND CARE ORDERS RECEIEVED AT THIS TIME.
--- NOTE | 2019-02-28 00:59 | NUR ---
PT RESTING IN BED. IV FLUIDS INFUSING WITHOUT DIFFICULTY. PT HAS BEEN UP MULTIPLE TIMES TO BSC VOIDING 50-200CC AT A TIME. NO DISTRESS NOTED. CALL LIGHT WITHIN REACH. WILL CONTINUE TO MONITOR.
--- NOTE | 2019-02-28 02:27 | NUR ---
PT INCONTINENT OF STOOL. REFUSED SHOWER. PARTIAL BED BATH PROVIDED. LINENS CHANGED. IV FLUIDS INFUSING WITHOUT DIFFICULTY. PT DOES NOT VOICE ANY COMPLAINTS OR NEEDS AT THIS TIME. CALL LIGHT WITHIN REACH. WILL CONTINUE TO MONITOR.
[2019-02-28 04:00] VITALS: BP 115/71
[2019-02-28 05:18] LABS: ALKALINE PHOSPHATASE 59 u/l (38-126); ANION GAP 12 (6-22 (CALC)); BILIRUBIN, TOTAL 0.3 mg/dL (0.0-1.4); BUN 16 mg/dL (7-17); BUN/CREATININE RATIO 26 (12-20 (CALC)); CARBON DIOXIDE 26 mmol/l (22-30); CHLORIDE 101 mmol/l (95-108); CREATININE 0.6 mg/dL (0.5-1.0); GFR > 60 ML/MIN (>=60 (CALC)); GFR FOR AFR.AMER. > 60 ML/MIN (>=60 (CALC)); POTASSIUM 3.8 mmol/l (3.5-5.1); SGOT/AST 35 u/l (14-36); SODIUM 135 mmol/l (137-146); TOTAL PROTEIN 5.9 g/dL (6.3-8.2)
[2019-02-28 05:21] LABS: HEMOGLOBIN 12.4 g/dl (12.0-16.0); IMMATURE GRANULOCYTES 0.4 % (0.0-5.0); MEAN CELL VOLUME 91.4 fL CALC (80.0-100.0); MEAN CORPUSCULAR HGB 32.4 pG CALC (26.0-32.0); MEAN CORPUSCULAR HGB CONC 35.4 g/L CALC (32.0-36.0); NEUT# 7.9 thou/uL (2.00-7.15); RED BLOOD COUNT 3.83 mill/uL (4.20-5.60); RED CELL DISTRI WIDTH 13.2 % (11.5-15.5)
--- NOTE | 2019-02-28 05:22 | NUR ---
PT INCONTINENT OF STOOL. ASSISTED PT TO BSC UPON REQUEST. PT REFUSED SHOWER. PARTIAL BED BATH PROVIDED. LINENS CHANGED AT THIS TIME. ASSISTED BACK TO BED AND REPOSITIONED. CALL LIGHT WITHIN REACH. WILL CONTINUE TO MONITOR.
[2019-02-28 05:26] LABS: ALBUMIN 3.6 g/dL (3.2-5.0)
--- NOTE | 2019-02-28 06:59 | NUR ---
REPORT RECEIVED FROM KRISTINA SHAFFER; PT APPEARS TO BE SLEEPING. CALL YANG IN REACH.
--- NOTE | 2019-02-28 07:38 | NUR ---
PT A/O X3; ASSSITED TO BSC, VOIDED 700CC CLEAR, YELLOW URINE; VITALS OBTANED; #20 RAC; CALCIUM GLUCONATE INFUSING WITHOUT INCIDENT; SEIZURE PRECAUTION IN PLACE; DRESSING TO RT WRIST AND RT FOOT INTACT; ACCU CHECK 212, MEDICATED PER EMAR; PT NOW SITTING UP ON EDGE OF BED EATING BREAKFAST; BSC & CALL YANG IN REACH; PT ENCOURAGE TO CALL FOR ASSISTANCE;
--- NOTE | 2019-02-28 09:00 | NUR ---
[facility] STUDENTS WILL REVIEW PT'S HOME MEDS.
--- NOTE | 2019-02-28 10:31 | NUR ---
PT ASSISTED TO BSC AND BACK INTO BED; VOIDED CLEAR, YELLOW URINE;
--- NOTE | 2019-02-28 11:40 | NUR ---
PT SITTING UP ON IN BED EATING LUNCH; C/O OF RT SHOULDER PAIN, MEDICATED WITH TYLENOL; IVF D5 1/2 NS @100CC/HR; CALL YANG IN REACH. VOICE NO OTHER CONCERNS;
--- NOTE | 2019-02-28 14:03 | NUR ---
PT ASSISTED MULTIPLE TIMES TO BSC BY VENEER STAPLER AND PROGRAM DIRECTOR AIR TALENT; REFUSING TO GET WASHED UP; VOICE NO CONCERNS; CALL YANG IN REACH.
--- NOTE | 2019-02-28 15:51 | NUR ---
PT ASSISTED TO RECLINER; #20G IV INFLITRATE; FLUID STOPPED; IV REMOVED, CATH INTACT; SOMEONE FROM ER WILL START NEW IV; CALL YANG IN REACH.
[2019-02-28 16:00] VITALS: BP 100/57
--- NOTE | 2019-02-28 16:25 | NUR ---
PT SITTING UP IN BED; NEW IV #20G LAC, DONE BY JESUS (ICU) PT TOLERATED WELL; IVF RESTARTED AT PRESCRIBE RATE; CALL YANG IN REACH.
--- NOTE | 2019-02-28 17:22 | NUR ---
ASSISTED PT TO BSC, VOIDED 200CC CLEAR, YELLOW URINE; PT BACK INTO BED; IVF INFUSING WITHOUT DIFFICULTY; SITE APPEARS HEALTHY; CALL YANG IN REACH.
--- NOTE | 2019-02-28 17:55 | NUR ---
IV SITE FOUND INFILTRATED,SITE REMOVED WITH CATHETER INTACT. SECURED WITH COBAN.
--- NOTE | 2019-02-28 18:29 | NUR ---
ASSISTED PT TO BSC AND BACK INTO BED; ATTEMPT TO START NEW IV, BUT UNSUCCESSFUL; PT ANXIOUS OF GOING HOME TOMORROW; CALL YANG IN REACH.
--- NOTE | 2019-02-28 18:59 | NUR ---
REPORT FROM HECTOR ACEVEDO. PT OBSERVED SITTING UP AT BED SIDE. ALERT AND ORIENTED. NO IV SITE AT THIS TIME. DISCUSSED POC. PT VERBALIZED UNDERSTANDING. ENCOURAGED SAFETY PRECAUTIONS. PT DENIES ANY PAIN OR DISCOMFORT. NO RESPIRATORY DISTRESS NOTED. CALL LIGHT WITHIN REACH. WILL CONTINUE TO MONITOR.
[2019-02-28 19:00] VITALS: BP 119/51
--- NOTE | 2019-02-28 20:07 | NUR ---
Peripheral IV started. IV access obtained with #22 AutoGuard at Left Forearm with 1 IV stick attempts. Flushes easily with good blood return.
--- NOTE | 2019-03-01 00:06 | NUR ---
PT RESTING IN BED WITH EYES CLOSED. IV FLUIDS INFUSING WITHOUT DIFFICULTY. NO DISTRESS NOTED. CALL LIGHT WITHIN REACH. WILL CONTINUE TO MONITOR.
--- NOTE | 2019-03-01 04:37 | NUR ---
PT ASSISTED TO BSC. LINENS SOILED. LINENS CHANGED AT THIS TIME. ASSISTED BACK TO BED. IV FLUIDS INFUSING WITHOUT DIFFICULTY. FRESH WATER PROVIDED. CALL LIGHT WITHIN REACH. WILL CONTINUE TO MONITOR.
[2019-03-01 04:38] VITALS: BP 95/51
[2019-03-01 07:54] VITALS: BP 98/56
--- NOTE | 2019-03-01 09:49 | NUR ---
D/C INSTRUCTIONS DISCUSSED W/ PT. PT STATES UNDERSTADNING. PT AMBULATING DOWNSTAIRS TO GO HOME.
--- NOTE | 2019-03-01 09:50 | NUR ---
Discharge instructions given. Patient verbalizes understanding of same. Discharged in stable condition via Ambulatory to Home with *Other. All belongings sent with pt.
[2019-03-01 10:31] VITALS: BP 98/56
== END 2019-03-01 09:46 | disposition home or self-care (01) | DRG 641 ==
LOC: ED 18:06 → ED-I 19:55 → ED 20:08 → MS2 20:09
PROVIDERS: Family Medicine; ADMIT Internal Medicine Geriatric Medicine; ATTEND Internal Medicine Geriatric Medicine
DX: E83.51 Hypocalcemia (principal); E83.42 Hypomagnesemia; E89.2 Postprocedural hypoparathyroidism; E89.0 Postprocedural hypothyroidism; I11.0 Hypertensive heart disease with heart failure; I50.9 Heart failure, unspecified; I48.91 Unspecified atrial fibrillation; I25.10 Atherosclerotic heart disease of native coronary artery without angina pectoris; J44.9 Chronic obstructive pulmonary disease, unspecified; K21.9 Gastro-esophageal reflux disease without esophagitis; K27.9 Peptic ulcer, site unspecified, unspecified as acute or chronic, without hemorrhage or perforation; M19.90 Unspecified osteoarthritis, unspecified site; E11.649 Type 2 diabetes mellitus with hypoglycemia without coma; M25.511 Pain in right shoulder; R07.89 Other chest pain; F17.210 Nicotine dependence, cigarettes, uncomplicated; I95.9 Hypotension, unspecified; Y83.6 Removal of other organ (partial) (total) as the cause of abnormal reaction of the patient, or of later complication, without mention of misadventure at the time of the procedure; Z91.19 Patient's noncompliance with other medical treatment and regimen; Z79.84 Long term (current) use of oral hypoglycemic drugs
CPT/HCPCS: G0378

== ENCOUNTER 2019-03-18 10:33 | Inpatient (IN) | payer MEDICARE ==
[~2019-03-18] VITALS: Ht 175.3 cm; Wt 72.3 kg
--- NOTE | 2019-03-18 10:50 | NUR ---
PT UP AMBULATORY IN ROOM IN NO DISTRESS. URINE SAMPLE GIVEN AND CHANGED TO GOWN
--- NOTE | 2019-03-18 11:05 | NUR ---
PT CALLED FOR HEAD TO BE LOWERED , LIGHTS DIMMED FOR COMFORT. CALL LIGHT WITHIN REACH.
[2019-03-18 11:19] LABS: URINE BILIRUBIN - DIPSTICK NEGATIVE (NEGATIVE); URINE BLOOD DIPSTICK TRACE-INTACT (NEGATIVE); URINE COLOR YELLOW; URINE GLUCOSE - DIPSTICK >=1000 mg/dL (NEGATIVE); URINE KETONE NEGATIVE (NEGATIVE); URINE LEUK ESTERASE NEGATIVE (NEGATIVE); URINE NITRITE - DIPSTICK NEGATIVE (Negative); URINE PH 7.5 (4.5-8.0); URINE PROTEIN - DIPSTICK NEGATIVE (NEG-TRACE); URINE SPECIFIC GRAVITY <=1.005; URINE UROBILINOGEN - DIPSTICK 0.2 E.U./dL (0.2)
--- NOTE | 2019-03-18 11:19 | NUR ---
CALLED TO ROOM TO LOWER HEAD, APPLY ANOTHER BLANKET, MOVE TRAY TABLE AND CALL LIGHT. CALL LIGHT IN REACH ON BEDSIDE TABLE PER REQUEST OF PT.
[2019-03-18 11:20] LABS: HEMATOCRIT 36.2 % (37.0-47.0); HEMOGLOBIN 12.9 g/dl (12.0-16.0); IMMATURE GRANULOCYTES 0.4 % (0.0-5.0); MEAN CELL VOLUME 88.9 fL CALC (80.0-100.0); MEAN CORPUSCULAR HGB 31.7 pG CALC (26.0-32.0); MEAN CORPUSCULAR HGB CONC 35.6 g/L CALC (32.0-36.0); NEUT# 5.36 thou/uL (2.00-7.15); RED BLOOD COUNT 4.07 mill/uL (4.20-5.60); RED CELL DISTRI WIDTH 12.8 % (11.5-15.5)
[2019-03-18 11:43] LABS: MAGNESIUM 1.6 mg/dL (1.6-2.3)
--- NOTE | 2019-03-18 11:58 | NUR ---
PT RESTING IN NO DISTRESS, NO SEIZURE ACTIVITY NOTED. VSS.
[2019-03-18 12:00] LABS: ALBUMIN 4.4 g/dL (3.2-5.0); ALKALINE PHOSPHATASE 58 u/l (38-126); ANION GAP 18 (6-22 (CALC)); BILIRUBIN, TOTAL 0.5 mg/dL (0.0-1.4); BUN 19 mg/dL (7-17); BUN/CREATININE RATIO 30 (12-20 (CALC)); CARBON DIOXIDE 25 mmol/l (22-30); CHLORIDE 92 mmol/l (95-108); CREATININE 0.6 mg/dL (0.5-1.0); GFR > 60 ML/MIN (>=60 (CALC)); GFR FOR AFR.AMER. > 60 ML/MIN (>=60 (CALC)); POTASSIUM 4.8 mmol/l (3.5-5.1); SGOT/AST 29 u/l (14-36); SODIUM 130 mmol/l (137-146)
--- NOTE | 2019-03-18 12:01 | NUR ---
GERTRUDE FROM LAB CALLED CALCIUM IS 5.4. TREATMENT IN PRGRESS AT THIS TIME
[2019-03-18] MEDS ORDERED: [UNRECOGNIZED DRUG - OTHER] PO (12:05)
[2019-03-18] MEDS ORDERED: MAGNESIUM400 M1 PO (12:06)
[2019-03-18] MEDS ORDERED: POTASSIUM99 MG PO (12:08)
[2019-03-18] MEDS ORDERED: VITAMIN D1000 UNIT PO (12:09)
[2019-03-18] MEDS ORDERED: LEVEMIR100 UNIT/M SC (12:13)
[2019-03-18] MEDS ORDERED: TUMS ULTRA 101000 MG PO (12:13)
--- NOTE | 2019-03-18 12:15 | NUR ---
PT ASSISTED UP TO BATHROOM WITH SBA AND USE OF CANE. VSS. PT DENIES PAIN, STATES "I WANT OUT OF THIS BED IT IS UNCOMFORTABLE. OFFERED FOR PT TO SIT UP IN CHAIR, PT DECLINED. ASSISTED BACK INTO BED AND MADE COMFORTABLE.
--- NOTE | 2019-03-18 13:00 | NUR ---
ASSISTED PT UP TO BATHROOM,AMBULATORY WITH CANE. NOTED SWELLING ABOVE RT FOREARM IV SITE, PT DENIES PAIN, NO REDENSS. CHARGE NURSE INFORMED ADN IV REMOVED. PT TOLERATED WELL
--- NOTE | 2019-03-18 13:20 | NUR ---
Admission Note Report Given to: SBAR PRINTED TO FLOOR Transported by: X Wheelchair Stretcher Transported with: X Nurse Transporter X Patent IV O2 X Track Hoe Operator
[2019-03-18 13:30] VITALS: BP 115/63
--- NOTE | 2019-03-18 13:41 | NUR ---
REPORT RECEIVED FROM CHANTEL IN ED, PT ARRIVED ON UNIT VIA STRETCHER AND AMBULATED TO BED, ALERT AND ORIENTED X 3, NO C/O DISCOMFORT, ORIENTED TO ROOM AND CALL YANG, TELE MONITOR IN PLACE, PT WEIGHED AND VS MEASURED AND RECORDED, WILL CONTINUE TO MONITOR.
[2019-03-18 15:05] VITALS: BP 120/76
--- NOTE | 2019-03-18 16:00 | NUR ---
ASSISTED TO BSC THEN TO SHOWER AFTER INCONTINENCE OF BOWEL, THEN BACK TO BED AFTER LINNEN CHANGE, ALL NEEDS ADDRESSED, CALL YANG IN REACH.
--- NOTE | 2019-03-18 19:00 | NUR ---
RECEIVED REPORT FROM NURSE EBONY, PATIENT ALERT AND ORIENTED, ABLE TO MAKE NEEDS KNOWN, ON SEIZURE PRECAUTION, DENIES PAIN OR DISCOMFORTS CALL LIGHT AT REACH.
[2019-03-18 19:50] VITALS: BP 126/73
--- NOTE | 2019-03-18 20:14 | NUR ---
PATIENT ALERT AND ORIENTED, ABLE TO MAKE NEEDS KNOWN, REMAINS ON SEIZURE PRECAUTION, WITH SALINE LOCK ON RFA G22, REMAINS ON TELE SB 57, DENIES PAIN OR DISCOMFORTS AT THIS TIME, PATIENT ASSISTED TO BEDSIDE COMMODE, AND ASSISTED BACK IN BED, CALL LIGHT AT REACH.
--- NOTE | 2019-03-18 23:26 | NUR ---
PATIENT RESTING IN BED WATCHING TV NO DISCOMFORTS NOTED AT THIS TIME, CALL LIGHT AT REACH.
[2019-03-19 00:03] VITALS: BP 116/72
--- NOTE | 2019-03-19 04:33 | NUR ---
PATIENT APPEARS TO BE SLEEPING WITH EYES CLOSED EVEN UNLABORED BREATHING NO DISCOMFORTS NOTED AT THIS TIME,CALL LIGHT WITHIN REACH.
[2019-03-19 04:36] LABS: HEMATOCRIT 36.2 % (37.0-47.0); HEMOGLOBIN 12.6 g/dl (12.0-16.0); IMMATURE GRANULOCYTES 0.4 % (0.0-5.0); MEAN CELL VOLUME 90.3 fL CALC (80.0-100.0); MEAN CORPUSCULAR HGB 31.4 pG CALC (26.0-32.0); MEAN CORPUSCULAR HGB CONC 34.8 g/L CALC (32.0-36.0); NEUT# 7.11 thou/uL (2.00-7.15); RED BLOOD COUNT 4.01 mill/uL (4.20-5.60); RED CELL DISTRI WIDTH 12.5 % (11.5-15.5)
[2019-03-19 04:55] LABS: ALBUMIN 3.7 g/dL (3.2-5.0); ALKALINE PHOSPHATASE 57 u/l (38-126); ANION GAP 13 (6-22 (CALC)); BILIRUBIN, TOTAL 0.3 mg/dL (0.0-1.4); BUN 16 mg/dL (7-17); BUN/CREATININE RATIO 27 (12-20 (CALC)); CARBON DIOXIDE 25 mmol/l (22-30); CHLORIDE 97 mmol/l (95-108); CREATININE 0.6 mg/dL (0.5-1.0); GFR > 60 ML/MIN (>=60 (CALC)); GFR FOR AFR.AMER. > 60 ML/MIN (>=60 (CALC)); LIPASE 139 u/l (23-300); MAGNESIUM 1.5 mg/dL (1.6-2.3); POTASSIUM 4.4 mmol/l (3.5-5.1); SGOT/AST 22 u/l (14-36); SODIUM 131 mmol/l (137-146)
[2019-03-19 04:56] LABS: AMYLASE < 30 u/l (30-110)
[2019-03-19 05:39] VITALS: BP 113/61
--- NOTE | 2019-03-19 07:40 | NUR ---
SHIFT CHANGE REPORT, PT SLEEPING BUT AWAKENED TO VERBAL STIMULI, ORIENTED, NO C/O DISCOMFORT AT THIS TIME, SET UP FOR MEAL, CALL YANG IN REACH.
[2019-03-19 07:49] VITALS: BP 114/52
[2019-03-19 10:50] VITALS: BP 112/58
--- NOTE | 2019-03-19 12:00 | NUR ---
DR BELLA ROUNDED, DISCUSSED PLAN OF CARE, WROTE ORDERS, PT STATED UNDERSTANDING.
[2019-03-19 14:40] VITALS: BP 131/69
--- NOTE | 2019-03-19 16:00 | NUR ---
RESTING IN BED WITH HEAD COVERED UNDER BLANKETS, NO NEW COMPLAINS, ALL NEEDS ADDRESSED.
--- NOTE | 2019-03-19 19:30 | NUR ---
PATIENT RESTING IN BED AT THIS TIME-AWAKE ALERT AND ORIENTEDX3. PATIENT STATES THAT SHE IS FEELING BETTER AND THAT THE DIARRHEA HAS SLOWED DOWN. DENIES ANY NEED FOR IMODIUM AT THIS TIME. TELE MONITOR IN PLACE. SALINE LOCK TO RIGHT FOREARM INTACT AND APPEARS HEALTHY AT THIS TIME. SIEZURE PRECAUTIONS IN PLACE WITH SIDERAILS PADDED. SAFETY PRECAUTIONS REINFORCED. CALL LIGHT IN REACH. WILL CONT TO MONITOR.
[2019-03-19 19:49] VITALS: BP 124/68
--- NOTE | 2019-03-19 21:00 | NUR ---
[id number] MEDICATED WITH LEVEMIR 15UNITS SQ ORDERED. PROVIDED WITH HS SNACK. CALL LIGHT IN REACH. WILL CONT TO MONITOR.
[2019-03-20 00:30] VITALS: BP 133/67
--- NOTE | 2019-03-20 00:46 | NUR ---
APPEARS SLEEPING AT THIS TIME WITH EYES CLOSED. RESP ARE EVEN AND UNLABORED. CALL LIGHT IN REACH. WILL CONT TO MONITOR.
[2019-03-20 04:15] VITALS: BP 138/72
--- NOTE | 2019-03-20 04:27 | NUR ---
PATIENT AWAKE FOR VS-SKIN IS COOL AND CLAMMY. PATIENT WITH NO COMPLAINTS-BS CHECKED AND WAS 81-PROVIDED WITH SNACK. WILL CONT TO MONITOR.
[2019-03-20 05:02] LABS: HEMATOCRIT 38.6 % (37.0-47.0); HEMOGLOBIN 13.3 g/dl (12.0-16.0); IMMATURE GRANULOCYTES 0.5 % (0.0-5.0); MEAN CELL VOLUME 91.5 fL CALC (80.0-100.0); MEAN CORPUSCULAR HGB 31.5 pG CALC (26.0-32.0); MEAN CORPUSCULAR HGB CONC 34.5 g/L CALC (32.0-36.0); NEUT# 8.65 thou/uL (2.00-7.15); RED BLOOD COUNT 4.22 mill/uL (4.20-5.60); RED CELL DISTRI WIDTH 12.7 % (11.5-15.5)
[2019-03-20 05:22] LABS: ALBUMIN 3.8 g/dL (3.2-5.0); ALKALINE PHOSPHATASE 55 u/l (38-126); ANION GAP 13 (6-22 (CALC)); BILIRUBIN, TOTAL 0.2 mg/dL (0.0-1.4); BUN 15 mg/dL (7-17); BUN/CREATININE RATIO 25 (12-20 (CALC)); CARBON DIOXIDE 25 mmol/l (22-30); CHLORIDE 98 mmol/l (95-108); CREATININE 0.6 mg/dL (0.5-1.0); GFR > 60 ML/MIN (>=60 (CALC)); GFR FOR AFR.AMER. > 60 ML/MIN (>=60 (CALC)); MAGNESIUM 1.6 mg/dL (1.6-2.3); POTASSIUM 4.1 mmol/l (3.5-5.1); SGOT/AST 15 u/l (14-36); SODIUM 132 mmol/l (137-146); TOTAL PROTEIN 6.3 g/dL (6.3-8.2)
[2019-03-20 07:16] VITALS: BP 141/63
--- NOTE | 2019-03-20 08:10 | NUR ---
DR. VELIZ AT BEDSIDE TO ASSESS PT. ASSESSMENT DONE. TELE IN PLACE. PT IS A&O X3. PT DENIES PAIN AT THIS TIME. PT STATED THAT SHE IS READY TO GO HOME. PT DENIES ANY OTHER NEEDS AT THIS TIME. CALL LIGHT IN REACH.
--- NOTE | 2019-03-20 09:12 | NUR ---
Discharge instructions given. Patient verbalizes understanding of same. Discharged in stable condition via Ambulatory to Home . All belongings sent with pt.
== END 2019-03-20 09:13 | disposition home or self-care (01) | DRG 641 ==
LOC: ED 10:33 → ED-I 12:04 → ED 12:31 → MS2 12:32
PROVIDERS: Emergency Medicine; ADMIT Internal Medicine Nephrology; ATTEND Internal Medicine Nephrology
DX: E83.51 Hypocalcemia (principal); I11.0 Hypertensive heart disease with heart failure; I50.9 Heart failure, unspecified; G40.909 Epilepsy, unspecified, not intractable, without status epilepticus; J44.9 Chronic obstructive pulmonary disease, unspecified; E89.2 Postprocedural hypoparathyroidism; E89.0 Postprocedural hypothyroidism; E78.5 Hyperlipidemia, unspecified; E83.42 Hypomagnesemia; E11.40 Type 2 diabetes mellitus with diabetic neuropathy, unspecified; F17.210 Nicotine dependence, cigarettes, uncomplicated; E11.51 Type 2 diabetes mellitus with diabetic peripheral angiopathy without gangrene; Z79.4 Long term (current) use of insulin; Z89.431 Acquired absence of right foot; Z91.19 Patient's noncompliance with other medical treatment and regimen

== ENCOUNTER 2019-03-20 18:53 | Emergency (ER) | payer MEDICARE ==
[~2019-03-20] VITALS: Ht 175.3 cm; Wt 90.0 kg
[~2019-03-20 18:53] MED LIST changes: +VITAMIN D1000 UNIT PO; +[UNRECOGNIZED DRUG - OTHER] PO
[2019-03-20 19:25] LABS: HEMATOCRIT 38.1 % (37.0-47.0); HEMOGLOBIN 13.4 g/dl (12.0-16.0); IMMATURE GRANULOCYTES 0.5 % (0.0-5.0); MEAN CELL VOLUME 90.1 fL CALC (80.0-100.0); MEAN CORPUSCULAR HGB 31.7 pG CALC (26.0-32.0); MEAN CORPUSCULAR HGB CONC 35.2 g/L CALC (32.0-36.0); NEUT# 10.64 thou/uL (2.00-7.15); RED BLOOD COUNT 4.23 mill/uL (4.20-5.60); RED CELL DISTRI WIDTH 12.5 % (11.5-15.5)
[2019-03-20 19:45] LABS: ALBUMIN 4.5 g/dL (3.2-5.0); ALKALINE PHOSPHATASE 64 u/l (38-126); ANION GAP 21 (6-22 (CALC)); BUN 17 mg/dL (7-17); BUN/CREATININE RATIO 24 (12-20 (CALC)); CARBON DIOXIDE 22 mmol/l (22-30); CHLORIDE 90 mmol/l (95-108); CREATININE 0.7 mg/dL (0.5-1.0); GFR > 60 ML/MIN (>=60 (CALC)); GFR FOR AFR.AMER. > 60 ML/MIN (>=60 (CALC)); MAGNESIUM 1.6 mg/dL (1.6-2.3); SGOT/AST 19 u/l (14-36); SODIUM 129 mmol/l (137-146); TOTAL PROTEIN 7.4 g/dL (6.3-8.2)
[2019-03-20 19:51] LABS: BILIRUBIN, TOTAL 0.3 mg/dL (0.0-1.4)
[2019-03-20 19:57] LABS: MYOGLOBIN 167 ng/mL (0 - 62)
[2019-03-20 20:15] LABS: TSH, 3RD GENERATION 2.76 uIU/mL (0.47 - 4.68)
[2019-03-20 20:41] LABS: URINE BILIRUBIN - DIPSTICK NEGATIVE (NEGATIVE); URINE BLOOD DIPSTICK TRACE-INTACT (NEGATIVE); URINE COLOR YELLOW; URINE GLUCOSE - DIPSTICK NEGATIVE (NEGATIVE); URINE KETONE NEGATIVE (NEGATIVE); URINE LEUK ESTERASE NEGATIVE (NEGATIVE); URINE NITRITE - DIPSTICK NEGATIVE (Negative); URINE PH 7.5 (4.5-8.0); URINE PROTEIN - DIPSTICK TRACE mg/dL (NEG-TRACE); URINE SPECIFIC GRAVITY 1.015; URINE UROBILINOGEN - DIPSTICK 0.2 E.U./dL (0.2)
[2019-03-20 20:44] LABS: BARBITURATES NEGATIVE (NEGATIVE); COCAINE NEGATIVE (NEGATIVE); METHADONE NEGATIVE (NEGATIVE); OXCYCODONE NEGATIVE (NEGATIVE); TETRAHYDROCANNABIONOL NEGATIVE (NEGATIVE); TRICYLIC ANTIDEPRESSANTS NEGATIVE (NEGATIVE)
[2019-03-20 21:15] VITALS: BP 103/65
== END 2019-03-20 21:20 | disposition home or self-care (01) ==
LOC: ED 18:53
PROVIDERS: Emergency Medicine
DX: G40.909 Epilepsy, unspecified, not intractable, without status epilepticus (principal); I11.0 Hypertensive heart disease with heart failure; I50.9 Heart failure, unspecified; E11.9 Type 2 diabetes mellitus without complications; F17.210 Nicotine dependence, cigarettes, uncomplicated

== ENCOUNTER 2019-04-14 12:48 | Inpatient (IN) | payer MEDICARE ==
[~2019-04-14] VITALS: Ht 175.3 cm; Wt 60.1 kg
[2019-04-14] VITALS (7 sets, daily range): BP systolic 120–152; BP diastolic 59–76
[2019-04-14 13:19] LABS: IMMATURE GRANULOCYTES 0.5 % (0.0-5.0); MEAN CELL VOLUME 90.4 fL CALC (80.0-100.0); MEAN CORPUSCULAR HGB 30.7 pG CALC (26.0-32.0); NEUT# 11.25 thou/uL (2.00-7.15); RED BLOOD COUNT 5.21 mill/uL (4.20-5.60); RED CELL DISTRI WIDTH 12.1 % (11.5-15.5)
[2019-04-14 13:20] LABS: HEMATOCRIT 47.1 % (37.0-47.0)
[2019-04-14 13:35] LABS: ALBUMIN 4.9 g/dL (3.2-5.0); CREATININE 1.4 mg/dL (0.5-1.0); POTASSIUM 3.7 mmol/l (3.5-5.1); TOTAL PROTEIN 8.6 g/dL (6.3-8.2)
[2019-04-14 13:46] LABS: BILIRUBIN, TOTAL 0.6 mg/dL (0.0-1.4)
[2019-04-14 14:03] LABS: URINE BILIRUBIN - DIPSTICK NEGATIVE (NEGATIVE); URINE BLOOD DIPSTICK SMALL (NEGATIVE); URINE GLUCOSE - DIPSTICK 500 mg/dL (NEGATIVE); URINE KETONE NEGATIVE (NEGATIVE); URINE LEUK ESTERASE TRACE (NEGATIVE); URINE NITRITE - DIPSTICK NEGATIVE (Negative); URINE PROTEIN - DIPSTICK 30 mg/dL (NEG-TRACE); URINE SPECIFIC GRAVITY 1.015; URINE UROBILINOGEN - DIPSTICK 0.2 E.U./dL (0.2)
[2019-04-14 14:04] LABS: URINE COLOR STRAW
[2019-04-14 14:05] LABS: TSH, 3RD GENERATION 0.43 uIU/mL (0.47 - 4.68)
[2019-04-14 14:05] LABS: URINE AMORPH SEDIMENT MODERATE hpf (NONE-FEW); URINE MUCUS FEW hpf (NONE-FEW); URINE RBC 0-2 RBC/hpf (0-5); URINE WBC 0-2 WBC/hpf (0-5)
[2019-04-14 21:32] LABS: CREATININE 1.3 mg/dL (0.5-1.0)
[2019-04-14 21:40] LABS: POTASSIUM 2.8 mmol/l (3.5-5.1)
[2019-04-15] VITALS (23 sets, daily range): BP systolic 135–198; BP diastolic 66–100
[2019-04-15 05:01] LABS: IMMATURE GRANULOCYTES 0.5 % (0.0-5.0); MEAN CELL VOLUME 92.6 fL CALC (80.0-100.0); MEAN CORPUSCULAR HGB 31.1 pG CALC (26.0-32.0); MEAN CORPUSCULAR HGB CONC 33.6 g/L CALC (32.0-36.0); NEUT# 9.68 thou/uL (2.00-7.15); RED BLOOD COUNT 4.34 mill/uL (4.20-5.60); RED CELL DISTRI WIDTH 12.2 % (11.5-15.5)
[2019-04-15 05:16] LABS: BILIRUBIN, TOTAL 0.4 mg/dL (0.0-1.4); CREATININE 1.3 mg/dL (0.5-1.0); HEMATOCRIT 40.2 % (37.0-47.0); HEMOGLOBIN 13.5 g/dl (12.0-16.0); POTASSIUM 3.2 mmol/l (3.5-5.1)
[2019-04-15 05:25] LABS: ALBUMIN 3.7 g/dL (3.2-5.0); TOTAL PROTEIN 6.5 g/dL (6.3-8.2)
[2019-04-15] MEDS ORDERED: ACETAMINOP160 MG/5 M PO (07:02)
[2019-04-15] MEDS ORDERED: LIPITOR10 M1 PO (10:54)
[2019-04-15] MEDS ORDERED: CALCIUM600 M1 PO (10:55)
[2019-04-15] MEDS ORDERED: ENALAPRIL10 MG PO (10:56)
[2019-04-15] MEDS ORDERED: LASIX 40 MG TAB40 MG PO (10:56)
[2019-04-15] MEDS ORDERED: LEVEMIR100 UNIT/M SC (10:57)
[2019-04-15] MEDS ORDERED: GLIPIZIDE10 M2 PO (10:57)
[2019-04-15] MEDS ORDERED: EUTHYROX200 MCG PO (10:58)
[2019-04-15] MEDS ORDERED: MAGNESIUM400 MG PO (10:59)
[2019-04-15] MEDS ORDERED: METFORMIN1000 MG PO (11:00)
[2019-04-15] MEDS ORDERED: POTASSIUM99 MG PO (11:01)
[2019-04-15] MEDS ORDERED: TUMS500 MG PO (11:01)
[2019-04-15] MEDS ORDERED: VITAMIN D1000 UNIT PO (11:02)
[2019-04-15 16:53] LABS: CREATININE 1.5 mg/dL (0.5-1.0); POTASSIUM 3.3 mmol/l (3.5-5.1)
[2019-04-15 18:08] LABS: BARBITURATES NEGATIVE (NEGATIVE); COCAINE NEGATIVE (NEGATIVE); METHADONE NEGATIVE (NEGATIVE); OXCYCODONE NEGATIVE (NEGATIVE); TETRAHYDROCANNABIONOL NEGATIVE (NEGATIVE); TRICYLIC ANTIDEPRESSANTS NEGATIVE (NEGATIVE)
[2019-04-16] VITALS (18 sets, daily range): BP systolic 134–190; BP diastolic 67–101
[2019-04-16 05:44] LABS: HEMOGLOBIN 15.4 g/dl (12.0-16.0); IMMATURE GRANULOCYTES 0.4 % (0.0-5.0); MEAN CELL VOLUME 94.4 fL CALC (80.0-100.0); MEAN CORPUSCULAR HGB 30.9 pG CALC (26.0-32.0); MEAN CORPUSCULAR HGB CONC 32.8 g/L CALC (32.0-36.0); NEUT# 8.28 thou/uL (2.00-7.15); RED BLOOD COUNT 4.98 mill/uL (4.20-5.60); RED CELL DISTRI WIDTH 12.5 % (11.5-15.5)
[2019-04-16 06:14] LABS: ALBUMIN 4.1 g/dL (3.2-5.0); BILIRUBIN, TOTAL 0.4 mg/dL (0.0-1.4); CREATININE 1.6 mg/dL (0.5-1.0); TOTAL PROTEIN 7.3 g/dL (6.3-8.2)
[2019-04-17] VITALS (16 sets, daily range): BP systolic 113–175; BP diastolic 78–100
[2019-04-17 05:09] LABS: HEMATOCRIT 46.6 % (37.0-47.0); HEMOGLOBIN 15.3 g/dl (12.0-16.0); IMMATURE GRANULOCYTES 0.4 % (0.0-5.0); MEAN CORPUSCULAR HGB 30.5 pG CALC (26.0-32.0); MEAN CORPUSCULAR HGB CONC 32.8 g/L CALC (32.0-36.0); NEUT# 9.34 thou/uL (2.00-7.15); RED BLOOD COUNT 5.01 mill/uL (4.20-5.60); RED CELL DISTRI WIDTH 12.3 % (11.5-15.5)
[2019-04-17 05:36] LABS: ALBUMIN 4.1 g/dL (3.2-5.0); BILIRUBIN, TOTAL 0.5 mg/dL (0.0-1.4); CREATININE 1.4 mg/dL (0.5-1.0); POTASSIUM 2.9 mmol/l (3.5-5.1); TOTAL PROTEIN 7.2 g/dL (6.3-8.2)
[2019-04-17 12:38] LABS: CREATININE 1.5 mg/dL (0.5-1.0); POTASSIUM 3.2 mmol/l (3.5-5.1)
[2019-04-17 16:54] LABS: CREATININE 1.5 mg/dL (0.5-1.0); POTASSIUM 3.5 mmol/l (3.5-5.1)
[2019-04-18] VITALS (30 sets, daily range): BP systolic 91–177; BP diastolic 51–101
[2019-04-18 06:21] LABS: ALBUMIN 4.1 g/dL (3.2-5.0); BILIRUBIN, TOTAL 0.6 mg/dL (0.0-1.4); CREATININE 1.4 mg/dL (0.5-1.0); POTASSIUM 3.2 mmol/l (3.5-5.1); TOTAL PROTEIN 7.1 g/dL (6.3-8.2)
[2019-04-18 16:37] LABS: CREATININE 1.4 mg/dL (0.5-1.0); POTASSIUM 3.5 mmol/l (3.5-5.1)
[2019-04-19] VITALS (41 sets, daily range): BP systolic 79–152; BP diastolic 63–102
[2019-04-19 05:32] LABS: ALBUMIN 3.8 g/dL (3.2-5.0); BILIRUBIN, TOTAL 0.7 mg/dL (0.0-1.4); CREATININE 1.4 mg/dL (0.5-1.0); POTASSIUM 3.2 mmol/l (3.5-5.1); TOTAL PROTEIN 6.8 g/dL (6.3-8.2)
[2019-04-19 05:33] LABS: HEMATOCRIT 48.2 % (37.0-47.0); HEMOGLOBIN 15.6 g/dl (12.0-16.0); IMMATURE GRANULOCYTES 0.5 % (0.0-5.0); MEAN CELL VOLUME 93.8 fL CALC (80.0-100.0); MEAN CORPUSCULAR HGB 30.4 pG CALC (26.0-32.0); MEAN CORPUSCULAR HGB CONC 32.4 g/L CALC (32.0-36.0); NEUT# 8.81 thou/uL (2.00-7.15); RED BLOOD COUNT 5.14 mill/uL (4.20-5.60); RED CELL DISTRI WIDTH 12.4 % (11.5-15.5)
[2019-04-20] VITALS (13 sets, daily range): BP systolic 114–153; BP diastolic 58–76
[2019-04-20 06:04] LABS: HEMATOCRIT 44.9 % (37.0-47.0); HEMOGLOBIN 14.9 g/dl (12.0-16.0); IMMATURE GRANULOCYTES 0.6 % (0.0-5.0); MEAN CELL VOLUME 93.5 fL CALC (80.0-100.0); MEAN CORPUSCULAR HGB CONC 33.2 g/L CALC (32.0-36.0); NEUT# 9.15 thou/uL (2.00-7.15); RED BLOOD COUNT 4.8 mill/uL (4.20-5.60); RED CELL DISTRI WIDTH 12.5 % (11.5-15.5)
[2019-04-20 06:14] LABS: ALBUMIN 3.7 g/dL (3.2-5.0); BILIRUBIN, TOTAL 0.7 mg/dL (0.0-1.4); CREATININE 1.3 mg/dL (0.5-1.0); POTASSIUM 3.1 mmol/l (3.5-5.1); TOTAL PROTEIN 6.7 g/dL (6.3-8.2)
[2019-04-21] VITALS (12 sets, daily range): BP systolic 107–133; BP diastolic 65–85
[2019-04-21 05:42] LABS: HEMATOCRIT 47.1 % (37.0-47.0); HEMOGLOBIN 15.9 g/dl (12.0-16.0); IMMATURE GRANULOCYTES 1.3 % (0.0-5.0); MEAN CORPUSCULAR HGB 31.1 pG CALC (26.0-32.0); MEAN CORPUSCULAR HGB CONC 33.8 g/L CALC (32.0-36.0); NEUT# 11.06 thou/uL (2.00-7.15); RED BLOOD COUNT 5.12 mill/uL (4.20-5.60); RED CELL DISTRI WIDTH 12.3 % (11.5-15.5)
[2019-04-21 05:51] LABS: ANION GAP 12 (6-22 (CALC)); BUN 38 mg/dL (7-17); BUN/CREATININE RATIO 35 (12-20 (CALC)); CHLORIDE 108 mmol/l (95-108); CREATININE 1.1 mg/dL (0.5-1.0); GFR 51 ML/MIN (>=60 (CALC)); GFR FOR AFR.AMER. > 60 ML/MIN (>=60 (CALC)); MAGNESIUM 1.4 mg/dL (1.6-2.3); POTASSIUM 3.1 mmol/l (3.5-5.1); SODIUM 145 mmol/l (137-146)
[2019-04-21 06:04] LABS: CARBON DIOXIDE 28 mmol/l (22-30)
[2019-04-21 10:31] LABS: URINE BILIRUBIN - DIPSTICK NEGATIVE (NEGATIVE); URINE BLOOD DIPSTICK NEGATIVE (NEGATIVE); URINE COLOR YELLOW; URINE GLUCOSE - DIPSTICK NEGATIVE (NEGATIVE); URINE KETONE NEGATIVE (NEGATIVE); URINE LEUK ESTERASE TRACE (Negative); URINE NITRITE - DIPSTICK NEGATIVE (Negative); URINE PROTEIN - DIPSTICK NEGATIVE (NEG-TRACE); URINE SPECIFIC GRAVITY <=1.005; URINE UROBILINOGEN - DIPSTICK 0.2 E.U./dL (0.2)
[2019-04-21 11:03] LABS: URINE CLARITY CLEAR
[2019-04-21 20:46] LABS: ANION GAP 12 (6-22 (CALC)); BUN 34 mg/dL (7-17); BUN/CREATININE RATIO 32 (12-20 (CALC)); CARBON DIOXIDE 25 mmol/l (22-30); CHLORIDE 109 mmol/l (95-108); GFR 57 ML/MIN (>=60 (CALC)); GFR FOR AFR.AMER. > 60 ML/MIN (>=60 (CALC)); POTASSIUM 3.1 mmol/l (3.5-5.1); SODIUM 142 mmol/l (137-146)
[2019-04-22] VITALS (13 sets, daily range): BP systolic 95–129; BP diastolic 55–73
[2019-04-22 05:51] LABS: ANION GAP 13 (6-22 (CALC)); BUN 31 mg/dL (7-17); BUN/CREATININE RATIO 30 (12-20 (CALC)); CARBON DIOXIDE 25 mmol/l (22-30); CHLORIDE 108 mmol/l (95-108); CREATININE 1.1 mg/dL (0.5-1.0); GFR 51 ML/MIN (>=60 (CALC)); GFR FOR AFR.AMER. > 60 ML/MIN (>=60 (CALC)); POTASSIUM 3.2 mmol/l (3.5-5.1); SODIUM 142 mmol/l (137-146)
[2019-04-22 05:53] LABS: HEMATOCRIT 46.2 % (37.0-47.0); HEMOGLOBIN 15.5 g/dl (12.0-16.0); IMMATURE GRANULOCYTES 0.9 % (0.0-5.0); MEAN CORPUSCULAR HGB 30.9 pG CALC (26.0-32.0); MEAN CORPUSCULAR HGB CONC 33.5 g/L CALC (32.0-36.0); NEUT# 12.36 thou/uL (2.00-7.15); RED BLOOD COUNT 5.02 mill/uL (4.20-5.60); RED CELL DISTRI WIDTH 12.3 % (11.5-15.5)
[2019-04-23] VITALS (13 sets, daily range): BP systolic 89–148; BP diastolic 55–93
[2019-04-23 05:21] LABS: HEMATOCRIT 43.9 % (37.0-47.0); IMMATURE GRANULOCYTES 0.4 % (0.0-5.0); MEAN CELL VOLUME 90.1 fL CALC (80.0-100.0); MEAN CORPUSCULAR HGB 30.8 pG CALC (26.0-32.0); MEAN CORPUSCULAR HGB CONC 34.2 g/L CALC (32.0-36.0); NEUT# 6.71 thou/uL (2.00-7.15); RED BLOOD COUNT 4.87 mill/uL (4.20-5.60); RED CELL DISTRI WIDTH 12.3 % (11.5-15.5)
[2019-04-23 05:46] LABS: ALBUMIN 3.4 g/dL (3.2-5.0); ALKALINE PHOSPHATASE 85 u/l (38-126); BUN 29 mg/dL (7-17); BUN/CREATININE RATIO 29 (12-20 (CALC)); CARBON DIOXIDE 24 mmol/l (22-30); CHLORIDE 111 mmol/l (95-108); GFR 57 ML/MIN (>=60 (CALC)); GFR FOR AFR.AMER. > 60 ML/MIN (>=60 (CALC)); SGOT/AST 16 u/l (14-36); SODIUM 143 mmol/l (137-146); TOTAL PROTEIN 6.4 g/dL (6.3-8.2)
[2019-04-23 05:51] LABS: ANION GAP 12 (6-22 (CALC)); BILIRUBIN, TOTAL 0.3 mg/dL (0.0-1.4); POTASSIUM 3.9 mmol/l (3.5-5.1)
== END 2019-04-23 22:30 | disposition short-term general hospital (02) | DRG 641 ==
LOC: ED 12:48 → ED-I 15:21 → ED 15:35 → ICU 15:36 → ED 15:36 → ICU 15:36
PROVIDERS: Emergency Medicine; Internal Medicine; ADMIT Internal Medicine Geriatric Medicine; ATTEND Internal Medicine
PROC: 0T9B70Z Drainage of Bladder with Drainage Device, Via Natural or Artificial Opening (ICD-10-PCS; principal; 2019-04-14)
DX: E83.52 Hypercalcemia (principal); E87.0 Hyperosmolality and hypernatremia; T50.3X5A Adverse effect of electrolytic, caloric and water-balance agents, initial encounter; E11.65 Type 2 diabetes mellitus with hyperglycemia; E83.41 Hypermagnesemia; I11.0 Hypertensive heart disease with heart failure; I50.9 Heart failure, unspecified; G40.409 Other generalized epilepsy and epileptic syndromes, not intractable, without status epilepticus; R68.0 Hypothermia, not associated with low environmental temperature; E89.0 Postprocedural hypothyroidism; E89.2 Postprocedural hypoparathyroidism; I48.2 Chronic atrial fibrillation; E83.51 Hypocalcemia; E83.42 Hypomagnesemia; E11.649 Type 2 diabetes mellitus with hypoglycemia without coma; I25.10 Atherosclerotic heart disease of native coronary artery without angina pectoris; J44.9 Chronic obstructive pulmonary disease, unspecified; K21.9 Gastro-esophageal reflux disease without esophagitis; K27.9 Peptic ulcer, site unspecified, unspecified as acute or chronic, without hemorrhage or perforation; D64.9 Anemia, unspecified; M19.90 Unspecified osteoarthritis, unspecified site; F17.200 Nicotine dependence, unspecified, uncomplicated; Y83.6 Removal of other organ (partial) (total) as the cause of abnormal reaction of the patient, or of later complication, without mention of misadventure at the time of the procedure; Z79.4 Long term (current) use of insulin; Z91.19 Patient's noncompliance with other medical treatment and regimen
CPT/HCPCS: J1650; J2060; J3475

== ENCOUNTER 2020-01-13 | Emergency (ER) | payer MEDICARE ==
[~2020-01-13] MED LIST changes: +ACETAMINOP160 MG/5 M PO; +EUTHYROX200 MCG PO; +LIPITOR10 M1 PO
[2020-01-13 22:26] LABS: URINE BILIRUBIN - DIPSTICK NEGATIVE (NEGATIVE); URINE BLOOD DIPSTICK MODERATE (NEGATIVE); URINE COLOR YELLOW; URINE GLUCOSE - DIPSTICK 500 mg/dL (NEGATIVE); URINE KETONE NEGATIVE (NEGATIVE); URINE LEUK ESTERASE NEGATIVE (NEGATIVE); URINE NITRITE - DIPSTICK NEGATIVE (Negative); URINE PH 5.5 (4.5-8.0); URINE PROTEIN - DIPSTICK NEGATIVE (NEG-TRACE); URINE UROBILINOGEN - DIPSTICK 0.2 E.U./dL (0.2)
[2020-01-13 22:42] LABS: URINE SQUAMOUS EPITHELIAL CELL FEW EPI/hpf (0-FEW)
[2020-01-13] MEDS ORDERED: PYRIDIUM200 MG PO (22:45)
[2020-01-13] MEDS ORDERED: CEPHALEXIN500 M1 PO (22:45)
== END 2020-01-13 22:50 | disposition home or self-care (01) ==
PROVIDERS: Emergency Medicine
DX: N39.0 Urinary tract infection, site not specified (principal); E11.9 Type 2 diabetes mellitus without complications; I11.0 Hypertensive heart disease with heart failure; I50.9 Heart failure, unspecified; G40.909 Epilepsy, unspecified, not intractable, without status epilepticus; F17.210 Nicotine dependence, cigarettes, uncomplicated; Z79.4 Long term (current) use of insulin

== ENCOUNTER 2020-02-12 16:59 | Emergency (ER) | payer MEDICARE ==
[~2020-02-12 16:59] MED LIST changes: +CEPHALEXIN500 M1 PO; +PYRIDIUM200 MG PO
== END 2020-02-12 17:15 | disposition expired | DRG 298 ==
LOC: ED 16:59 → EDBD 16:59 → ED 16:59 → EDAGE 16:59 → ED 17:12
PROC: 5A12012 Performance of Cardiac Output, Single, Manual (ICD-10-PCS; principal; 2020-02-12)
DX: I46.9 Cardiac arrest, cause unspecified (principal); S00.83XA Contusion of other part of head, initial encounter; S49.82XA Other specified injuries of left shoulder and upper arm, initial encounter; S49.81XA Other specified injuries of right shoulder and upper arm, initial encounter; I10 Essential (primary) hypertension; E11.9 Type 2 diabetes mellitus without complications; V89.2XXA Person injured in unspecified motor-vehicle accident, traffic, initial encounter; Z89.431 Acquired absence of right foot